=== PATIENT | female | born 1955 | race Caucasian/White ===

== ENCOUNTER 2020-06-10 07:07 | Outpatient (REF) | payer OTHER, SELFPAY ==
[2020-06-10 11:48] LABS: Alanine Aminotransferase 22 U/L (0-31); Anion Gap 15 (12-20); Aspartate Amino Transferase 17 U/L (5-31); Blood Urea Nitrogen 20 mg/dL (9-16); Calcium 9.3 mg/dL (8.4-10.2); Carbon Dioxide 29 mmol/L (22-29); Chloride 102 mmol/L (96-108); Cholesterol 212 mg/dL; Estimated Glomerular Filt Rate > 60; Glucose Fasting 90 mg/dL (60-99); HDL Cholesterol 60 mg/dL; LDL Cholesterol Calculated 132 mg/dl; Potassium 4.6 mmol/l (3.3-5.1); Sodium 141 mmol/L (135-145); Triglycerides 100 mg/dL
== END 2020-06-10 07:08 | disposition home or self-care (01) ==
LOC: HO.HMGCLDS 07:07
PROVIDERS: PCP Internal Medicine; Visit Provider Internal Medicine
DX: E78.2 Mixed hyperlipidemia (principal); M79.671 Pain in right foot; G89.29 Other chronic pain; I10 Essential (primary) hypertension; Z86.79 Personal history of other diseases of the circulatory system
CPT/HCPCS: 36415; 80048; 80061; 84443; 84450; 84460

== ENCOUNTER 2021-02-22 08:36 | Outpatient (REF) | payer OTHER, SELFPAY | END 2021-02-22 08:37 | disposition home or self-care (01) | LOC: HO.HMGCLDS 08:36 | PROVIDERS: PCP Internal Medicine; Visit Provider Internal Medicine | DX: Z20.822 Contact with and (suspected) exposure to COVID-19 (principal) | CPT/HCPCS: C9803; U0003; U0005 ==

== ENCOUNTER 2021-08-19 11:41 | Outpatient (REF) | payer OTHER, SELFPAY ==
--- NOTE | ~2021-08-19 | US_ITS ---
EXAMINATION: US RETROPERITONEAL LIMITED (RENAL ONLY) CLINICAL INFORMATION: Acute right flank pain, hematuria. COMPARISON: None TECHNIQUE: Routine retroperitoneal renal ultrasound is performed. FINDINGS: RIGHT KIDNEY: 11.8 x 4.9 x 6.8 cm (SAG x AP x TRV). The kidney is normal in size, contour, and echogenicity. Renal cortical thickness is normal. No calculi or focal parenchymal lesions. No hydronephrosis. LEFT KIDNEY: 4.9 x 4.9 x 5.1 cm (SAG x AP x TRV). The kidney is normal in size, contour, and echogenicity. Renal cortical thickness is normal. No calculi or focal parenchymal lesions. No hydronephrosis. US/US renal BI IMPRESSION: Unremarkable renal ultrasound..
== END 2021-08-19 11:42 | disposition home or self-care (01) ==
LOC: HO.HMGCX 11:41
PROVIDERS: Visit Provider Internal Medicine
DX: R10.9 Unspecified abdominal pain (principal); R31.9 Hematuria, unspecified
CPT/HCPCS: 76775

== ENCOUNTER 2021-08-23 22:45 | Emergency (ER) | payer OTHER, SELFPAY ==
--- NOTE | ~2021-08-23 | CT_ITS ---
EXAMINATION: CT ABDOMEN AND PELVIS WITHOUT CONTRAST CLINICAL INFORMATION: Left flank pain COMPARISON: None TECHNIQUE: Multidetector volumetric imaging was performed from the superior aspect of the liver through the pubic symphysis. Sagittal and coronal reformatted images were obtained on the technologist's workstation. This CT examination was performed using dose optimization techniques as appropriate, variously including the following: *Automated exposure control *Adjustment of mA and/or kV according to patient size (this includes techniques or standardized protocols for targeted exams where dose is matched to indication/reason for exam; i.e. extremities or head) *Use of iterative reconstruction technique DLP: 895 mGy-cm FINDINGS: LUNG BASES: The visualized lung bases are unremarkable. Coronary artery calcifications are present. LIVER, GALLBLADDER, AND BILIARY TREE: The liver is normal in size, shape, and attenuation. No focal hepatic lesion or biliary ductal dilatation is present. The gallbladder is unremarkable with no evidence of radiopaque gallstones, gallbladder wall thickening, or obvious pericholecystic inflammatory changes. PANCREAS: Unremarkable. SPLEEN: Unremarkable. ADRENAL GLANDS: Unremarkable. KIDNEYS AND URETERS: There is a 4 mm calculus at the left ureterovesicular junction with mild hydroureteronephrosis. No right hydronephrosis. No additional calculi are seen bilaterally. BLADDER: Mildly distended without significant wall thickening. GASTROINTESTINAL TRACT: No evidence of bowel obstruction or significant wall thickening. Sigmoid colon diverticulosis is noted. The appendix is unremarkable. No free fluid or free air is seen. ABDOMINAL WALL: No significant hernia is appreciated. LYMPH NODES: Normal. VASCULAR: Scattered atherosclerotic calcifications are noted. PELVIC VISCERA: Patient may be status post partial hysterectomy. OSSEOUS STRUCTURES: Degenerative changes are noted in the spine. CT/CT abdomen pelvis wo con IMPRESSION: 1. Left ureterovesicular junction calculus measuring 4 mm with mild hydroureteronephrosis. 2. Coronary artery calcifications. Correlation with cardiac risk factors is recommended.
[2021-08-24 00:20] LABS: MANUAL DIFF FLAG NO
[2021-08-24 00:21] LABS: Basophils Percent Auto 0.3 % (0-2); Eosinophils Absolute Auto 0.1 X10*3/uL (0.0-0.4); Eosinophils Percent Auto 1.1 % (0-4); Hematocrit 39.9 % (37.0-47.0); Hemoglobin 13.4 g/dl (12.0-16.0); Imm Gran Abs Auto 0.03 X10*3/uL (0.00-0.03); Imm Gran Pct Auto 0.3 % (0.0-0.4); Lymphocytes Absolute Auto 1.7 X10*3/uL (1.2-4.9); Lymphocytes Percent Auto 17.9 % (20-40); Mean Corpuscular HGB Conc 33.6 g/dl (31.0-35.0); Mean Corpuscular Hemoglobin 31.6 pg (27.0-33.0); Mean Corpuscular Volume 94.1 fL (80.0-98.0); Mean Platelet Volume 10.4 fL (9.4-12.3); Monocytes Absolute Auto 0.4 X10*3/uL (0.1-1.2); Monocytes Percent Auto 4.3 % (2-11); Neutrophils Absolute Auto 7.3 x10*3/uL (2.0-8.3); Neutrophils Percent Auto 76.1 % (45-73); Platelet Count 211 X10*3/uL (160-400); Red Blood Count 4.24 X10*6/uL (4.20-5.50); Red Cell Distribution Width 13.2 % (11.0-16.0); White Blood Count 9.6 X10*3/uL (4.8-10.8)
[2021-08-24 00:44] VITALS: BP 134/74; PULSE 56; RESP 18; TEMP 36.9; O2SAT 100; BMI 37.1
[2021-08-24 01:18] LABS: Alanine Aminotransferase 33 U/L (0-31); Albumin Level 4.5 g/dL (3.5-5.0); Alkaline Phosphatase 64 U/L (39-117); Anion Gap 15 (12-20); Aspartate Amino Transferase 24 U/L (5-31); Bilirubin Total 0.7 mg/dL (0.0-1.0); Blood Urea Nitrogen 24 mg/dL (9-16); Carbon Dioxide 28 mmol/L (22-29); Chloride 101 mmol/L (96-108); Creatinine Clr Calc Pharmacy 88.9; Estimated Glomerular Filt Rate > 60; Glucose Random 175 mg/dL (60-115); Sodium 140 mmol/L (135-145); Total Protein 7.1 g/dL (6.5-8.0)
[2021-08-24 02:14] LABS: Appearance Urine HAZY; Color Urine YELLOW; Glucose Urine UA NEG (NEG); Leukocyte Esterase Urine TRACE (NEG); Nitrite Urine NEG (NEG); PH 5.5 (5.0-8.0); Specific Gravity - Urine >= 1.030 (1.005-1.025); UACC Culture Trigger YES; Urine Blood 3+ (NEG); Urine Ketones 5 MG/DL (NEG); Urine Protein NEG (NEG-TRACE)
[2021-08-24 02:23] LABS: Bacteria Urine 3+ /LPF; Mucus Urine 3+ /LPF; Squamous Epithelial Cell Urine 3+ /LPF
[2021-08-24 07:18] VITALS: BP 162/73; PULSE 62; RESP 14; TEMP 36.4; O2SAT 98
--- NOTE | 2021-08-24 07:27 | ED.ABDPAIN ---
HPI - Abdominal Pain General Chief Complaint: Abdominal Pain Stated Complaint: kidney stones Time Seen by Provider: 08/24/21 00:06 Source: patient and family () Mode of arrival: ambulatory Limitations: no limitations History of Present Illness HPI narrative: 65 years old female came in for evaluation of left flank pain. Left flank pain started at 23:00 a wake the patient up from sleep, pain was severe and constant described as dull aching pain 10/10 that radiates down to the left groin area associated with nausea and vomiting, no relieving factor, no aggravating factor, patient had similar pain last week on the right side had unremarkable ultrasound ordered by her PCP. Severe left flank pain started to alleviate since 01:00 am. No history of kidney stones in the past. No history of abdominal surgery. Patient declined any dysuria or frequency urination. Related Data Home Medications Medication Instructions Recorded Confirmed aspirin 325 mg tablet 325 mg PO DAILY 05/01/20 08/19/21 cholecalciferol (vitamin D3) 50 50 mcg PO DAILY 05/01/20 08/19/21 mcg (2,000 unit) capsule flu vac [id number] 36mos up(PF) ml IM ONCE 05/01/20 08/19/21 valacyclovir 500 mg tablet 500 mg PO DAILY 06/12/20 08/24/21 Previous Rx's Medication Instructions Recorded azelastine 205.5 mcg (0.15 %) 1 spray INTRANASAL DAILY 30 Days 12/19/20 nasal spray #30 ml albuterol sulfate 90 mcg/actuation 1 inh INHALATION QID PRN #6.7 g 05/31/21 aerosol inhaler atenolol 50 mg tablet 50 mg PO DAILY #90 tab 07/15/21 hydrochlorothiazide 12.5 mg capsule 12.5 mg PO DAILY #90 cap 07/15/21 nitrofurantoin 100 mg PO Q12H 7 Days #14 cap 08/24/21 monohydrate/macrocrystals 100 mg capsule (Macrobid) Allergies Allergy/AdvReac Type Severity Reaction Status Date / Time bactrim Allergy Unknown swelling, Verified 08/19/21 10:52 hives contrast dye Allergy Unknown swelling Verified 08/19/21 10:52 of ear sulfamethoxazole Allergy Unknown HIVES Verified 08/19/21 10:52 [From BACTRIM] trimethoprim [From BACTRIM] Allergy Unknown HIVES Verified 08/19/21 10:52 percocet AdvReac Unknown nauseous Uncoded 08/19/21 10:52 and madonnaky Review of Systems Review of Systems All other systems are reviewed and are negative Constitutional: Reports as per HPI and Reports no additional constitutional complaints Eyes: Reports as per HPI and Reports no additional eye complaints Reports system reviewed and no additional complaints, except as documented Cardiovascular: Reports as per HPI and Reports no additional cardiovascular complaints Respiratory: Reports as per HPI and Reports no additional respiratory complaints Gastrointestinal: Reports as per HPI and Reports no additional gastrointestinal complaints Genitourinary: Reports no additional female genitourinary complaints Musculoskeletal: Reports no additional musculoskeletal complaints Skin/Breast: Reports system reviewed and no additional complaints, except as docu Psychiatric: Reports no additional psychiatric complaints Endocrine: Reports no additional endocrine complaints Hematologic/Lymphatic: Reports no additional hematologic/lymphatic complaints Allergic/Immunologic: Reports no additional allergic/immunologic complaints Reports system reviewed and no additional complaints, except as documented and Reports Abnormal speech present [facility] Past Medical History Medical History Essential hypertension History of atrial fibrillation Mixed dyslipidemia Pain, foot, right, chronic Tibia and fibula open fracture, right Surgical History History of ankle surgery History of shoulder surgery Family History Family History Father CVD (cardiovascular disease) Maternal Aunt Colon cancer Maternal Uncle Colon cancer Brother No problems noted. Brother No problems noted. Sister No problems noted. Sister No problems noted. Son No problems noted. Daughter No problems noted. Social History Social History Housing: House Alcohol intake: current Patient Tobacco Use Status: Former Tobacco user e-Cigarette/Vaping Use: Never Used Advance Directives: No Advance Directives Information Provided: Yes service: No Current occupational status: employed Cognitive needs: No Hearing needs: No Vision needs: No Physical Exam ED Vital Signs: Vital Signs - 24 hr 08/24/21 00:44 08/24/21 07:18 Temperature 98.5 F 97.6 F Pulse Rate 56 62 Respiratory Rate 18 14 Blood Pressure 134/74 162/73 H Pulse Oximetry 100 98 BMI result Body Mass Index 37.1 Vital signs have been reviewed as appeared to be correct. Blood pressure normal. Heart rate normal. Respiration rate normal. Temperature normal. Oxygen saturation normal. Appearance: Alert. Oriented X3. No acute distress. Head: Normal external exam. Normocephalic. Atraumatic. No Urias signs noted. No raccoon eyes noted Eyes: PERRLA. EOMI. Conjunctiva and sclera normal. Eyelids normal. ENT: TM's Normal. Pharynx normal. Uvula midline. Moist mucous membranes. No trismus noted. No drooling noted. No muffled voice noted. Neck: Normal inspection. Neck supple. FROM. No adenopathy. Thyroid Normal. No meningeal signs. No neck mass noted. CVS: Normal heart rate and rhythm. Heart sound normal. No murmurs noted. Pulses normal throughout. Respiratory: No respiratory distress. Painless inspiration. Breath sounds normal. No wheezes/rales/rhonchi noted. Chest nontender. No accessory muscle usage noted or decreased air movement noted. Abdomen: Soft and nontender. Bowel sounds normal in all 4 quadrants. No distention noted. No organomegaly noted. No visible injury noted. Back: No CVA tenderness. Full range of motion noted. Skin: Skin warm and dry. Normal skin color. Normal skin turgor. No rashes/lesions/lacerations noted. Extremities: No lower extremity edema. Extremities exhibit normal range of motion. Extremities nontender. Neuro: Oriented X 3. Cranial nerve exam: II-XII are grossly intact No motor deficit. No sensory deficit. Reflexes normal. Course Course Course Narrative: Assessment and plan. 65 years old female came in for evaluation of left flank pain, CT confirming 4 mm stone in the left UVJ, since patient did not have severe pain for for the past 5-6 hours is likely patient passed a stone. UA indicating mild UTI will start on Macrobid. MDM - Abdominal Pain Medical Records Attestation: I reviewed the patient's medical records. Lab Data Attestation: I reviewed the patient's lab results. Result diagrams: 08/24/21 00:17 08/24/21 00:17 Labs: Lab Results 08/24/21 08/24/21 08/24/21 Range/Units 00:17 00:17 02:01 WBC 9.6 (4.8-10.8) X10*3/uL RBC 4.24 (4.20-5.50) X10*6/uL Hgb 13.4 (12.0-16.0) g/dl Hct 39.9 (37.0-47.0) % MCV 94.1 (80.0-98.0) fL MCH 31.6 (27.0-33.0) pg MCHC 33.6 (31.0-35.0) g/dl RDW 13.2 (11.0-16.0) % Plt Count 211 (160-400) X10*3/uL MPV 10.4 (9.4-12.3) fL Immature Gran % (Auto) 0.3 (0.0-0.4) % Neut % (Auto) 76.1 H (45-73) % Lymph % (Auto) 17.9 L (20-40) % Norman % (Auto) 4.3 (2-11) % Eos % (Auto) 1.1 (0-4) % Baso % (Auto) 0.3 (0-2) % Lymph # (Auto) 1.7 (1.2-4.9) X10*3/uL Norman # (Auto) 0.4 (0.1-1.2) X10*3/uL Eos # (Auto) 0.1 (0.0-0.4) X10*3/uL Baso # (Auto) 0.0 (0.0-0.2) X10*3/uL Abs Immat Gran (auto) 0.03 (0.00-0.03) X10*3/uL Absolute Neuts (auto) 7.3 (2.0-8.3) x10*3/uL Absolute Nucleated RBC 0.000 (0.0-0.012) X10*3/uL Nucleated RBC % (auto) 0.0 (0.0-0.2) /100WBC Sodium 140 (135-145) mmol/L Potassium 4.0 (3.3-5.1) mmol/L Chloride 101 (96-108) mmol/L Carbon Dioxide 28 (22-29) mmol/L Anion Gap 15 (12-20) BUN 24 H (9-16) mg/dL Creatinine 0.79 (0.5-1.4) mg/dL Estim Creat Clear Calc 88.9 Estimated GFR > 60 Random Glucose 175 H (60-115) mg/dL Calcium 10.0 D (8.4-10.2) mg/dL Total Bilirubin 0.7 (0.0-1.0) mg/dL AST 24 D (5-31) U/L ALT 33 H (0-31) U/L Alkaline Phosphatase 64 (39-117) U/L Total Protein 7.1 (6.5-8.0) g/dL Albumin 4.5 (3.5-5.0) g/dL Urine Color YELLOW Urine Appearance HAZY Urine pH 5.5 (5.0-8.0) Ur Specific [place] >= 1.030 H (1.005-1.025) Urine Protein NEG (NEG-TRACE) MG/DL Urine Glucose (UA) NEG (NEG) MG/DL Urine Ketones 5 (NEG) MG/DL Urine Blood 3+ H (NEG) Urine Nitrite NEG (NEG) Ur Leukocyte Esterase TRACE H (NEG) Urine RBC 5-9 H (0) /HPF Urine WBC 15-29 H (0-4) /HPF Ur Squamous Epith Cells 3+ /LPF Urine Bacteria 3+ /LPF Urine Mucus 3+ /LPF Imaging Data Abdomen and pelvis CT: Attestation: I personally reviewed and interpreted this imaging study as follows: Radiologist's impression: 1.? Left ureterovesicular junction calculus measuring 4 mm with mild hydroureteronephrosis. 2.? Coronary artery calcifications. Correlation with cardiac risk factors is recommended. ? Discharge Plan Discharge Clinical Impression: Calculus of kidney, UTI (urinary tract infection) Patient Disposition: Home, Self-Care Instructions: Urinary Tract Infection in Women (DC), Renal Colic (ED) Prescriptions: New nitrofurantoin monohyd/m-cryst [Macrobid] 100 mg capsule 100 mg PO Q12H 7 Days Qty: 14 0RF Rx Instructions: must administer with a meal/food No Action azelastine 205.5 mcg (0.15 %) spray,non-aerosol 1 spray intranasal DAILY 30 Days Qty: 30 2RF valacyclovir 500 mg tablet 500 mg PO DAILY 0RF Afluria Qd 2019-(3yr up)(PF) 60 mcg (15 mcg x 4)/0.5 mL syringe IM ONCE 0RF cholecalciferol (vitamin D3) 50 mcg (2,000 unit) capsule 50 mcg PO DAILY 0RF aspirin 325 mg tablet 325 mg PO DAILY 0RF albuterol sulfate 90 mcg/actuation HFA aerosol inhaler 1 inh inhalation QID PRN (Reason: shortness of breath or wheezing) Qty: 6.7 1RF hydrochlorothiazide 12.5 mg capsule 12.5 mg PO DAILY Qty: 90 2RF atenolol 50 mg tablet 50 mg PO DAILY Qty: 90 2RF Referrals: Vasu Torres MD [Physician] - 2 days Stand Alone Forms: Work/School Release
[2021-08-24] MEDS: Nitrofurantoin Monohyd/M-Cryst 100 MG CAPSULE PO (07:52)
== END 2021-08-24 08:00 | disposition home or self-care (01) ==
PROVIDERS: Physician Assistant Medical; Emergency Provider Emergency Medicine
DX: N13.2 Hydronephrosis with renal and ureteral calculous obstruction (principal); N39.0 Urinary tract infection, site not specified; I10 Essential (primary) hypertension; E78.5 Hyperlipidemia, unspecified; I48.91 Unspecified atrial fibrillation; Z87.891 Personal history of nicotine dependence
CPT/HCPCS: 36415; 74176; 80053; 81001; 85025; 87086; 99283; 99284

== ENCOUNTER 2021-08-25 09:47 | Outpatient (REF) | payer OTHER, SELFPAY ==
[2021-08-25 11:43] LABS: Estimated Average Glucose 100 mg/dL; Hemoglobin A1c % 5.1 %
[2021-08-25 12:12] LABS: Alanine Aminotransferase 35 U/L (0-31); Anion Gap 11 (12-20); Aspartate Amino Transferase 24 U/L (5-31); Blood Urea Nitrogen 16 mg/dL (9-16); Calcium 9.5 mg/dL (8.4-10.2); Carbon Dioxide 29 mmol/L (22-29); Chloride 105 mmol/L (96-108); Cholesterol 190 mg/dL; Estimated Glomerular Filt Rate > 60; Glucose Fasting 97 mg/dL (60-99); HDL Cholesterol 56 mg/dL; LDL Cholesterol Calculated 111 mg/dl; Potassium 4.2 mmol/L (3.3-5.1); Sodium 141 mmol/L (135-145); Triglycerides 118 mg/dL
[2021-08-25 12:36] LABS: TSH reflex Free T4 1.74 uIU/mL (0.32-4.0); Vitamin D 25-OH Total 48.7 ng/mL (>30)
== END 2021-08-25 09:48 | disposition home or self-care (01) ==
LOC: HO.HMGCLDS 09:47
PROVIDERS: PCP Internal Medicine; Visit Provider Internal Medicine
DX: E78.2 Mixed hyperlipidemia (principal); I10 Essential (primary) hypertension; R73.9 Hyperglycemia, unspecified; Z78.0 Asymptomatic menopausal state; Z86.79 Personal history of other diseases of the circulatory system
CPT/HCPCS: 36415; 80048; 80061; 82306; 83036; 84443; 84450; 84460

== ENCOUNTER → 2021-09-20 08:20 | Outpatient (BNVA) | payer OTHER, SELFPAY | PROVIDERS: PCP Internal Medicine | DX: Z13.89 Encounter for screening for other disorder (principal) ==

== ENCOUNTER 2021-10-15 08:55 | Outpatient (REF) | payer OTHER, SELFPAY ==
--- NOTE | ~2021-10-15 | US_ITS ---
EXAMINATION: US RETROPERITONEAL LIMITED (RENAL ONLY) CLINICAL INFORMATION: Calculus of ureter. COMPARISON: CT abdomen and pelvis 08/24/2021. Renal ultrasound 08/19/2021. TECHNIQUE: Real-time imaging of the kidneys. FINDINGS: RIGHT KIDNEY: 12.1 x 5.3 x 5.7 cm (SAG x AP x TRV). The kidney is normal in size, contour, and echogenicity. Renal cortical thickness is normal. No calculi or focal parenchymal lesions. No hydronephrosis. LEFT KIDNEY: 12.5 x 5.4 x 5.7 cm (SAG x AP x TRV). The kidney is normal in size, contour, and echogenicity. Renal cortical thickness is normal. No calculi or focal parenchymal lesions. No hydronephrosis. US/US renal BI IMPRESSION: Unremarkable renal ultrasound.
== END 2021-10-15 08:56 | disposition home or self-care (01) ==
LOC: HO.HMGCX 08:55
DX: N20.1 Calculus of ureter (principal)
CPT/HCPCS: 76775

== ENCOUNTER → 2021-10-21 10:13 | Outpatient (BNVA) | payer OTHER, SELFPAY | PROVIDERS: PCP Internal Medicine | DX: Z13.89 Encounter for screening for other disorder (principal) ==

== ENCOUNTER 2022-04-08 10:01 | Outpatient (REF) | payer OTHER, SELFPAY ==
--- NOTE | ~2022-04-08 | US_ITS ---
EXAMINATION: US RETROPERITONEAL LIMITED (RENAL ONLY) CLINICAL INFORMATION: Calculus of ureter. COMPARISON: Renal ultrasound 10/15/2021 and 08/19/2021. CT abdomen and pelvis 08/24/2021. TECHNIQUE: Real-time imaging of the kidneys. FINDINGS: RIGHT KIDNEY: 12.6 x 5.2 x 7.2 cm (SAG x AP x TRV). The kidney is normal in size, contour, and echogenicity. Renal cortical thickness is normal. No calculi or focal parenchymal lesions. No hydronephrosis. LEFT KIDNEY: 12.3 x 5.1 x 5.5 cm (SAG x AP x TRV). The kidney is normal in size, contour, and echogenicity. Renal cortical thickness is normal. No calculi or focal parenchymal lesions. No hydronephrosis. US/US renal BI IMPRESSION: Unremarkable examination.
== END 2022-04-08 10:02 | disposition home or self-care (01) ==
LOC: HO.HMGCX 10:01
PROVIDERS: PCP Internal Medicine
DX: N20.1 Calculus of ureter (principal)
CPT/HCPCS: 76775

== ENCOUNTER 2022-05-26 06:17 | Outpatient (REF) | payer OTHER, SELFPAY ==
[2022-05-26 12:06] LABS: Alanine Aminotransferase 26 U/L (0-31); Anion Gap 12 (12-20); Aspartate Amino Transferase 20 U/L (5-31); Blood Urea Nitrogen 21 mg/dL (9-16); Calcium 9.5 mg/dL (8.4-10.2); Carbon Dioxide 30 mmol/L (22-29); Chloride 104 mmol/L (96-108); Cholesterol 208 mg/dL; Estimated Glomerular Filt Rate > 60; Glucose Fasting 94 mg/dL (60-99); HDL Cholesterol 55 mg/dL; LDL Cholesterol Calculated 123 mg/dl; Potassium 4.2 mmol/L (3.3-5.1); Sodium 142 mmol/L (135-145); Triglycerides 150 mg/dL
[2022-05-26 12:35] LABS: Vitamin D 25-OH Total 41.5 ng/mL (>30)
== END 2022-05-26 06:18 | disposition home or self-care (01) ==
LOC: HO.HMGCLDS 06:17
PROVIDERS: PCP Internal Medicine; Visit Provider Internal Medicine
DX: Z00.01 Encounter for general adult medical examination with abnormal findings (principal); I10 Essential (primary) hypertension
CPT/HCPCS: 36415; 80048; 80061; 82306; 84450; 84460

== ENCOUNTER → 2022-06-10 10:47 | Outpatient (BNVA) | payer OTHER, SELFPAY | PROVIDERS: PCP Internal Medicine; Visit Provider Nurse Practitioner Family | DX: Z13.89 Encounter for screening for other disorder (principal) ==

== ENCOUNTER 2022-11-25 07:39 | Outpatient (REF) | payer OTHER, SELFPAY ==
--- NOTE | ~2022-11-25 | US_ITS ---
EXAMINATION: US RETROPERITONEAL LIMITED (RENAL ONLY) CLINICAL INFORMATION: Calculus of kidney. COMPARISON: Renal ultrasound 04/08/2022 and 10/15/2021. CT abdomen and pelvis 08/24/2021. TECHNIQUE: Real-time imaging of the kidneys. FINDINGS: RIGHT KIDNEY: 13.0 x 5.3 x 5.9 cm (SAG x AP x TRV). The kidney is normal in size, contour, and echogenicity. Renal cortical thickness is normal. No calculi or focal parenchymal lesions. No hydronephrosis. LEFT KIDNEY: 13.2 x 5.9 x 6.0 cm (SAG x AP x TRV). The kidney is normal in size, contour, and echogenicity. Renal cortical thickness is normal. No calculi or focal parenchymal lesions. No hydronephrosis. US/US renal BI IMPRESSION: Normal renal ultrasound.
== END 2022-11-25 07:40 | disposition home or self-care (01) ==
LOC: HO.US 07:39
PROVIDERS: PCP Internal Medicine; Visit Provider Nurse Practitioner Family
DX: N20.0 Calculus of kidney (principal)
CPT/HCPCS: 76775

== ENCOUNTER 2022-12-09 09:17 | Outpatient (AMB) | payer OTHER, SELFPAY ==
--- NOTE | 2022-12-09 09:17 | MHC.OFFVIS ---
Intake Intake Visit Reasons: 6m follow up/US Intake Note: Patient is present for follow up ultrasound/renal stones (imaging 11/25) Urology Medications: Vitamin B6 Blood Thinner: aspirin Behavioral Analyst Required: No Accompanied by: Self / Same As Patient Allergies bactrim Allergy (Unknown, Verified 12/09/22 09:51) swelling, hives contrast dye Allergy (Unknown, Verified 12/09/22 09:51) swelling of ear sulfamethoxazole [From BACTRIM] Allergy (Unknown, Verified 12/09/22 09:51) HIVES trimethoprim [From BACTRIM] Allergy (Unknown, Verified 12/09/22 09:51) HIVES percocet Adverse Reaction (Unknown, Uncoded 12/09/22 09:51) nauseous and shaky Medication List - Last Reconciled 12/09/22 by YESSY Lopez- aspirin (Adult Low Dose Aspirin) 81 mg PO DAILY atenolol 50 mg PO DAILY azelastine 1 spray intranasal DAILY 30 days hydrochlorothiazide 12.5 mg PO DAILY pyridoxine (vitamin B6) 50 mg (1/2 x 100 mg) PO DAILY 90 days HPI HPI Comments History of Present Illness Details Terra Davidson is a pleasant 67 year old female patient of Dr Oliver. She has a past medical history of renal stones, AFib, hypertension, and mixed dyslipidemia. She presents to the office today for a follow up regarding her nephrolithaisis. When asked she reports to be doing well. She states she continues to attempt to drink plenty of fluids daily. Patient denies any urinary concerns at this time. Recent renal imaging reviewed with the patient today unremarkable examination. In office UA WNL. Patient reports compliance with Vitamin B6. Patient also discusses hopefully being able to retire soon and is looking forward to it. She discusses taking care of her mom who has been declining in health. Patient otherwise denies any issues or concerns at this time. She is happy with her current voiding parameters. [facility], [facility] Medical History Bilateral renal stones Essential hypertension History of atrial fibrillation Left knee pain Mixed dyslipidemia Numbness of fingers of both hands Pain, foot, right, chronic Sinus bradycardia by electrocardiogram Tibia and fibula open fracture, right Ureterolithiasis Surgical History History of ankle surgery History of shoulder surgery Family History Father CVD (cardiovascular disease) Maternal Aunt Colon cancer Maternal Uncle Colon cancer Brother No problems noted. Brother No problems noted. Sister No problems noted. Sister No problems noted. Son No problems noted. Daughter No problems noted. Social History Housing: House Alcohol intake: current Patient Tobacco Use Status: Former Tobacco user e-Cigarette/Vaping Use: Never Used service: No Current occupational status: employed Cognitive needs: No Hearing needs: No Vision needs: No Review of Systems Const Reports no additional complaints Eyes Reports no additional complaints ENT Reports no additional complaints Card Reports as per HPI Resp Reports no additional complaints GI Reports no additional complaints Reports as per HPI Musc Reports no additional complaints Neuro Reports no additional complaints Psych Reports no additional complaints Endo Reports no additional complaints Ken/Lymph Reports no additional complaints Aller/Immun Reports no additional complaints Physical Exam Const General: cooperative, healthy appearing, comfortable, no acute distress, well developed, alert and awake Orientation/consciousness: patient oriented x3 Limitations: no limitations HEENT Head: Yes normal to inspection, Yes normocephalic and Yes atraumatic Eyes General: appearance normal, both eyes and all related structures Neck Neck: Yes normal visual inspection and Yes trachea midline Chest Chest palpation & inspection: normal inspection of the chest Resp Effort & Inspection: normal respiratory effort and able to speak in complete sentences Cardio Rate: regular rate GI Inspection: Yes normal to inspection General: Yes no CVA tenderness Back/Spine/Pelvis Back: no CVA tenderness Neuro General: patient oriented x3 Extrem General: Yes normal to inspection Psych Appearance: grossly normal and well kempt Mental Status: mental status grossly normal Speech and movement: Normal speech and movement present and Clear speech present Affect: normal affect Attitude: cooperative Thought process: Normal thought process present Thought content: Normal thought content present Insight: Good insight present (Psych) Judgement: Good judgement present (Psych) Results AMB Urinalysis, Automated UA Leukoctes 0 Alexia/uL Last Edit by Xiao Medrano on 12/09/22 09:35 UA Nitrite Last Edit by Xiao Medrano on 12/09/22 09:35 UA Urobilinogen 0.2 mg/dL Last Edit by Xiao Medrano on 12/09/22 09:35 UA Protein 15 mg/dL Last Edit by Xiao Medrano on 12/09/22 09:35 UA pH 6.0 Last Edit by Xiao Medrano on 12/09/22 09:35 UA Blood 0 Aaron/uL Last Edit by Xiao Medrano on 12/09/22 09:35 UA Specific [place] Level 1.025 Last Edit by Xiao Medrano on 12/09/22 09:35 UA Ketone Negative Last Edit by Xiao Medrano on 12/09/22 09:35 UA Bilirubin 0 mg/dL Last Edit by Xiao Medrano on 12/09/22 09:35 UA Glucose 0 mg/dL Last Edit by Xiao Medrano on 12/09/22 09:35 Results Reviewed Results Reviewed: Laboratory Last Values Urine pH (Auto) 6.0 12/09/22 09:19 Specific [place] Level (Auto) 1.025 12/09/22 09:19 Urine Protein (Auto) 15 mg/dL 12/09/22 09:19 Glucose (UA)(Auto) 0 mg/dL 12/09/22 09:19 Urine Ketones (Auto) Negative 12/09/22 09:19 Urine Blood (Auto) 0 Aaron/uL 12/09/22 09:19 Urine Bilirubin (Auto) 0 mg/dL 12/09/22 09:19 Urine Urobilinogen (Auto) 0.2 mg/dL 12/09/22 09:19 Leukocyte Esterase (Auto) 0 Alexia/uL 12/09/22 09:19 Date of Service: 11/25/22 EXAMINATION: US RETROPERITONEAL LIMITED (RENAL ONLY) FINDINGS: RIGHT KIDNEY: 13.0 x 5.3 x 5.9 cm (SAG x AP x TRV). The kidney is normal in size, contour, and echogenicity. Renal cortical thickness is normal. No calculi or focal parenchymal lesions. No hydronephrosis. LEFT KIDNEY: 13.2 x 5.9 x 6.0 cm (SAG x AP x TRV). The kidney is normal in size, contour, and echogenicity. Renal cortical thickness is normal. No calculi or focal parenchymal lesions. No hydronephrosis. IMPRESSION: Normal renal ultrasound. Assessment & Plan Assessment & Plan (1) Bilateral renal stones: Code(s): N20.0 - Calculus of kidney Plan In office urinalysis results reviewed with the patient today; as noted above Recent renal imaging results reviewed with the patient today; as noted above Educated, encouraged, instructed on the importance of drinking plenty of water daily. Continue adding 1 oz of lemon juice to water daily. Continue vitamin B6 as discussed and prescribed; will decrease dose to 50 mg daily; prescription provided Patient denies any urological issues or concerns at this time Renal ultrasound in 1 year Follow-up in 1 year with imaging to be completed prior; or sooner with any issues, concerns, and or questions. Orders: Orders US renal BI 364 Days N20.0 - Calculus of kidney AMB Urinalysis Automated Today Z13.9 - Encounter for screening, unspecified Medications: Changed From pyridoxine (vitamin B6) 100 mg PO DAILY 90 days 90 tabs 2RF To pyridoxine (vitamin B6) 50 mg (1/2 x 100 mg) PO DAILY 90 days 45 tabs 5RF Refilled pyridoxine (vitamin B6) 50 mg (1/2 x 100 mg) PO DAILY 90 days 45 tabs 5RF Patient Instructions: The patient had an opportunity to ask questions regarding the treatment plan. All questions were answered. Physical exam, labs, and imaging were discussed and reviewed in detail. As well as risks, benefits, and discussion of treatment choices. No major barriers to understanding were identified. The patient expressed understanding and agreement with the above treatment plan. The patient was made aware they should contact our office by phone for worsening of their current condition, the appearance of new symptoms, or with any questions or concerns. Compliance is encouraged with any medications and follow up testing that is ordered. It is a privilege to be allowed the opportunity to participate in? your urological care.? Again, if you have any questions or concerns If you have any questions or concerns please do not hesitate to contact me. The office is [phone]. This note is constructed using voice recognition software. 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 Yours sincerely, IZAIAH Lopez Coding Level of Care Code Est Pt Level 3 (50365) Diagnoses Bilateral renal stones N20.0
== END 2022-12-09 09:50 | disposition home or self-care (01) ==
PROVIDERS: Visit Provider Nurse Practitioner Family
DX: N20.0 Calculus of kidney (principal)
CPT/HCPCS: 99213

== ENCOUNTER → 2022-12-09 09:17 | Outpatient (BNVA) | payer OTHER, SELFPAY | PROVIDERS: Visit Provider Nurse Practitioner Family ==

== ENCOUNTER 2022-12-20 14:59 | Outpatient (AMB) | payer OTHER, SELFPAY ==
--- NOTE | 2022-12-20 15:33 | AM.OFFWIN_ITS ---
Intake Vital Signs 12/20/22 15:36 Height 5 ft 6 in BP 120/68 Blood Pressure Location Rt brachial Position Sitting Pulse 60 Pulse Source Pulse Oximeter Temp 97 F Temp Source Temporal Artery Scan Pulse Oximetry (%) 98 Oxygen Delivery Method Room Air Intake Visit Reasons: EST/sinus infection Intake Note: Pt is here c/o possible sinus infection. Pt states she has a history of allergies and has been sneezing a lot. Pt states over the last week she has had alot of pressure over her eyes and face. Pt also states her teeth hurt and she has an on going headache. Pt also c/o bilateral ear discomfort. Patient Tobacco Use Status: Former Tobacco user Allergies bactrim Allergy (Unknown, Verified 12/21/22 06:09) swelling, hives contrast dye Allergy (Unknown, Verified 12/21/22 06:09) swelling of ear sulfamethoxazole [From BACTRIM] Allergy (Unknown, Verified 12/21/22 06:09) HIVES trimethoprim [From BACTRIM] Allergy (Unknown, Verified 12/21/22 06:09) HIVES percocet Adverse Reaction (Unknown, Uncoded 12/21/22 06:09) nauseous and shaky Medication List - Last Reconciled 12/21/22 by Jonas Nguyen MD aspirin (Adult Low Dose Aspirin) 81 mg PO DAILY atenolol 50 mg PO DAILY azelastine 1 spray intranasal DAILY 30 days azithromycin take 500 mg today (day 1), then 250 mg for 4 days (days 2-5) PO fluticasone propionate 50 mcg/actuation (Flonase Allergy Relief) 1 spray intranasal DAILY hydrochlorothiazide 12.5 mg PO DAILY pyridoxine (vitamin B6) 50 mg (1/2 x 100 mg) PO DAILY 90 days Do you need a note to return to daycare/school/sports/work: No HPI EST/sinus infection HPI Details Patient presents for a sick visit. Reporting symptoms of sinus congestion, sore throat and difficulty swallowing. Low-grade fever. No family member is sick. No recent travel. Patient reports symptoms of malaise and fatigue. [facility] Medical History Bilateral renal stones Essential hypertension History of atrial fibrillation Left knee pain Mixed dyslipidemia Numbness of fingers of both hands Pain, foot, right, chronic Sinus bradycardia by electrocardiogram Tibia and fibula open fracture, right Ureterolithiasis Surgical History History of ankle surgery History of shoulder surgery Family History Father CVD (cardiovascular disease) Maternal Aunt Colon cancer Maternal Uncle Colon cancer Brother No problems noted. Brother No problems noted. Sister No problems noted. Sister No problems noted. Son No problems noted. Daughter No problems noted. Social History Housing: House Alcohol intake: current Patient Tobacco Use Status: Former Tobacco user e-Cigarette/Vaping Use: Never Used service: No Current occupational status: employed Cognitive needs: No Hearing needs: No Vision needs: No Physical Exam Vital Signs: Last Vital Signs Temp 97 F 12/20/22 15:36 Pulse 60 12/20/22 15:36 BP 120/68 12/20/22 15:36 Pulse Ox 98 12/20/22 15:36 Oxygen Delivery Method Room Air 12/20/22 15:36 Const General: cooperative and healthy appearing Nutritional Appearance: well nourished Orientation/consciousness: patient oriented x3 Limitations: no limitations HEENT Head: Yes normal to inspection Eyes General: appearance normal, both eyes and all related structures Neck Neck: Yes normal visual inspection Chest Chest palpation & inspection: normal palpation of entire chest wall Resp Effort & Inspection: normal respiratory effort Neuro General: patient oriented x3 Assessment & Plan Assessment & Plan (1) Upper respiratory tract infection: Code(s): J06.9 - Acute upper respiratory infection, unspecified Plan: Antibiotics ordered. Increase fluid intake. Tylenol for aches and pains. If symptoms worsen, follow-up here for a recheck. Medications: New fluticasone propionate 50 mcg/actuation (Flonase Allergy Relief) administer into each nostril 1 spray intranasal DAILY 9.9 mL 1RF Refilled 2 azithromycin take 500 mg today (day 1), then 250 mg for 4 days (days 2-5) PO 6 tabs 0RF Coding Level of Care Code Est Pt Level 3 (87949) Diagnoses Upper respiratory tract infection J06.9
[2022-12-20 15:36] VITALS: BP 120/68; PULSE 60; TEMP 36.1; O2SAT 98
== END 2022-12-20 16:11 | disposition home or self-care (01) ==
PROVIDERS: PCP Internal Medicine; Visit Provider Internal Medicine
DX: J06.9 Acute upper respiratory infection, unspecified (principal)
CPT/HCPCS: 99213

== ENCOUNTER 2023-01-18 12:50 | Outpatient (AMB) | payer OTHER, SELFPAY ==
[2023-01-18 13:09] VITALS: BP 118/70; PULSE 58; O2SAT 98; BMI 38.1
--- NOTE | 2023-01-18 13:09 | A.OFFPC_ITS ---
Vital Signs 01/18/23 13:09 Height 5 ft 6 in Weight 236 lb BMI 38.1 BP 118/70 Blood Pressure Location Lt brachial Position Sitting Pulse 58 Pulse Source Pulse Oximeter Pulse Oximetry (%) 98 Oxygen Delivery Method Room Air Intake Visit Reasons: Intermittent lightheadedness Intake Note: Intermittent lightheadedness Allergies bactrim Allergy (Unknown, Verified 01/18/23 13:17) swelling, hives contrast dye Allergy (Unknown, Verified 01/18/23 13:17) swelling of ear sulfamethoxazole [From BACTRIM] Allergy (Unknown, Verified 01/18/23 13:17) HIVES trimethoprim [From BACTRIM] Allergy (Unknown, Verified 01/18/23 13:17) HIVES percocet Adverse Reaction (Unknown, Uncoded 01/18/23 13:17) nauseous and shaky Medication List - Last Reconciled 01/18/23 by Karie Oliver MD aspirin (Adult Low Dose Aspirin) 81 mg PO DAILY atenolol 50 mg PO DAILY fluticasone propionate 50 mcg/actuation (Flonase Allergy Relief) 1 spray intranasal DAILY hydrochlorothiazide 12.5 mg PO DAILY pyridoxine (vitamin B6) 50 mg (1/2 x 100 mg) PO DAILY 90 days valacyclovir (Valtrex) 500 mg PO DAILY Tobacco use date assessed: 01/18/23 Fall risk assessment: No Falls in past year Last assessed Fall Risk: 01/18/23 Dental Screening Dental Screen Date: 01/18/23 Did you have a dental visit in the last 12 months?: Yes Did you have a dental problem in the last 6 months where you did not have access to dental care?: Yes Was dental information given to patient?: Patient has dentist HPI HPI Comments History of Present Illness Details 67-year-old lady here today complaining of intermittent episodes of lightheadedness specially when leaning head back or quickly getting up from a supine position. This started several weeks ago, ever since she was treated for a sinus infection earlier this month. She also has been getting very frustrated about her inability to gain weight. She admits that most of it is her fault as she stress eats , especially when she is taking care of her mother up in the [facility] who is 97 years old. Would like a referral to see see a head librarian [facility] Medical History (Updated 01/18/23 @ 13:45 by Karie Oliver MD) Benign positional vertigo Bilateral renal stones Essential hypertension History of atrial fibrillation Left knee pain Mixed dyslipidemia Numbness of fingers of both hands Obesity (BMI 30-39.9) Pain, foot, right, chronic Sinus bradycardia by electrocardiogram Tibia and fibula open fracture, right Ureterolithiasis Surgical History History of ankle surgery History of shoulder surgery Family History Father CVD (cardiovascular disease) Maternal Aunt Colon cancer Maternal Uncle Colon cancer Brother No problems noted. Brother No problems noted. Sister No problems noted. Sister No problems noted. Son No problems noted. Daughter No problems noted. Social History Housing: House Alcohol intake: current Patient Tobacco Use Status: Former Tobacco user e-Cigarette/Vaping Use: Never Used service: No Current occupational status: retired Cognitive needs: No Hearing needs: No Vision needs: Yes Questionnaire PHQ-9 Over the last 2 weeks, how often have you been bothered by any of the following problems? 1. Little interest or pleasure in doing things: several days 2. Feeling down, depressed, or hopeless: several days 3. Trouble falling or staying asleep, or sleeping too much: several days 4. Feeling tired or having little energy: several days 5. Poor appetite or overeating: several days 6. Feeling bad about yourself - or that you are a failure or have let yourself or your family down: not at all 7. Trouble concentrating on things, such as reading the newspaper or watching television: not at all 8. Moving or speaking so slowly that other people could have noticed. Or the opposite - being so fidgety or restless that you have been moving around a lot more than usual: not at all 9. Thoughts that you would be better off or of hurting yourself in some way: not at all Total score: 5 Depression Screening Interpretation: Positive (Patient declines starting medication, able to control it as it is situational) 84006 - PHQ-9 Billing: Yes Source: Developed by Drs. Phillip Lynn, MirnaGeorgi Liriano and colleagues, with an educational sunshine from [employer]. Thrive Questionnaire Date Thrive assessed: 01/18/23 I am a: Patient What is your living situation today?: I have a steady place to live Within the past 12 months, did the food you bought not last and you didn't have the money to get more?: Never true Within the past 12 months, did you worry whether your food would run out before you got money to buy more?: Never true Do you have trouble paying for medicines?: No Do you have trouble getting transportation to medical appointments?: No Do you have trouble paying your heating and electricity bill?: No Do you have trouble taking care of your child, family member or friend?: No Do you have trouble with day-to-day activities such as bathing, preparing meals, shopping, managing finances, etc.?: No Are you currently unemployed and looking for a job?: No Are you interested in more education?: No AUDIT C Alcohol Use Questionnaire (AUDIT-C) 1. How often do you have a drink containing alcohol?: 2-4 times a month 2. How many drinks containing alcohol do you have on a typical day when you are drinking?: 1 or 2 3. How often do you have six or more drinks on one occasion?: Never Total Score: 2 MITCHELL-7 AMB Questionnaire MITCHELL-7 Date MITCHELL - 7 assessed: 01/18/23 Feeling nervous, anxious, or on edge: 1 = Several days Not being able to stop or control worryin = Not at all Worrying too much about different things: 0 = Not at all Trouble relaxin = Several days Being so restless that it is hard to sit still: 0 = Not at all Becoming easily annoyed or irritable: 0 = Not at all Feeling afraid as if something awful might happen: 0 = Not at all Total MITCHELL-7 score (0-4 normal; 5-9 mild; 10-14 moderate; 15-21 severe): 2 Source: Developed by Drs. Phillip Lynn, Georgi Herrera and colleagues, with an educational sunshine from [employer]. MITCHELL-7 Assessment Billing MITCHELL-7 Assessment Tool: MITCHELL-7 Assessment 14121 (Situational, does not want to start any medication or referral for therapy) Review of Systems Const Denies body aches, Denies fatigue, Denies fever(s), Denies headache(s) and Denies weakness ENT Denies headache(s), Denies nasal congestion, Denies nasal discharge and Denies sore throat Card Denies chest pain, Denies lightheadedness, Denies palpitations and Denies dyspnea Resp Denies chest congestion, Denies cough, Denies dyspnea and Denies wheezing GI Denies abdominal pain, Denies change in bowel habits and Denies heartburn Skin/Breast Denies breast pain, Denies breast mass, Denies lesions and Denies rash Neuro Denies headache(s) and Denies weakness Psych Reports as per HPI Endo Denies fatigue, Denies polydipsia, Denies polyuria and Denies palpitations Aller/Immun Denies seasonal rhinorrhea and Denies wheezing Physical exam (Primary Care) Vital Signs: Last Vital Signs Pulse 58 01/18/23 13:09 BP 118/70 01/18/23 13:09 Pulse Ox 98 01/18/23 13:09 Oxygen Delivery Method Room Air 01/18/23 13:09 BMI result Body Mass Index 38.1 BMI Assessment/Plan discussion: High (Referral to head librarian) BMI High, discussed plan: dietary and physical activity Tobacco/Smoking Status: Tobacco use Status Tobacco use date assessed 01/18/23 01/18/23 13:18 Patient Tobacco Use Status Former Tobacco user 01/18/23 13:18 e-Cigarette/Vaping Use Never Used 01/18/23 13:18 PHQ-9: PHQ-9 Score PHQ-9: Total score 5 01/18/23 13:20 Depression Screening Interpretation: Positive (Patient declines starting medication, able to control it as it is situational) Thrive Assessment: Date of Thrive Assessment Date Thrive assessed 01/18/23 01/18/23 13:20 Const Other: Obese, Alert oriented x3, no acute distress noted, ambulatory with normal gait Orientation/consciousness: patient oriented x3 HENMT Mouth: Normal oral and palatal mucosa present and moist mucous membranes Eyes General: appearance normal, both eyes and all related structures Neck Other: Supple, no lymphadenopathy, thyroid gland nonpalpable and nontender Resp Auscultation: clear to auscultation bilaterally Cardio Other: S1-S2 present, regular rate and rhythm GI Other: Normal bowel sounds, soft, nontender, no mass palpated General: Yes no CVA tenderness Back/Spine/Pelvis Back: no CVA tenderness Skin General skin exam: no rashes or lesions noted Neuro General: patient oriented x3, gait normal, moves all extremities, Normal light touch and pain sensation, no focal motor deficits and CN's II-XI intact bilaterally Extrem General: Yes full ROM, Yes no joint enlargement, Yes no pedal edema and Yes normal gait Psych Appearance: grossly normal and well kempt Mental Status: mental status grossly normal Speech and movement: Normal speech and movement present Affect: normal affect Attitude: cooperative Thought process: Normal thought process present Thought content: Normal thought content present Assessment and Plan Assessment & Plan (1) Benign positional vertigo: Code(s): H81.10 - Benign paroxysmal vertigo, unspecified ear Plan: Trial of meclizine 12.5 mg per tablet to take as needed for episodes of lightheadedness. Call if no improvement of symptoms and will refer to vestibular rehab for evaluation and treatment (2) Obesity (BMI 30-39.9): Code(s): E66.9 - Obesity, unspecified Plan: Discussed need to increase activity and wt reduction. Nutrition consult ordered Recommended focusing on improving your health instead of dieting. : Eat Mediterranean diet, limit foods high in fat, sugar, and calories, eat slowly, pay attention to portion sizes, plan your meals ahead of time, start regular physical activity 150 minutes of moderate intensity exercise or 90 minutes/week of vigorous exercise and increase water intake. Medications: New meclizine 12.5 mg PO DAILY PRN 20 tabs 0RF dizziness H81.10 - Benign paroxysmal vertigo, unspecified ear Coding Level of Care Code Est Pt Level 3 (22391) Diagnoses Benign positional vertigo H81.10 Obesity (BMI 30-39.9) E66.9 Additional Codes MITCHELL-7 Assessment Billing - MITCHELL-7 Assessment Tool: MITCHELL-7 Assessment 12261 ([id number])
== END 2023-01-18 13:42 | disposition home or self-care (01) ==
PROVIDERS: PCP Internal Medicine; Visit Provider Internal Medicine
DX: H81.13 Benign paroxysmal vertigo, bilateral (principal); E66.9 Obesity, unspecified; Z68.38 Body mass index [BMI] 38.0-38.9, adult
CPT/HCPCS: 99213

== ENCOUNTER 2023-05-18 10:24 | Outpatient (REF) | payer OTHER, MEDICARE, SELFPAY ==
[2023-05-18 14:22] LABS: Alanine Aminotransferase 26 U/L (0-31); Anion Gap 10 (12-20); Aspartate Amino Transferase 21 U/L (5-31); Blood Urea Nitrogen 15 mg/dL (9-16); Calcium 9.4 mg/dL (8.4-10.2); Carbon Dioxide 30 mmol/L (22-29); Chloride 104 mmol/L (96-108); Cholesterol 211 mg/dL (<200); Estimated Glomerular Filt Rate > 60; Glucose Fasting 102 mg/dL (60-99); HDL Cholesterol 56 mg/dL (>40); LDL Cholesterol Calculated 125 mg/dL (<100); Sodium 140 mmol/L (135-145); Triglycerides 151 mg/dL (<150); Vitamin D 25-OH Total 84.2 ng/mL (>30)
== END 2023-05-18 10:25 | disposition home or self-care (01) ==
LOC: HO.HMGCLDS 10:24
PROVIDERS: PCP Internal Medicine; Visit Provider Internal Medicine
DX: E66.9 Obesity, unspecified (principal); I10 Essential (primary) hypertension; E78.2 Mixed hyperlipidemia; Z86.79 Personal history of other diseases of the circulatory system
CPT/HCPCS: 36415; 80048; 80061; 82306; 84450; 84460

== ENCOUNTER 2023-05-19 12:24 | Outpatient (AMB) | payer MEDICARE, OTHER, SELFPAY ==
[2023-05-19 12:29] VITALS: BP 120/72; PULSE 60; O2SAT 99; BMI 38.3
--- NOTE | 2023-05-19 12:29 | MHC.PC.OV ---
Vital Signs 05/19/23 12:29 Height 5 ft 6 in Weight 237 lb 8 oz BMI 38.3 BP 120/72 Blood Pressure Location Lt brachial Position Sitting Pulse 60 Pulse Source Pulse Oximeter Pulse Oximetry (%) 99 Oxygen Delivery Method Room Air Intake Visit Reasons: Adult annual exam Intake Note: Pt is here today for her PE, Allergies bactrim Allergy (Unknown, Verified 05/19/23 13:20) swelling, hives contrast dye Allergy (Unknown, Verified 05/19/23 13:20) swelling of ear sulfamethoxazole [From BACTRIM] Allergy (Unknown, Verified 05/19/23 13:20) HIVES trimethoprim [From BACTRIM] Allergy (Unknown, Verified 05/19/23 13:20) HIVES percocet Adverse Reaction (Unknown, Uncoded 05/19/23 13:20) nauseous and shaky Medication List - Last Reconciled 05/19/23 by Karie Oliver MD aspirin (Adult Low Dose Aspirin) 81 mg PO DAILY atenolol 50 mg PO DAILY fluticasone propionate 50 mcg/actuation (Flonase Allergy Relief) 1 spray intranasal DAILY hydrochlorothiazide 12.5 mg PO DAILY pyridoxine (vitamin B6) 50 mg (1/2 x 100 mg) PO DAILY 90 days valacyclovir (Valtrex) 500 mg PO DAILY Tobacco use date assessed: 05/19/23 Fall risk assessment: No Falls in past year Last assessed Fall Risk: 05/19/23 Dental Screening Dental Screen Date: 05/19/23 Did you have a dental problem in the last 6 months where you did not have access to dental care?: No HPI Adult annual exam HPI Details 67-year-old lady here today for physical exam. She has hypertension, currently taking atenolol 50 mg daily and hydrochlorothiazide 12.5 mg daily, with blood pressure stable controlled on present medications. Has been feeling well with no complaints at present time. She gets her Pap and pelvic exam from [facility] with Mary Mai NP, up-to-date with her screening mammogram and had a bone density scan done in 2018 which showed normal findings. [facility] Medical History Obesity (BMI 30-39.9) Benign positional vertigo Bilateral renal stones Left knee pain Numbness of fingers of both hands Sinus bradycardia by electrocardiogram Ureterolithiasis History of atrial fibrillation Pain, foot, right, chronic Tibia and fibula open fracture, right Essential hypertension Mixed dyslipidemia Surgical History History of shoulder surgery History of ankle surgery Family History Father CVD (cardiovascular disease) Maternal Aunt Colon cancer Maternal Uncle Colon cancer Brother No problems noted. Brother No problems noted. Sister No problems noted. Sister No problems noted. Son No problems noted. Daughter No problems noted. Social History Housing: House Alcohol intake: current Patient Tobacco Use Status: Former Tobacco user e-Cigarette/Vaping Use: Never Used service: No Current occupational status: retired Cognitive needs: No Hearing needs: No Vision needs: Yes Questionnaire Thrive Questionnaire Date Thrive assessed: 01/18/23 AUDIT C Alcohol Use Questionnaire (AUDIT-C) 1. How often do you have a drink containing alcohol?: 2-4 times a month 2. How many drinks containing alcohol do you have on a typical day when you are drinking?: 1 or 2 3. How often do you have six or more drinks on one occasion?: Never Total Score: 2 Score Reviewed/Action Taken: Yes MITCHELL-7 AMB Questionnaire MITCHELL-7 Date MITCHELL - 7 assessed: 01/18/23 Source: Developed by Drs. Phillip Lynn, Mirna Avilez, Georgi Gilliam and colleagues, with an educational sunshine from [employer]. Review of Systems Const Denies body aches, Denies fatigue, Denies fever(s), Denies headache(s) and Denies weakness Eyes Reports no additional complaints ENT Denies headache(s), Denies nasal congestion, Denies nasal discharge and Denies sore throat Card Denies chest pain, Denies lightheadedness, Denies palpitations and Denies dyspnea Resp Denies chest congestion, Denies cough, Denies dyspnea and Denies wheezing GI Denies abdominal pain, Denies change in bowel habits and Denies heartburn Reports no additional complaints Musc Reports no additional complaints Skin/Breast Denies breast pain, Denies breast mass, Denies lesions and Denies rash Neuro Denies headache(s) and Denies weakness Psych Reports as per HPI Endo Denies fatigue, Denies polydipsia, Denies polyuria and Denies palpitations Ken/Lymph Reports no additional complaints Aller/Immun Denies seasonal rhinorrhea and Denies wheezing Physical exam (Primary Care) Vital Signs: Last Vital Signs Pulse 60 05/19/23 12:29 BP 120/72 05/19/23 12:29 Pulse Ox 99 05/19/23 12:29 Oxygen Delivery Method Room Air 05/19/23 12:29 BMI result Body Mass Index 38.3 Tobacco/Smoking Status: Tobacco use Status Tobacco use date assessed 05/19/23 12 12:31 Patient Tobacco Use Status Former Tobacco user 05/19/23 12:31 e-Cigarette/Vaping Use Never Used 05/19/23 12:31 Thrive Assessment: Date of Thrive Assessment Date Thrive assessed 01/18/23 12 12:31 Const Other: Obese, Alert oriented x3, no acute distress noted, ambulatory with normal gait Orientation/consciousness: patient oriented x3 HENMT Mouth: Normal oral and palatal mucosa present and moist mucous membranes Eyes General: appearance normal, both eyes and all related structures Neck Other: Supple, no lymphadenopathy, thyroid gland nonpalpable and nontender Resp Auscultation: clear to auscultation bilaterally Cardio Other: S1-S2 present, regular rate and rhythm GI Other: Normal bowel sounds, soft, nontender, no mass palpated General: Yes no CVA tenderness Back/Spine/Pelvis Back: no CVA tenderness Skin General skin exam: no rashes or lesions noted Neuro General: patient oriented x3, gait normal, moves all extremities, Normal light touch and pain sensation, no focal motor deficits and CN's II-XI intact bilaterally Extrem General: Yes full ROM, Yes no joint enlargement, Yes no pedal edema and Yes normal gait Psych Appearance: grossly normal and well kempt Mental Status: mental status grossly normal Speech and movement: Normal speech and movement present Affect: normal affect Attitude: cooperative Thought process: Normal thought process present Thought content: Normal thought content present Results Reviewed Results Reviewed: Name: Terra Martel Age/Sex: 67/F : 1955 Unit#: [id number] Attend Dr: Karie Oliver MD Re05/18/23 Status: DEP REF Location: [facility] Disch: SPEC : [id number] DONNA: 05/18/23-1036 STATUS: COMP REQ : [id number] RECD: 05/18/23-[address]: Karie Oliver MD COMP: 05/18/23-1422 ENTERED: 05/18/23-1036 [facility] DR: ORDERED: Met Prof Fast, AST, ALT, Lipid Panel, Vitamin D 25-OH Test Result Flag Reference Site Sodium 140 135-145 mmol/L Potassium 4.0 3.3-5.1 mmol/L CL 104 96-108 mmol/L CO2 30 H 22-29 mmol/L Gap 10 L 12-20 BUN 15 9-16 mg/dL Creat 0.59 0.5-1.4 mg/dL EGFR > 60 NOTE: For -[place] individuals, multiply the result by 1.210. Chronic Kidney Disease: Estimated GFR < 60 mL/min/1.73m2 Severe Kidney Disease: Estimated GFR < 15 mL/min/1.73m2 FBS 102 H 60-99 mg/dL A fasting glucose from 100-125 mg/dl is considered impaired (pre-diabetes). CA 9.4 8.4-10.2 mg/dL AST (GOT) 21 5-31 U/L ALT (GPT) 26 0-31 U/L Triglyceride 151 H <150 mg/dL Desirable Triglyceride: less than 150 mg/dL Borderline High Triglyceride 150-199 mg/dL High Triglyceride: 200-499 mg/dL Very High Triglyceride: greater than or equal to 5OO mg/dL Cholesterol 211 H <200 mg/dL Desirable Cholesterol: less than 200 mg/dL Borderline High Cholesterol: 200-239 mg/dL High Cholesterol: greater than 239 mg/dL LDL Calculated 125 H <100 mg/dL Desirable LDL: less than 100 mg/dL Near Optimal/Above Optimal LDL: 110-129 mg/dL Borderline High LDL: 130-159 mg/dL High LDL: 160-189 mg/dL Very High LDL: greater than or equal to 190 mg/dL HDL 56 >40 mg/dL Desirable HDL: greater than 40 mg/dL Note: This HDL assay may give artificially low results in patients with liver disease. Vit D 25-OH Tot 84.2 >30 ng/mL Health Based Reference Values* < 20 ng/mL Deficient 20-30 ng/mL Insufficient > 30 ng/mL Sufficient Assessment and Plan Assessment & Plan (1) Annual visit for general adult medical examination with abnormal findings: Code(s): Z00.01 - Encounter for general adult medical examination with abnormal findings Plan: Recent fasting lab results was reviewed with patient, up-to-date with her screening mammogram and cervical cancer screening, goes to [facility] in [place]. She had normal bone density scan done in 2018. Up-to-date with her COVID vaccination and flu shot as well as her 1st dose of shingles vaccine, and Tdap. Reminded to get her 2nd dose of Coke Shingrix and advised to get her Prevnar 20 for prevention of pneumonia. (2) Obesity (BMI 30-39.9): Code(s): E66.9 - Obesity, unspecified Plan: Discussed need to increase activity and weight reduction. Recommended focusing on improving health instead of dieting. Mediterranean diet is a healthy diet that helps, limit food high in fat, sugar, and calories. Eat slowly, pay attention to portion sizes, plan your meals ahead of time, start regular physical activity, at least 150 minutes of moderate intensity exercise, or 90 minutes per week of vigorous exercise. Keeping a food diary, tracking what you eat and your physical activity can help assess what improvements you can make. There are many health problems associated with being overweight/obese, so it is important to improve your diet and exercise. There are medications and surgical options available, but Lifestyle changes are the 1st step. (3) Essential hypertension: Code(s): I10 - Essential (primary) hypertension Plan: Blood pressure at goal of less than 130/80. Continue with current medication. Reinforced importance of following a low sodium diet, getting regular exercise, and lowering stress levels. (4) Mixed dyslipidemia: Code(s): E78.2 - Mixed hyperlipidemia Plan: Reviewed recent fasting lipid profile with patient with mild elevation in her triglycerides . Continue with adherence to low-cholesterol diet and regular exercise, at least 30 minutes 3 to 4 times a week. Advised patient to make healthy food choices, eat more fruits, vegetables, whole grains, wild caught fish and low-fat dairy. Limit amount of meat and fried or fatty food products, as well as processed foods and fast foods. Follow-up scheduled with repeat fasting lipid panel in 5 months. Orders: Orders Alanine Aminotransferase 09/20/23 E66.9 - Obesity, unspecified, E78.2 - Mixed hyperlipidemia, I10 - Essential (primary) hypertension Lipid Panel 09/20/23 E66.9 - Obesity, unspecified, E78.2 - Mixed hyperlipidemia, I10 - Essential (primary) hypertension Basic Metabolic Panel Fasting 09/20/23 E66.9 - Obesity, unspecified, E78.2 - Mixed hyperlipidemia, I10 - Essential (primary) hypertension Aspartate Amino Transferase 09/20/23 E66.9 - Obesity, unspecified, E78.2 - Mixed hyperlipidemia, I10 - Essential (primary) hypertension Coding Level of Care Code Est Pt Prev Care >65y(59433) Diagnoses Annual visit for general adult medical examination with abnormal findings Z00.01 Obesity (BMI 30-39.9) E66.9 Essential hypertension I10 Mixed dyslipidemia E78.2
== END 2023-05-19 13:53 | disposition home or self-care (01) ==
PROVIDERS: Visit Provider Internal Medicine
DX: Z00.01 Encounter for general adult medical examination with abnormal findings (principal); E66.9 Obesity, unspecified; I10 Essential (primary) hypertension; Z68.38 Body mass index [BMI] 38.0-38.9, adult; E78.2 Mixed hyperlipidemia
CPT/HCPCS: 99397

== ENCOUNTER 2023-09-26 13:15 | Outpatient (AMB) | payer MEDICARE, OTHER, SELFPAY ==
--- NOTE | 2023-09-26 13:17 | MHC.PC.OV ---
Vital Signs 09/26/23 13:18 Height 5 ft 6 in Weight 230 lb BMI 37.1 BP 120/70 Blood Pressure Location Lt brachial Position Sitting Pulse 57 Pulse Source Pulse Oximeter Pulse Oximetry (%) 94 Oxygen Delivery Method Room Air Intake Visit Reasons: follow up after labs Intake Note: Patient here for med refills. Allergies bactrim Allergy (Unknown, Verified 09/26/23 22:42) swelling, hives contrast dye Allergy (Unknown, Verified 09/26/23 22:42) swelling of ear sulfamethoxazole [From BACTRIM] Allergy (Unknown, Verified 09/26/23 22:42) HIVES trimethoprim [From BACTRIM] Allergy (Unknown, Verified 09/26/23 22:42) HIVES percocet Adverse Reaction (Unknown, Uncoded 09/26/23 22:42) nauseous and shaky Medication List - Last Reconciled 09/26/23 by Karie Oliver MD aspirin (Adult Low Dose Aspirin) 81 mg PO DAILY atenolol 50 mg PO DAILY fluticasone propionate 50 mcg/actuation (Flonase Allergy Relief) 1 spray intranasal DAILY hydrochlorothiazide 12.5 mg PO DAILY pyridoxine (vitamin B6) 50 mg (1/2 x 100 mg) PO DAILY 90 days valacyclovir (Valtrex) 500 mg PO DAILY Tobacco use date assessed: 09/26/23 Fall risk assessment: No Falls in past year Last assessed Fall Risk: 09/26/23 Dental Screening Dental Screen Date: 09/26/23 Did you have a dental visit in the last 12 months?: Yes Did you have a dental problem in the last 6 months where you did not have access to dental care?: No Was dental information given to patient?: Patient has dentist HPI follow up after labs HPI Details 68-year-old lady here today for follow-up. She has hypertension, and mixed dyslipidemia, compliant with taking her medications, and diet, but admits to not getting much exercise this past winter. Has not yet had her fasting labs done. Needs refills on her medications. Blood pressure has been stable and controlled with atenolol and hydrochlorothiazide. COUNT INCLUDES THE [facility] Medical History (Updated 09/26/23 @ 22:52 by Karie Oliver MD) Obesity (BMI 30-39.9) Benign positional vertigo Bilateral renal stones Sinus bradycardia by electrocardiogram Ureterolithiasis History of atrial fibrillation Pain, foot, right, chronic Tibia and fibula open fracture, right Essential hypertension Mixed dyslipidemia Surgical History History of shoulder surgery History of ankle surgery Family History Father CVD (cardiovascular disease) Maternal Aunt Colon cancer Maternal Uncle Colon cancer Brother No problems noted. Brother No problems noted. Sister No problems noted. Sister No problems noted. Son No problems noted. Daughter No problems noted. Social History Housing: House Alcohol intake: current Patient Tobacco Use Status: Former Tobacco user e-Cigarette/Vaping Use: Never Used service: No Current occupational status: retired Cognitive needs: No Hearing needs: No Vision needs: Yes Questionnaire Thrive Questionnaire Date Thrive assessed: 09/26/23 I am a: Patient What is your living situation today?: I have a steady place to live Within the past 12 months, did the food you bought not last and you didn't have the money to get more?: Never true Within the past 12 months, did you worry whether your food would run out before you got money to buy more?: Never true Do you have trouble paying for medicines?: No Do you have trouble getting transportation to medical appointments?: No Do you have trouble paying your heating and electricity bill?: No Do you have trouble taking care of your child, family member or friend?: No Do you have trouble with day-to-day activities such as bathing, preparing meals, shopping, managing finances, etc.?: No Are you currently unemployed and looking for a job?: No Are you interested in more education?: No THRIVE Score: 0 AUDIT C Alcohol Use Questionnaire (AUDIT-C) 1. How often do you have a drink containing alcohol?: 2-3 times a week 2. How many drinks containing alcohol do you have on a typical day when you are drinking?: 1 or 2 3. How often do you have six or more drinks on one occasion?: Never Total Score: 3 Score Reviewed/Action Taken: No MITCHELL-7 AMB Questionnaire MITCHELL-7 Date MITCHELL - 7 assessed: 01/18/23 Feeling nervous, anxious, or on edge: 0 = Not at all Not being able to stop or control worryin = Not at all Worrying too much about different things: 0 = Not at all Trouble relaxin = Not at all Being so restless that it is hard to sit still: 0 = Not at all Becoming easily annoyed or irritable: 0 = Not at all Feeling afraid as if something awful might happen: 0 = Not at all Total MITCHELL-7 score (0-4 normal; 5-9 mild; 10-14 moderate; 15-21 severe): 0 Source: Developed by Drs. Phillip Lynn, Mirna Avilez, Georgi Gilliam and colleagues, with an educational sunshine from [employer] Review of Systems Const Denies body aches, Denies fatigue and Denies weakness Eyes Reports no additional complaints ENT Reports no additional complaints Card Denies chest pain, Denies lightheadedness, Denies palpitations and Denies dyspnea Resp Denies chest congestion and Denies dyspnea GI Denies abdominal pain, Denies change in bowel habits and Denies heartburn Reports no additional complaints Musc Reports no additional complaints Neuro Denies weakness Endo Denies fatigue, Denies polydipsia, Denies polyuria and Denies palpitations Ken/Lymph Reports no additional complaints Aller/Immun Denies seasonal rhinorrhea Physical exam (Primary Care) Vital Signs: Last Vital Signs Pulse 57 09/26/23 13:18 BP 120/70 09/26/23 13:18 Pulse Ox 94 09/26/23 13:18 Oxygen Delivery Method Room Air 09/26/23 13:18 BMI result Body Mass Index 37.1 Tobacco/Smoking Status: Tobacco use Status Tobacco use date assessed 09/26/23 09/26/23 13:22 Patient Tobacco Use Status Former Tobacco user 09/26/23 13:19 e-Cigarette/Vaping Use Never Used 09/26/23 13:19 Thrive Assessment: Date of Thrive Assessment Date Thrive assessed 01/18/23 09/26/23 13:19 Const Other: Obese, Alert oriented x3, no acute distress noted, ambulatory with normal gait Orientation/consciousness: patient oriented x3 HENMT Mouth: Normal oral and palatal mucosa present and moist mucous membranes Eyes General: appearance normal, both eyes and all related structures Neck Other: Supple, no lymphadenopathy, thyroid gland nonpalpable and nontender Resp Auscultation: clear to auscultation bilaterally Cardio Other: S1-S2 present, regular rate and rhythm GI Other: Normal bowel sounds, soft, nontender, no mass palpated Neuro General: patient oriented x3, gait normal, moves all extremities, Normal light touch and pain sensation, no focal motor deficits and CN's II-XI intact bilaterally Extrem General: Yes full ROM, Yes no joint enlargement, Yes no pedal edema and Yes normal gait Immunizations pneumoc 20-esteban conj-dip cr(PF) 0.5 mL IM syringe Performing Provider: Karie Oliver MD [place] [facility] [place] [facility] Administered by: Giovanni Conde CMA on 09/26/23 13:52 Dose Route Admin Location Dispensed Lot Number Expiration Date NDC Body Rolling Machine Tender 0.5 mL IM Right Deltoid 0.5 mL [id number] 08/08/24 6714-6549-63 [employer] VIS Given Date VIS Provided VIS Publication Date 09/26/23 Single Vaccine 21 Eligibility Eligibility Date Funding Source Not [facility] Eligible 09/26/23 Private Assessment and Plan Assessment & Plan (1) Essential hypertension: Code(s): I10 - Essential (primary) hypertension Plan: Blood pressure stable and controlled on atenolol and hydrochlorothiazide will continue, refill sent. Reinforced importance of following a low-salt diet and getting regular exercise. Reminded patient to get her fasting labs done (2) Mixed dyslipidemia: Code(s): E78.2 - Mixed hyperlipidemia Plan: Stressed importance of following low-cholesterol diet and staying active, at least 30 minutes of cardio exercises 3 to 4 times a week.. Reminded patient to get her fasting labs done (3) Need for pneumococcal 20-valent conjugate vaccination: Code(s): Z23 - Encounter for immunization Plan: Prevnar 20 given today Orders: Orders Pneumococcal 20 Immunization Today Z23 - Encounter for immunization Coding Level of Care Code Est Pt Level 4 (60041) Diagnoses Essential hypertension I10 Mixed dyslipidemia E78.2 Need for pneumococcal 20-valent conjugate vaccination Z23
[2023-09-26 13:18] VITALS: BP 120/70; PULSE 57; O2SAT 94; BMI 37.1
== END 2023-09-26 14:35 | disposition home or self-care (01) ==
PROVIDERS: PCP Internal Medicine; Visit Provider Internal Medicine
DX: I10 Essential (primary) hypertension (principal); E78.2 Mixed hyperlipidemia; Z23 Encounter for immunization
CPT/HCPCS: 90471; 90677; 99214

== ENCOUNTER 2023-09-27 08:41 | Outpatient (REF) | payer MEDICARE, OTHER, SELFPAY ==
[2023-09-27 11:05] LABS: Alanine Aminotransferase 29 U/L (0-31); Anion Gap 15 (12-20); Aspartate Amino Transferase 22 U/L (5-31); Blood Urea Nitrogen 15 mg/dL (9-16); Carbon Dioxide 26 mmol/L (22-29); Chloride 104 mmol/L (96-108); Cholesterol 202 mg/dL (<200); Estimated Glomerular Filt Rate > 60; Glucose Fasting 103 mg/dL (60-99); HDL Cholesterol 58 mg/dL (>40); LDL Cholesterol Calculated 113 mg/dL (<100); Potassium 4.2 mmol/L (3.3-5.1); Sodium 141 mmol/L (135-145); Triglycerides 157 mg/dL (<150)
== END 2023-09-27 08:42 | disposition home or self-care (01) ==
LOC: HO.HMGCLDS 08:41
PROVIDERS: PCP Internal Medicine; Visit Provider Internal Medicine
DX: E66.9 Obesity, unspecified (principal); I10 Essential (primary) hypertension; E78.2 Mixed hyperlipidemia
CPT/HCPCS: 36415; 80048; 80061; 84450; 84460

== ENCOUNTER 2023-11-14 08:15 | Outpatient (AMB) | payer MEDICARE, OTHER, SELFPAY ==
[2023-11-14 08:42] VITALS: BP 134/76; PULSE 82; TEMP 37.2; O2SAT 94; BMI 36.4
--- NOTE | 2023-11-14 08:42 | MHC.OFFWIV ---
Intake Vital Signs 11/14/23 08:42 Height 5 ft 6 in Weight 225 lb 4 oz BMI 36.4 BP 134/76 Blood Pressure Location Rt brachial Position Sitting Pulse 82 Pulse Source Pulse Oximeter Temp 99 F Temp Source Oral Pulse Oximetry (%) 94 Oxygen Delivery Method Room Air Intake Visit Reasons: EP ear pain/congestion fever 103.1 last night Intake Note: pt is here for ear pain and congestion with fever Patient Tobacco Use Status: Former Tobacco user Allergies bactrim Allergy (Unknown, Verified 11/14/23 08:47) swelling, hives contrast dye Allergy (Unknown, Verified 11/14/23 08:47) swelling of ear sulfamethoxazole [From BACTRIM] Allergy (Unknown, Verified 11/14/23 08:47) HIVES trimethoprim [From BACTRIM] Allergy (Unknown, Verified 11/14/23 08:47) HIVES percocet Adverse Reaction (Unknown, Uncoded 09/26/23 22:42) nauseous and shaky Do you need a note to return to daycare/school/sports/work: No HPI HPI Comments History of Present Illness Details Patient is a 68-year-old female complaining of 1 week of worsening head congestion, headaches, a fever of up to 103 last night which resolves with Tylenol, bilateral ear pain. She states she has allergies usually in the spring and early summer and she takes Asya for this daily. However she states her head congestion and sore throat have gotten worse over the last week despite taking her Asya. She denies any shortness of breath, nausea, vomiting or diarrhea. She did not have a COVID test at home and she has a family function this weekend and would like to rule out COVID. [facility]LY [facility] Medical History (Updated 11/14/23 @ 09:12 by Alda Hernandez PA-C) Obesity (BMI 30-39.9) Benign positional vertigo Bilateral renal stones Sinus bradycardia by electrocardiogram Ureterolithiasis History of atrial fibrillation Pain, foot, right, chronic Tibia and fibula open fracture, right Essential hypertension Mixed dyslipidemia Surgical History History of shoulder surgery History of ankle surgery Family History Father CVD (cardiovascular disease) Maternal Aunt Colon cancer Maternal Uncle Colon cancer Brother No problems noted. Brother No problems noted. Sister No problems noted. Sister No problems noted. Son No problems noted. Daughter No problems noted. Social History Housing: House Alcohol intake: current Patient Tobacco Use Status: Former Tobacco user e-Cigarette/Vaping Use: Never Used service: No Current occupational status: retired Cognitive needs: No Hearing needs: No Vision needs: Yes Review of Systems Const All systems reviewed & are unremarkable except as noted in HPI and below Physical Exam Vital Signs: Last Vital Signs Temp 99 F 11/14/23 08:42 Pulse 82 11/14/23 08:42 BP 134/76 11/14/23 08:42 Pulse Ox 94 11/14/23 08:42 Oxygen Delivery Method Room Air 11/14/23 08:42 BMI result Body Mass Index 36.4 Const General: cooperative, healthy appearing, comfortable and no acute distress Orientation/consciousness: patient oriented x3 Limitations: no limitations HEENT Head: Yes normal to inspection Ears: external ears normal, TM normal on the left and TM abnormal (right) wth effusion purulent, erythematous and with loss of landmarks General nose exam: Normal external nose present, Normal nares present and No nasal discharge present Face and sinus: Yes normal facial exam and Yes sinus tenderness Mouth: Normal oral and palatal mucosa present and moist mucous membranes Throat: Yes tonsils normal, Yes uvula midline and Yes posterior oropharynx abnormal (Erythema) Eyes General: appearance normal, both eyes and all related structures Neck Neck: Yes normal visual inspection Resp Effort & Inspection: normal respiratory effort, able to speak in complete sentences, Actively coughing, no respiratory distress, not tachypneic, no tripod positioning and no use of accessory muscles Auscultation: clear to auscultation bilaterally Cardio Rate: regular rate Rhythm: regular rhythm Heart sounds: normal S1 and S2 Skin General skin exam: no rashes or lesions noted Neuro General: patient oriented x3 Extrem General: Yes normal to inspection and Yes no clubbing, cyanosis or edema Assessment & Plan Assessment & Plan (1) Otitis media of right ear: Code(s): H66.91 - Otitis media, unspecified, right ear Qualifiers: Chronicity: acute Otitis media type: mucoid Qualified Code(s): H65.191 - Other acute nonsuppurative otitis media, right ear (2) Acute sinusitis: Code(s): J01.90 - Acute sinusitis, unspecified Qualifiers: Recurrence: non-recurrent Sinusitis location: unspecified location Qualified Code(s): J01.90 - Acute sinusitis, unspecified Plan: RX sent to pharmacy, please follow-up with your PCP if no resolution in symptoms. We will call you if the COVID test is positive. Plan see above Coding Level of Care Code Est Pt Level 3 (17013) Diagnoses Acute mucoid otitis media of right ear H65.191 Chronicity: acute Otitis media type: mucoid Acute non-recurrent sinusitis, unspecified location J01.90 Recurrence: non-recurrent Sinusitis location: unspecified location
== END 2023-11-14 09:17 | disposition home or self-care (01) ==
PROVIDERS: PCP Internal Medicine; Visit Provider Physician Assistant
DX: H65.191 Other acute nonsuppurative otitis media, right ear (principal); J01.90 Acute sinusitis, unspecified
CPT/HCPCS: 99213

== ENCOUNTER 2023-11-14 09:01 | Outpatient (REF) | payer MEDICARE, OTHER, SELFPAY | END 2023-11-14 09:02 | disposition home or self-care (01) | LOC: HO.LAB 09:01 | PROVIDERS: Visit Provider Physician Assistant | DX: Z13.89 Encounter for screening for other disorder (principal) ==

== ENCOUNTER 2023-11-14 11:42 | Outpatient (REF) | payer MEDICARE, OTHER, SELFPAY ==
[2023-11-14 12:56] LABS: Influenza A PCR NEGATIVE (Negative); Influenza B PCR NEGATIVE (Negative); Resp Syncy Virus RNA Qual PCR NEGATIVE (Negative); SARS COV2 PCR INHOUSE POSITIVE (Negative)
== END 2023-11-14 11:43 | disposition home or self-care (01) ==
LOC: HO.LNP 11:42
PROVIDERS: Visit Provider Physician Assistant
DX: J06.9 Acute upper respiratory infection, unspecified (principal)
CPT/HCPCS: 0241U

== ENCOUNTER 2023-11-28 08:28 | Outpatient (REF) | payer MEDICARE, OTHER, SELFPAY ==
--- NOTE | ~2023-11-28 | US_ITS ---
EXAMINATION: US RETROPERITONEAL LIMITED (RENAL ONLY) CLINICAL INFORMATION: Calculus of kidney. COMPARISON: Ultrasound renal 11/25/2022 and 04/08/2022. CT abdomen and pelvis 08/24/2021. TECHNIQUE: Real-time imaging of the kidneys. Limited visualization due to bowel gas. FINDINGS: RIGHT KIDNEY: 12.9 x 5.3 x 5.1 cm (SAG x AP x TRV). No hydronephrosis. No renal calculi. Renal cortical thickness is normal. Limited visualization. LEFT KIDNEY: 13.0 x 5.1 x 5.6 cm (SAG x AP x TRV). No hydronephrosis. No renal calculi. Renal cortical thickness is normal. Limited visualization. US/US renal BI IMPRESSION: No hydronephrosis. No renal calculi.
== END 2023-11-28 08:29 | disposition home or self-care (01) ==
LOC: HO.HMGCX 08:28
PROVIDERS: PCP Internal Medicine; Visit Provider Nurse Practitioner Family
DX: N20.0 Calculus of kidney (principal)
CPT/HCPCS: 76775

== ENCOUNTER 2023-12-19 09:00 | Outpatient (AMB) | payer MEDICARE, OTHER, SELFPAY ==
[2023-12-19 09:28] VITALS: BP 130/70; PULSE 78; TEMP 36.8; O2SAT 98
--- NOTE | 2023-12-19 09:28 | MHC.OFFWIV ---
Intake Vital Signs 12/19/23 09:28 Height 5 ft 6 in BP 130/70 Blood Pressure Location Rt brachial Position Sitting Pulse 78 Pulse Source Pulse Oximeter Temp 98.2 F Temp Source Temporal Artery Scan Pulse Oximetry (%) 98 Oxygen Delivery Method Room Air Intake Visit Reasons: EP Sinus infection 1 month/not better Intake Note: pt is here for sinus infection for 1 month Patient Tobacco Use Status: Former Tobacco user Allergies bactrim Allergy (Unknown, Verified 12/19/23 09:29) swelling, hives contrast dye Allergy (Unknown, Verified 12/19/23 09:29) swelling of ear sulfamethoxazole [From BACTRIM] Allergy (Unknown, Verified 12/19/23 09:29) HIVES trimethoprim [From BACTRIM] Allergy (Unknown, Verified 12/19/23 09:29) HIVES percocet Adverse Reaction (Unknown, Uncoded 09/26/23 22:42) nauseous and shaky Do you need a note to return to daycare/school/sports/work: Yes HPI EP Sinus infection 1 month/not better HPI Details This note is constructed using voice recognition software. While every effort has been made to ensure accuracy, pediatric sports medicine specialist errors may have been included. The patient is a 68 year old female who presents to the clinic today with concern for ongoing symptoms following sinus infection. She was last seen in the walk-in clinic 1 month ago and treated with Augmentin. At that time she was also positive for COVID and treated for COVID. Since then she has not had complete resolution. She has also chronic sinus person in terms of allergies triggering this. She does take her allergy medication including Flonase daily, she is also using steam to help her symptoms along. She is taking Tylenol for the headache. She notes that the headache is primarily frontal region and also in her occipital region. When she does all her treatments at home that do help reduce the headache, however the headache seems to come back. She denies dizziness, lightheadedness, cough, shortness of breath, fever, chills, head injury, confusion. [facility] Medical History (Updated 11/14/23 @ 09:12 by Alda Hernandez PA-C) Obesity (BMI 30-39.9) Benign positional vertigo Bilateral renal stones Sinus bradycardia by electrocardiogram Ureterolithiasis History of atrial fibrillation Pain, foot, right, chronic Tibia and fibula open fracture, right Essential hypertension Mixed dyslipidemia Surgical History History of shoulder surgery History of ankle surgery Family History Father CVD (cardiovascular disease) Maternal Aunt Colon cancer Maternal Uncle Colon cancer Brother No problems noted. Brother No problems noted. Sister No problems noted. Sister No problems noted. Son No problems noted. Daughter No problems noted. Social History Housing: House Alcohol intake: current Patient Tobacco Use Status: Former Tobacco user e-Cigarette/Vaping Use: Never Used service: No Current occupational status: retired Cognitive needs: No Hearing needs: No Vision needs: Yes Review of Systems Const All systems reviewed & are unremarkable except as noted in HPI and below Physical Exam Vital Signs: Last Vital Signs Temp 98.2 F 12/19/23 09:28 Pulse 78 12/19/23 09:28 BP 130/70 12/19/23 09:28 Pulse Ox 98 12/19/23 09:28 Oxygen Delivery Method Room Air 12/19/23 09:28 Const General: cooperative, healthy appearing, comfortable and no acute distress Orientation/consciousness: patient oriented x3 Limitations: no limitations HEENT Head: Yes normal to inspection Ears: hearing grossly normal bilaterally, external ears normal and TM abnormal retracted bilateral General nose exam: Normal external nose present, Normal nares present and No nasal discharge present Face and sinus: Yes normal facial exam and Yes sinus tenderness (Frontal bilaterally) Mouth: Normal oral and palatal mucosa present and moist mucous membranes Throat: Yes tonsils normal, Yes uvula midline and Yes posterior oropharynx abnormal (Erythema) Eyes General: appearance normal, both eyes and all related structures Neck Neck: Yes normal visual inspection Resp Effort & Inspection: normal respiratory effort, able to speak in complete sentences, Actively coughing, no respiratory distress, not tachypneic, no tripod positioning and no use of accessory muscles Auscultation: clear to auscultation bilaterally Cardio Jugular venous distension: no JVD Rate: regular rate Rhythm: regular rhythm Heart sounds: S1 normal heart sound present, S2 normal heart sound present, no click, no gallops, no murmurs and no rubs Skin General skin exam: no rashes or lesions noted, elasticity normal and turgor normal Neuro General: patient oriented x3 Extrem General: Yes normal to inspection and Yes no clubbing, cyanosis or edema Assessment & Plan Assessment & Plan (1) Acute sinusitis: Code(s): J01.90 - Acute sinusitis, unspecified Qualifiers: Sinusitis location: unspecified location Recurrence: non-recurrent Qualified Code(s): J01.90 - Acute sinusitis, unspecified Plan: Given recent treatment, and lack of response we will try alternate antimicrobial therapy. Advised patient to perform sinus rinse use of nasal steroids, and antihistamines as needed. Continue with Tylenol or Motrin for headache relief. Follow up with primary care with lack of resolution or worsening, as she may benefit from referral to ear nose and throat with ongoing symptoms. Additionally discussed the potential that this could be ongoing effects from had recently having COVID. Reviewed [id number] supportive measures that she may instill. Plan See above for full details and plan. Medications: New doxycycline hyclate 100 mg PO BID 7 days 14 caps 0RF Coding Level of Care Code Est Pt Level 3 (83449) Diagnoses Acute non-recurrent sinusitis, unspecified location J01.90 Sinusitis location: unspecified location Recurrence: non-recurrent
== END 2023-12-19 10:09 | disposition home or self-care (01) ==
PROVIDERS: PCP Internal Medicine; Visit Provider Registered Nurse
DX: J01.90 Acute sinusitis, unspecified (principal)
CPT/HCPCS: 99213

== ENCOUNTER 2023-12-20 08:55 | Outpatient (AMB) | payer MEDICARE, OTHER, SELFPAY ==
--- NOTE | 2023-12-20 08:57 | A.OFFVIS_ITS ---
Intake Visit Reasons: 1y/US(set) Intake Note: Patient is present for 1y follow up/US Urology Medications: Vitamin B6 Blood Thinner: aspirin Class B Truck Driver Required: No Accompanied by: Self / Same As Patient Allergies bactrim Allergy (Unknown, Verified 12/20/23 10:29) swelling, hives contrast dye Allergy (Unknown, Verified 12/20/23 10:29) swelling of ear sulfamethoxazole [From BACTRIM] Allergy (Unknown, Verified 12/20/23 10:29) HIVES trimethoprim [From BACTRIM] Allergy (Unknown, Verified 12/20/23 10:29) HIVES percocet Adverse Reaction (Unknown, Uncoded 12/20/23 10:29) nauseous and shaky Medication List - Last Reconciled 12/20/23 by IZAIAH Lopez aspirin (Adult Low Dose Aspirin) 81 mg PO DAILY atenolol 50 mg PO DAILY doxycycline hyclate 100 mg PO BID 7 days fluticasone propionate 50 mcg/actuation (Flonase Allergy Relief) 1 spray intranasal DAILY hydrochlorothiazide 12.5 mg PO DAILY lorazepam 0.5 mg PO DAILY PRN valacyclovir (Valtrex) 500 mg PO DAILY HPI Comments Details: Terra Davidson is a pleasant 68 year old female patient of Dr Oliver. She has a past medical history of obesity, benign positional vertigo, nephrolithiasis, AFib, hypertension, and mixed dyslipidemia. She has a past medical history of renal stones, AFib, hypertension, and mixed dyslipidemia. She presents to the office today for a follow up regarding her nephrolithaisis. When asked she reports to be doing well. She states she continues to attempt to drink plenty of water daily. She reports drinking approximately 80 oz of water a day. Patient denies any urinary issues or concerns at this time. Recent renal imaging reviewed with the patient today unremarkable examination. In office urinalysis results reviewed with the patient today. Patient reports compliance with Vitamin B6. She discusses unfortunately missing her recent family reunion as she had COVID as well as a sinus infection. She reports to currently be on doxycycline for a sinus infection. Sectioned she otherwise offers no other issues or concerns. [facility] Medical History Obesity (BMI 30-39.9) Benign positional vertigo Bilateral renal stones Sinus bradycardia by electrocardiogram Ureterolithiasis History of atrial fibrillation Pain, foot, right, chronic Tibia and fibula open fracture, right Essential hypertension Mixed dyslipidemia Surgical History History of shoulder surgery History of ankle surgery Family History Father CVD (cardiovascular disease) Maternal Aunt Colon cancer Maternal Uncle Colon cancer Brother No problems noted. Brother No problems noted. Sister No problems noted. Sister No problems noted. Son No problems noted. Daughter No problems noted. Social History Housing: House Alcohol intake: current Patient Tobacco Use Status: Former Tobacco user e-Cigarette/Vaping Use: Never Used service: No Current occupational status: retired Cognitive needs: No Hearing needs: No Vision needs: Yes Review of Systems Const All systems reviewed & are unremarkable except as noted in HPI and below Physical Exam Const General: cooperative, healthy appearing, comfortable, no acute distress, well developed, alert and awake Nutritional Appearance: overweight Orientation/consciousness: patient oriented x3 Limitations: no limitations HEENT Head: Yes normal to inspection, Yes normocephalic and Yes atraumatic Eyes General: appearance normal, both eyes and all related structures Neck Neck: Yes normal visual inspection and Yes trachea midline Chest Chest palpation & inspection: normal inspection of the chest Resp Effort & Inspection: normal respiratory effort and able to speak in complete sentences Cardio Rate: regular rate GI Inspection: Yes normal to inspection General: Yes no CVA tenderness Back/Spine/Pelvis Back: no CVA tenderness Neuro General: patient oriented x3 Extrem General: Yes normal to inspection Psych Appearance: grossly normal and well kempt Mental Status: mental status grossly normal Speech and movement: Normal speech and movement present and Clear speech present Affect: normal affect Attitude: cooperative Thought process: Normal thought process present Thought content: Normal thought content present Insight: Fair insight present (Psych) Judgement: Fair judgement present (Psych) Results AMB Urinalysis, Automated UA Leukoctes 0 Alexia/uL Last Edit by EBONI Boone on 12/20/23 09:11 UA Nitrite Negative Last Edit by EBONI Boone on 12/20/23 09:11 UA Urobilinogen 0.2 mg/dL Last Edit by EBONI Boone on 12/20/23 09:1 1 UA Protein 15 mg/dL Last Edit by EBONI Boone on 12/20/23 09:11 UA pH 6.0 Last Edit by EBONI Boone on 12/20/23 09:11 UA Blood 0 Aaron/uL Last Edit by EBONI Boone on 12/20/23 09:11 UA Specific [place] 1.015 Last Edit by Mindi Zavala CCM on 12/20/23 09: 11 UA Ketone Negative Last Edit by EBONI Boone on 12/20/23 09:11 UA Bilirubin 0 mg/dL Last Edit by EBONI Boone on 12/20/23 09:11 UA Glucose 0 mg/dL Last Edit by [facility]ala [facility] 12/20/23 09:11 Results Reviewed Results Reviewed: Laboratory Last Values Urine pH (Auto) 6.0 12/20/23 09:[address] [place] (Auto) 1.015 12/20/23 09:11 Urine Protein (Auto) 15 mg/dL 12/20/23 09:11 Glucose (UA)(Auto) 0 mg/dL 12/20/23 09:11 Urine Ketones (Auto) Negative 12/20/23 09:11 Urine Blood (Auto) 0 Aaron/uL 12/20/23 09:11 Urine Nitrite (Auto) Negative 12/20/23 09:11 Urine Bilirubin (Auto) 0 mg/dL 12/20/23 09:11 Urine Urobilinogen (Auto) 0.2 mg/dL 12/20/23 09:11 Leukocyte Esterase (Auto) 0 Alexia/uL 12/20/23 09:11 Date of Service: 11/28/23 EXAMINATION: US RETROPERITONEAL LIMITED (RENAL ONLY) FINDINGS: RIGHT KIDNEY: 12.9 x 5.3 x 5.1 cm (SAG x AP x TRV). No hydronephrosis. No renal calculi. Renal cortical thickness is normal. Limited visualization. LEFT KIDNEY: 13.0 x 5.1 x 5.6 cm (SAG x AP x TRV). No hydronephrosis. No renal calculi. Renal cortical thickness is normal. Limited visualization. IMPRESSION: No hydronephrosis. No renal calculi. Assessment & Plan Assessment & Plan (1) Bilateral renal stones: Code(s): N20.0 - Calculus of kidney Category: Medical Plan In office urinalysis results reviewed with the patient today; as noted above Recent renal imaging results reviewed with the patient today; as noted above Educated, encouraged, instructed on the importance of drinking plenty of water daily. Continue adding 1 oz of lemon juice to water daily. Stop vitamin B6. Patient denies any urological issues or concerns at this time Renal ultrasound in 1 year Follow-up in 1 year with imaging to be completed prior; or sooner with any issues, concerns, and or questions. Orders: Orders AMB Urinalysis Automated Today Z13.9 - Encounter for screening, unspecified US renal BI 1 Year N20.0 - Calculus of kidney Patient Instructions: The patient had an opportunity to ask questions regarding the treatment plan. All questions were answered. Physical exam, labs, and imaging were discussed and reviewed in detail. As well as risks, benefits, and discussion of treatment choices. No major barriers to understanding were identified. The patient expressed understanding and agreement with the above treatment plan. The patient was made aware they should contact our office by phone for worsening of their current condition, the appearance of new symptoms, or with any questions or concerns. Compliance is encouraged with any medications and follow up testing that is ordered. It is a privilege to be allowed the opportunity to participate in? your urological care.? Again, if you have any questions or concerns If you have any questions or concerns please do not hesitate to contact me. The office is [phone]. This note is constructed using voice recognition software. While every effort has been made to ensure accuracy timber girdler errors may have been included. Yours sincerely, IZAIAH Lopez Coding Level of Care Code Est Pt Level 3 (58142) Complex EM visit Add On G2211 Diagnoses Bilateral renal stones N20.0
== END 2023-12-20 09:29 | disposition home or self-care (01) ==
PROVIDERS: PCP Internal Medicine; Visit Provider Nurse Practitioner Family
DX: N20.0 Calculus of kidney (principal); Z13.9 Encounter for screening, unspecified
CPT/HCPCS: 99213; G2211

== ENCOUNTER → 2023-12-20 08:55 | Outpatient (BNVA) | payer MEDICARE, OTHER, SELFPAY | PROVIDERS: PCP Internal Medicine; Visit Provider Nurse Practitioner Family | DX: N20.0 Calculus of kidney (principal) | CPT/HCPCS: 81003; 99212 ==

== ENCOUNTER 2024-03-13 08:01 | Outpatient (AMB) | payer MEDICARE, OTHER, SELFPAY ==
--- NOTE | 2024-03-13 08:13 | AM.OFFWIN_ITS ---
Intake Vital Signs 03/13/24 08:18 Weight 225 lb BP 124/80 Blood Pressure Location Rt brachial Position Sitting Pulse 60 Pulse Source Pulse Oximeter Pulse Oximetry (%) 98 Oxygen Delivery Method Room Air Intake Visit Reasons: EP-rt hip pain, lt wrist ganglion Intake Note: Patient here for right hip pain which has been going on for about 2 months. she would also like to address ganglion on left wrist and is having pain that radiates into the thumb. Patient Tobacco Use Status: Former Tobacco user Allergies bactrim Allergy (Unknown, Verified 03/13/24 08:17) swelling, hives contrast dye Allergy (Unknown, Verified 03/13/24 08:17) swelling of ear sulfamethoxazole [From BACTRIM] Allergy (Unknown, Verified 03/13/24 08:17) HIVES trimethoprim [From BACTRIM] Allergy (Unknown, Verified 03/13/24 08:17) HIVES percocet Adverse Reaction (Unknown, Uncoded 03/13/24 08:17) nauseous and shaky Do you need a note to return to daycare/school/sports/work: No HPI EP-rt hip pain, lt wrist ganglion HPI Details This note is constructed using voice recognition software. While every effort has been made to ensure accuracy, director of security errors may have been included. The patient is a 68 year old female who presents to the clinic today with right hip pain and left wrist ganglion for the past several months. She notes that she has had the ganglion on the left dorsal wrist for several months, and in the past month she has had some tenderness, particularly when she puts pressure on the wrist. She denies numbness or tingling. She has done nothing to intervene. She wants the right hip has been painful with the for the past several months as well. 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 She takes Tylenol and Motrin occasionally, does apply heat at times. She also has been doing some stretching and some gentle yoga, all of which seemed to help the symptoms a little bit. The pain is worse after prolonged activity. There is no numbness or tingling in the leg. She has had no injury, trauma, or surgery to the area. She has had surgery to the right ankle, but nothing to the hip. [facility] Medical History Obesity (BMI 30-39.9) Benign positional vertigo Bilateral renal stones Sinus bradycardia by electrocardiogram Ureterolithiasis History of atrial fibrillation Pain, foot, right, chronic Tibia and fibula open fracture, right Essential hypertension Mixed dyslipidemia Surgical History History of shoulder surgery History of ankle surgery Family History Father CVD (cardiovascular disease) Maternal Aunt Colon cancer Maternal Uncle Colon cancer Brother No problems noted. Brother No problems noted. Sister No problems noted. Sister No problems noted. Son No problems noted. Daughter No problems noted. Social History Housing: House Alcohol intake: current Patient Tobacco Use Status: Former Tobacco user e-Cigarette/Vaping Use: Never Used service: No Current occupational status: retired Cognitive needs: No Hearing needs: No Vision needs: Yes Review of Systems Const All systems reviewed & are unremarkable except as noted in HPI and below Physical Exam Vital Signs: Last Vital Signs Pulse 60 03/13/24 08:18 BP 124/80 03/13/24 08:18 Pulse Ox 98 03/13/24 08:18 Oxygen Delivery Method Room Air 03/13/24 08:18 Const General: cooperative, healthy appearing, comfortable, no acute distress and well developed Orientation/consciousness: patient oriented x3 Limitations: no limitations Resp Effort & Inspection: normal respiratory effort and able to speak in complete sentences Skin General skin exam: no rashes or lesions noted Neuro General: patient oriented x3 Extrem Other: Right hip normal range of motion, normal abduction and adduction, normal squat. No area tender to palpation. No erythema, edema, or ecchymosis. Distal neurovascular exam intact. Negative SLR. Strength 5/5. General: Yes normal to inspection Assessment & Plan Assessment & Plan (1) Ganglion cyst: Code(s): M67.40 - Ganglion, unspecified site Plan: Reviewed with patient likelihood that this may resolve on its own, and does not likely require intervention given low-level symptoms. Also reviewed that in the case of aspiration, these are very likely to grow back. Advised patient to follow up should symptoms worsen and to continue to monitor this. (2) Right hip pain: Code(s): M25.551 - Pain in right hip Plan: Given chronicity of pain, x-ray ordered to evaluate for contributing factors such as osteoarthritis. Advised patient to continue with heat/ice, NSAIDs, , muscle rubs, and follow up with PCP as needed with worsening or failure to resolve. Plan See above for full details and plan. Orders: Orders XR hip RT min 2V Today M25.551 - Pain in right hip Coding Level of Care Code Est Pt Level 3 (73983) Diagnoses Ganglion cyst M67.40 Right hip pain M25.551
[2024-03-13 08:18] VITALS: BP 124/80; PULSE 60; O2SAT 98
== END 2024-03-13 08:42 | disposition home or self-care (01) ==
PROVIDERS: PCP Internal Medicine; Visit Provider Registered Nurse
DX: M67.40 Ganglion, unspecified site (principal); M25.551 Pain in right hip

== ENCOUNTER → 2024-03-13 08:01 | Outpatient (BNVA) | payer MEDICARE, OTHER, SELFPAY | PROVIDERS: PCP Internal Medicine; Visit Provider Registered Nurse ==

== ENCOUNTER 2024-03-13 08:39 | Outpatient (REF) | payer MEDICARE, OTHER, SELFPAY ==
--- NOTE | ~2024-03-13 | XR_ITS ---
EXAMINATION: XR HIP, RIGHT CLINICAL INFORMATION: Pain COMPARISON: None available. TECHNIQUE: Two views of the right hip. FINDINGS: No acute cortical disruption or malalignment. No lytic or blastic lesions. Sclerosis, right sacroiliac joint. Facet joint hypertrophy, L5-S1. Degenerative changes, symphysis pubis. XR/XR hip RT min 2V IMPRESSION: No acute fracture or dislocation. Electronically signed by: Josué Ross MD 03/13/2024 09:06 AM EDT
== END 2024-03-13 08:40 | disposition home or self-care (01) ==
LOC: HO.HMGCX 08:39
PROVIDERS: PCP Internal Medicine; Visit Provider Registered Nurse
DX: M67.40 Ganglion, unspecified site (principal); M25.551 Pain in right hip
CPT/HCPCS: 73502; 99212

== ENCOUNTER → 2024-03-13 08:49 | Outpatient (BNV) | payer MEDICARE, OTHER, SELFPAY | PROVIDERS: PCP Internal Medicine; Visit Provider Radiology Diagnostic Radiology | DX: M25.551 Pain in right hip (principal) | CPT/HCPCS: 73502 ==

== ENCOUNTER 2024-04-17 08:28 | Day surgery (SDC) | payer MEDICARE, OTHER, SELFPAY ==
[2024-04-15 09:53] VITALS: BMI 38.1
[2024-04-17 08:39] VITALS: BMI 38.3
[2024-04-17] MEDS: Lactated Ringers 1,000 ML 100 ML IVCONT (08:51)
[2024-04-17 09:05] VITALS: BP 166/75; PULSE 50; RESP 18; TEMP 36.7; O2SAT 98
--- NOTE | 2024-04-17 09:05 | P.CONAN_ITS ---
Documented by User: Vaishnavi Espino NP 04/16/24 09:44 HPI - Anesthesia Eval Consult details Narrative: 68yo F for Colonoscopy ERBE Jet 2 PMFSH Active Problems Active Problems: All Active Problems Acute sinusitis (Acute) Sinusitis (Acute) Otitis media of right ear (Acute) Obesity (BMI 30-39.9) (Acute) Bilateral renal stones (Acute) Essential hypertension (Acute) Mixed dyslipidemia (Acute) Past Medical History Medical History Obesity (BMI 30-39.9) Benign positional vertigo Bilateral renal stones Sinus bradycardia by electrocardiogram Ureterolithiasis History of atrial fibrillation Pain, foot, right, chronic Tibia and fibula open fracture, right Essential hypertension Mixed dyslipidemia Family History Family History Father CVD (cardiovascular disease) Maternal Aunt Colon cancer Maternal Uncle Colon cancer Brother No problems noted. Brother No problems noted. Sister No problems noted. Sister No problems noted. Son No problems noted. Daughter No problems noted. Surgical History Surgical History (Updated 04/17/24 @ 08:44 by Myrtle Cervantes RN) Hx of colonoscopy History of shoulder surgery History of ankle surgery Social History Social History (Updated 04/15/24 @ 09:55 by Doreen Witt RN) Housing: House Are you a primary career development specialist to a significant other at home: No Do you presently have visiting nurse or other home services: No Alcohol intake: current Patient Tobacco Use Status: Former Tobacco user e-Cigarette/Vaping Use: Never Used Have you been hit, kicked, punched, or otherwise hurt by someone within the past year? If so, by whom?: No Are you DNR?: No Advance Directives: No Advance Directives Information Provided: Yes Recently lost weight without trying: No Nutrition Risks: No Nutritional Risk service: No Current occupational status: retired Cognitive needs: No Hearing needs: No Vision needs: Yes Meds Allergies Allergy/AdvReac Type Severity Reaction Status Date / Time bactrim Allergy Intermediate swelling, Verified 04/17/24 08:45 hives contrast dye Allergy Intermediate swelling Verified 04/17/24 08:45 of ear oxycodone Allergy Intermediate shaky/nause Verified 04/17/24 08:45 a sulfamethoxazole Allergy Intermediate HIVES Verified 04/17/24 08:45 [From BACTRIM] trimethoprim [From BACTRIM] Allergy Intermediate HIVES Verified 04/17/24 08:45 Home Medications ?Medication ?Instructions ?Recorded ?Confirmed ?Last Taken ?Type aspirin 81 mg tablet,delayed 81 mg PO DAILY 08/26/21 04/15/24 04/09/24 History release (Adult Low Dose Aspirin) valacyclovir 500 mg tablet 500 mg PO DAILY 01/18/23 04/15/24 Unknown History (Valtrex) Exam Height,Weight and Vital Signs: Height 5 ft 5 in Weight 103.873 kg Assessment and Plan Assessment Anesthesia Assessment: Chart Reviewed Documented by User: Renuka Beltran DO 04/17/24 09:20 [facility] Past Medical History Medical History Obesity (BMI 30-39.9) Benign positional vertigo Bilateral renal stones Sinus bradycardia by electrocardiogram Ureterolithiasis History of atrial fibrillation Pain, foot, right, chronic Tibia and fibula open fracture, right Essential hypertension Mixed dyslipidemia Family History Family History Father CVD (cardiovascular disease) Maternal Aunt Colon cancer Maternal Uncle Colon cancer Brother No problems noted. Brother No problems noted. Sister No problems noted. Sister No problems noted. Son No problems noted. Daughter No problems noted. Family history of problems with anesthesia: No Surgical History Surgical History (Updated 04/17/24 @ 08:44 by Myrtle Cervantes RN) Hx of colonoscopy History of shoulder surgery History of ankle surgery History of Problems with Anesthesia: No Social History Social History (Updated 04/15/24 @ 09:55 by Doreen Witt RN) Housing: House Are you a primary career development specialist to a significant other at home: No Do you presently have visiting nurse or other home services: No Alcohol intake: current Patient Tobacco Use Status: Former Tobacco user e-Cigarette/Vaping Use: Never Used Have you been hit, kicked, punched, or otherwise hurt by someone within the past year? If so, by whom?: No Are you DNR?: No Advance Directives: No Advance Directives Information Provided: Yes Recently lost weight without trying: No Nutrition Risks: No Nutritional Risk service: No Current occupational status: retired Cognitive needs: No Hearing needs: No Vision needs: Yes Meds Allergies Allergy/AdvReac Type Severity Reaction Status Date / Time bactrim Allergy Intermediate swelling, Verified 04/17/24 08:45 hives contrast dye Allergy Intermediate swelling Verified 04/17/24 08:45 of ear oxycodone Allergy Intermediate shaky/nause Verified 04/17/24 08:45 a sulfamethoxazole Allergy Intermediate HIVES Verified 04/17/24 08:45 [From BACTRIM] trimethoprim [From BACTRIM] Allergy Intermediate HIVES Verified 04/17/24 08:45 Home Medications ?Medication ?Instructions ?Recorded ?Confirmed ?Last Taken ?Type aspirin 81 mg tablet,delayed 81 mg PO DAILY 08/26/21 04/15/24 04/09/24 History release (Adult Low Dose Aspirin) valacyclovir 500 mg tablet 500 mg PO DAILY 01/18/23 04/15/24 Unknown History (Valtrex) Exam Exam Date and Time: 04/17/24 09 Height,Weight and Vital Signs: Height 5 ft 5 in Weight 103.873 kg Vital Signs Temperature 98.1 F 04/17/24 09:05 Pulse Rate 50 04/17/24 09:05 Respiratory Rate 18 04/17/24 09:05 Blood Pressure 166/75 H 04/17/24 09:05 Pulse Oximetry 98 04/17/24 09:05 Oxygen Delivery Method Room Air 04/17/24 09:05 Temperature 98.1 F 04/17/24 09:05 Pulse Rate 50 04/17/24 09:05 Respiratory Rate 18 04/17/24 09:05 Blood Pressure 166/75 H 04/17/24 09:05 Pulse Oximetry 98 04/17/24 09:05 Oxygen Delivery Method Room Air 04/17/24 09:05 Airway Mallampati Class: III TM Dist: >3cm Neck ROM: Full Loose/Missing/Broken Teeth: Yes (chipped right front tooth, otherwise no loose teeth) Heart: S1S2 Lungs: CTAB Assessment and Plan Assessment Anesthesia Assessment: Anesthesia Plan Discussed and Chart Reviewed Final Anesthetic Review Family History of Problems with Anesthesia: No History of Problems with Anesthesia: No NPO: Yes ASA Class: II Final Preanesthetic Review: No Changes in Pt Med Stat, Meds/Allgs Chart Reviewed, Consent Obtained/Reviewed and Anes Risks/Benef Reviewed Patient Risk: Low Procedure Risk: Low Anesthetic Plan Anesthetic Plan: MAC: and Agree w/ Assess. and Plan Disposition: Standard PACU
[2024-04-17 10:51] VITALS: BP 110/63; PULSE 55; RESP 16; TEMP 36.1; O2SAT 97
--- NOTE | 2024-04-17 10:55 | PM.OP ---
Brief Operative Note Date of Service: 04/17/24 Pre-op diagnosis: Screening Post-op diagnosis: other (Diverticulosis) Procedure: Colonoscopy to the cecum and TI Surgeon: Phillip Hernandez MD Anesthesia: MAC Was an Pipe Processor used for this Procedure?: No Estimated blood loss (mL): 0 Pathology: none sent Condition: stable Disposition: PACU
[2024-04-17 11:05] VITALS: BP 135/81; PULSE 51; RESP 16; TEMP 36.6; O2SAT 98
--- NOTE | 2024-04-17 11:10 | OP_ITS ---
DATE OF SERVICE: 04/17/2024 SURGEON: Phillip Hernandez MD INDICATIONS: The patient presents for evaluation of colorectal cancer screening and family history of colon cancer. Full consent has been obtained from her for this, including risks of bleeding and perforation. PREOPERATIVE DIAGNOSIS: POSTOPERATIVE DIAGNOSIS: PROCEDURE PERFORMED: Colonoscopy to cecum and terminal ileum. ESTIMATED BLOOD LOSS: COMPLICATIONS: ANESTHESIA: Monitored anesthesia care. ASSISTANTS: SPECIMENS: PREOPERATIVE DIAGNOSES: Colorectal cancer screening and family history of colon cancer. POSTOPERATIVE DIAGNOSES: Colorectal cancer screening, family history of colon cancer, diverticulosis, and internal hemorrhoids. DESCRIPTION OF PROCEDURE: The patient was placed in the left lateral decubitus position. The digital rectal exam revealed no abnormalities. The Olympus video pediatric colonoscope was then entered into the rectum and advanced easily to the cecum. Once in the cecum, I did identify normal-appearing cecal pouch with appendiceal orifice and a normal-appearing ileocecal valve. The terminal ileum was cannulated and appeared normal. The scope was withdrawn back in the colon. The entire cecum and ileocecal valve appeared normal. The scope was slowly withdrawn assessing all mucosal surfaces carefully. Preparation was excellent. I did not visualize any sign of polyps, colitis, nor angiodysplasias. There was a mild amount of sigmoid diverticulosis. In the rectum, scope was retroflexed, visualizing internal hemorrhoids, but no other pathology. The rectal mucosa appeared normal. Scope was straightened and withdrawn from the patient. She tolerated the procedure well and was returned to the recovery area in stable condition. IMPRESSION: 1. Diverticulosis. 2. Internal hemorrhoids. PLAN: Given her family history of her mother, a maternal aunt, and maternal uncle having had colon cancer, I would recommend a repeat colonoscopy in 5 years for further screening. She will, otherwise, see me on a p.r.n. basis. MD LEI Richards/LIU / [phone]
== END 2024-04-17 11:38 | disposition home or self-care (01) ==
PROVIDERS: PCP Internal Medicine; Visit Provider Internal Medicine
PROC: (CPT G0105; principal; 2024-04-17 09:30)
DX: Z12.11 Encounter for screening for malignant neoplasm of colon (principal); Z80.0 Family history of malignant neoplasm of digestive organs; K57.30 Diverticulosis of large intestine without perforation or abscess without bleeding; K64.8 Other hemorrhoids; I48.91 Unspecified atrial fibrillation; I10 Essential (primary) hypertension; Z79.82 Long term (current) use of aspirin; Z79.899 Other long term (current) drug therapy; Z88.8 Allergy status to other drugs, medicaments and biological substances; Z91.041 Radiographic dye allergy status; Z98.890 Other specified postprocedural states
CPT/HCPCS: G0105; J2003; J2704

== ENCOUNTER 2024-05-31 08:27 | Outpatient (REF) | payer MEDICARE, OTHER, SELFPAY ==
--- OUTSIDE RECORDS SUMMARY | 2024-05-31 08:34 | XMS_ITS | Patient Health Record ---
Author Organization [facility] Address [address] [place] [address] Care Team Providers Care Depilatory Painter Name Role Phone Melody CHA, Karie Primary Care Provider Phillip Mckeon Unavailable [phone] ALLERGIES Allergen (clinical drug ingredient) Drug/Non Drug Allergy documented on EMR Reaction Allergy Type Onset Date Status sulfamethoxazole / trimethoprim Bactrim Unknown Drug Allergy Active contast dye (uncoded) Unknown Allergy Active REASON FOR REFERRAL No Information MEDICATIONS Medication SIG (Take, Route, Frequency, Duration) Notes Start Date End Date Status Aspirin 81 MG 1 tablet Orally Once a day Active hydroCHLOROthiazide 12.5mg Active Atenolol 50mg Active Flonase Allergy Relief 50 MCG/ACT 1 spray in each nostril Nasally Once a day for 30 day(s) Active Asya Allergy 180 MG 1 tablet Swallow whole with water; do not take with fruit juices. Orally Once a day for 30 day(s) Active Valtrex Active LORazepam 0.5mg prn when she flies Active IMMUNIZATIONS Vaccine Route Administration Date Status Comme nts Influenza Unknown 03/14/2023 Administered SOCIAL HISTORY Sex Assigned At : Social History Observation Description Sex Assigned At Unknown PROBLEMS Problem Type ICD Code Onset Dates Problem Status W/U Status Risk SNOMED Code Notes Problem Encounter for screening for malignant neoplasm of colon (Z12.11) Active confirmed Screening for malignant neoplasm of colon (064808421) Problem Encounter for other preprocedural examination (Z01.818) Active confirmed Pre-procedure evaluation check (848427970) Problem Diverticulosis of large intestine without perforation or abscess without bleeding (K57.30) Active confirmed Diverticul ar disease of colon (816444576) Problem Aspirin long-term use (Z79.82) Active confirmed Long-term current use of aspirin (57032414142400 3) Problem Family history of colon cancer (Z80.0) Active confirmed Family History of Cancer of Colon (Situation) (469435739) VITAL SIGNS Temperature 98.0 degrees Fahrenheit 01/17/2024 Blood pressure diastolic 00 mm Hg 01/17/2024 Height 65 in 01/17/2024 Blood pressure systolic 000 mm Hg 01/17/2024 Weight 229 lb 8 oz lbs 01/17/2024 BMI 38.19 kg/m2 01/17/2024 Encounters Encounter Location Date Provider Diagnosis [facility] [address] [place] [id number] 04/17/2024 Phillip Hernandez Colon cancer screeni ng Z12.11 ; Family history of colon cancer Z80.0 ; Diverticulosis of large intestine without perforation or abscess without bleeding K57.30 and Other hemorrhoids K64.8 [facility] [address] [place] [id number] 10/05/2023 Phillip Hernandez [facility] [address] [place] [phone] 01/17/2024 Phillip Hernandez Encounter for screen ing for malignant neoplasm of colon Z12.11 ; Aspirin long-term use Z79.82 ; Family history of colon cancer Z80.0 and Encounter for other preprocedural examination Z01.818 [facility] [address] [address] 09/25/2023 Phillip Hernandez ASSESSMENTS Encounter Date Diagnosis Assessment Notes Treatment Notes Treatment Clinical Notes 04/17/2024 Colon cancer screening (ICD-10 - Z12.11) 04/17/2024 Family history of colon cancer (ICD-10 - Z80.0) 01/17/2024 Encounter for screening for malignant neoplasm of colon (ICD-10 - Z12.11) Stop aspirin for 1 week before the colonoscopy. Do not use the Hydrochlorothiazide the day before or on the day of the colonosocpy 01/17/2024 Aspirin long-term use (ICD-10 - Z79.82) 04/17/2024 Diverticulosis of large intestine without perforation or abscess without bleeding (ICD-10 - K57.30) 01/17/2024 Family history of colon cancer (ICD-10 - Z80.0) 04/17/2024 Other hemorrhoids (ICD-10 - K64.8) 01/17/2024 Encounter for other preprocedural examination (ICD-10 - Z01.818) PLAN OF TREATMENT Future Test Test Name Order Date COLONOSCOPY 06/25/2013 COLONOSCOPY 01/17/2024 Insurance Providers Payer Name Payer Address Payer Phone Subscriber Number Group Number Insured Name Patient Relationship to Insured Coverage Start Date Coverage End Date MEDICARE OF [place] [address] [place] [address] [id number] JOSE MANUEL VASQUEZ Self - patient is the insured [employer] ([employer]) [address] [place] [address] [id number] JOSE MANUEL VASQUEZ Self - patient is the insured MEDICAL (GENERAL) HISTORY Medical History History ICD Code Colonoscopy 06-04-2008--neg e xcept for sigmoid diverticulosis and internal hemorrhoids. 2 episodes of A. fib--last time was in 2 012 Hypertension Denies MD,DM,CVA,Lung disease,renal dise ase Negative colonoscopy in August 2013 Surgical History Surgery Date(Month/Year) Ankle surgery Varicose vein surgery Right shoulder
--- OUTSIDE RECORDS SUMMARY | 2024-05-31 08:34 | XMS_ITS ---
Author Organization [facility] Address [address] [place] [address] Care Team Providers Care Chief Engineering Division Name Role Phone Melody CHA, Karie Primary Care Provider Phillip Mckeon [phone] REASON FOR VISIT Patient presents today for a screening colonoscopy Encounters Encounter Location Date Provider Diagnosis [facility] [address] [place] [address] 10/05/2023 Phillip Hernandez PLAN OF TREATMENT No Information
--- OUTSIDE RECORDS SUMMARY | 2024-05-31 08:34 | XMS_ITS ---
Author Organization [facility] Address [address] [place] [address] Care Team Providers Care Glazing Superintendent Name Role Phone Melody CHA, Karie Primary Care Provider Phillip Mckeon Unavailable [phone] ALLERGIES Allergen (clinical drug ingredient) Drug/Non Drug Allergy documented on EMR Reaction Allergy Type Onset Date Status sulfamethoxazole / trimethoprim Bactrim Unknown Drug Allergy Active contast dye (uncoded) Unknown Allergy Active REASON FOR VISIT Patient presents today for a colon screening MEDICATIONS Medication SIG (Take, Route, Frequency, Duration) Notes Start Date End Date Status Aspirin 81 MG 1 tablet Orally Once a day Active hydroCHLOROthiazide 12.5mg Active Valtrex Active LORazepam 0.5mg prn when she flies Active Atenolol 50mg Active Flonase Allergy Relief 50 MCG/ACT 1 spray in each nostril Nasally Once a day for 30 day(s) Active Asya Allergy 180 MG 1 tablet Swallow whole with water; do not take with fruit juices. Orally Once a day for 30 day(s) Active SOCIAL HISTORY Tobacco Use: Social History Observation Description Date Details (start date - stop date) Never Smoker NA - NA Sex Assigned At : Social History Observation Description Sex Assigned At Unknown Tobacco Use/Smoking Question Answer Notes Patient is a nonsmoker Alcohol Screen Question Answer Notes Did you have a drink contain ing alcohol in the past year? Yes Points 3 Interpretation Positive How often did you have 6 or more drinks on one occasion in the past year? Never (0 point) How many drinks did you have on a typical day when you were drinking in the past year? 1 or 2 drinks (0 point) How often did you have a dri nk containing alcohol in the past year? 2 to 3 times a week (3 points) PROBLEMS Problem Type ICD Code Onset Dates Problem Status W/U Status Risk SNOMED Code Notes Problem Encounter for screening for malignant neoplasm of colon (Z12.11) Active confirmed Screening for malignant neoplasm of colon (794455750) Problem Family history of colon cancer (Z80.0) Active confirmed Family History of Cancer of Colon (Situation) (101068936) Problem Encounter for other preprocedural examination (Z01.818) Active confirmed Pre-procedure evaluation check (674584834) Problem Aspirin long-term use (Z79.82) Active confirmed Long-term current use of aspirin (2029417664475 03) VITAL SIGNS BMI 38.19 kg/m2 01/17/2024 Blood pressure systolic 000 mm Hg 01/17/20 24 Blood pressure diastolic 00 mm Hg 024 Height 65 in 01/17/2024 Temperature 98.0 degrees Fahrenheit 01/17/20 24 Weight 229 lb 8 oz lbs 01/17/2024 Encounters Encounter Location Date Provider Diagnosis [facility] [address] [place] [address] 01/17/2024 Phillip Hernandez Encounter for screen ing for malignant neoplasm of colon Z12.11 ; Aspirin long-term use Z79.82 ; Family history of colon cancer Z80.0 and Encounter for other preprocedural examination Z01.818 ASSESSMENTS Encounter Date Diagnosis Assessment Notes Treatment Notes Treatment Clinical Notes 01/17/2024 Encounter for screening for malignant neoplasm of colon (ICD-10 - Z12.11) Stop aspirin for 1 week before the colonoscopy. Do not use the Hydrochlorothiazide the day before or on the day of the colonosocpy 01/17/2024 Aspirin long-term use (ICD-10 - Z79.82) 01/17/2024 Family history of colon cancer (ICD-10 - Z80.0) 01/17/2024 Encounter for other preprocedural examination (ICD-10 - Z01.818) PLAN OF TREATMENT Treatment Notes Assessment Notes Encounter for screening for malignant neoplasm of colon Stop aspirin for 1 week before the colonoscopy. Do not use the Hydrochlorothiazide the day before or on the day of the colonosocpy Future Test Test Name Order Date COLONOSCOPY 01/17/2024 Next Appt Details Follow Up: prn, Reason: Progress Notes * Examination Category Sub-Category Detail Notes General Examination GENERAL APPEARANCE: pleasant , well nourished, well developed, in no acute distress EYES: sclera non-icteric NECK/THYROID: no cervical lymphade nopathy, neck supple HEART: S1, S2 normal LUNGS: clear to auscultatio n bilaterally ABDOMEN: normal bowel sounds, no guarding or rigidity, no hepatosplenomegaly, no masses palpable, soft, nontender, nondistended. NEUROLOGIC: alert and oriented SKIN: nonjaundiced, no spi aster angiomata. EXTREMITIES: no edema ORAL CAVITY: mucosa moist
[2024-05-31 10:15] LABS: Hematocrit 43.4 % (37.0-47.0); Hemoglobin 14.7 g/dl (12.0-16.0)
[2024-05-31 12:01] LABS: Anion Gap 9 (12-20); Blood Urea Nitrogen 17 mg/dL (9-16); Calcium 9.3 mg/dL (8.4-10.2); Carbon Dioxide 31 mmol/L (22-29); Chloride 106 mmol/L (96-108); Cholesterol 204 mg/dL (<200); Estimated Glomerular Filt Rate > 60; Glucose Fasting 99 mg/dL (60-99); HDL Cholesterol 51 mg/dL (>40); LDL Cholesterol Calculated 126 mg/dL (<100); Potassium 4.2 mmol/L (3.3-5.1); Sodium 142 mmol/L (135-145); Triglycerides 137 mg/dL (<150); Vitamin D 25-OH Total 91.2 ng/mL (>30)
== END 2024-05-31 08:28 | disposition home or self-care (01) ==
LOC: HO.HMGCLDS 08:27
PROVIDERS: PCP Internal Medicine; Visit Provider Internal Medicine
DX: I10 Essential (primary) hypertension (principal); N20.0 Calculus of kidney; E66.9 Obesity, unspecified; E78.2 Mixed hyperlipidemia; Z78.0 Asymptomatic menopausal state
CPT/HCPCS: 36415; 80048; 80061; 82306; 85014; 85018

== ENCOUNTER 2024-06-04 09:39 | Outpatient (AMB) | payer MEDICARE, OTHER, SELFPAY ==
--- NOTE | 2024-06-04 09:53 | A.OFFPC_ITS ---
Vital Signs 06/04/24 10:17 Height 5 ft 5 in Weight 232 lb BMI 38.6 BP 132/70 Blood Pressure Location Lt brachial Position Sitting Pulse 52 Pulse Source Pulse Oximeter Pulse Oximetry (%) 97 Oxygen Delivery Method Room Air Intake Visit Reasons: Annual PE Intake Note: Pt is here today for her PE: Last mammogram 12/30/22, bone density scan 08/16/17, colonoscopy 08/26/13 Allergies bactrim Allergy (Intermediate, Verified 06/09/24 16:11) swelling, hives contrast dye Allergy (Intermediate, Verified 06/09/24 16:11) swelling of ear oxycodone Allergy (Intermediate, Verified 06/09/24 16:11) shaky/nausea sulfamethoxazole [From BACTRIM] Allergy (Intermediate, Verified 06/09/24 16:11) HIVES trimethoprim [From BACTRIM] Allergy (Intermediate, Verified 06/09/24 16:11) HIVES Medication List - Last Reconciled 06/09/24 by Karie Oliver MD aspirin (Adult Low Dose Aspirin) 81 mg PO DAILY atenolol 50 mg PO DAILY fluticasone propionate 50 mcg/actuation (Flonase Allergy Relief) 1 spray intranasal DAILY hydrochlorothiazide 12.5 mg PO DAILY lorazepam 0.5 mg PO DAILY PRN valacyclovir (Valtrex) 500 mg PO DAILY Tobacco use date assessed: 06/04/24 Fall risk assessment: No Falls in past year Last assessed Fall Risk: 06/04/24 Dental Screening Dental Screen Date: 06/04/24 Did you have a dental visit in the last 12 months?: Yes Did you have a dental problem in the last 6 months where you did not have access to dental care?: No Was dental information given to patient?: Patient has dentist HPI Annual PE HPI Details The patient is a 68-year-old female presenting for her physical exam - she has Degenerative Joint Disease ma nifests as hip discomfort, exacerbated when climbing stairs or carrying bags. Managed proactively with physical therapy focusing on flexibility and strength. - Obesity concerns are being managed wit h discussions around diet and exercise, constrained by insurance coverage limitations on weight loss medications. - Hyperlipidemia management is advised t hrough dietary adjustments, although her triglycerides have improved. 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 - Recent cold symptoms, primarily treate d with steam and limited use of nasal steroids sprays. - Vaccination history includes an incomp lete COVID booster and RSV shots. - up-to-date with her screening colonosc opy done 04/17/[address] Hernandez which showed presence of internal hemorrhoids and diverticulosis. Repeat colonoscopy due again in 5 years due to family history of colon cancer - Patient received flu vaccination in e previous year. - Mammogram performed in December 2023 - n ormal results. - Bone Density Scan from December 2023 ind icating normal lower back density, beginning bone thinning in hip. - Colonoscopy conducted in March 2024 showing hemorrhoids and diverticulosis. - sees [facility] for routi ne skin exams yearly -sees [facility] for her routine Pap and pelvic exam, seen by Olga Mai NP [facility] Medical History (Updated 06/09/24 @ 16:35 by Karie Oliver MD) History of atrial fibrillation Degenerative joint disease of right hip Obesity (BMI 30-39.9) Benign positional vertigo Bilateral renal stones Sinus bradycardia by electrocardiogram Ureterolithiasis Pain, foot, right, chronic Tibia and fibula open fracture, right Essential hypertension Mixed dyslipidemia Surgical History Hx of colonoscopy History of shoulder surgery History of ankle surgery Family History Father CVD (cardiovascular disease) Maternal Aunt Colon cancer Maternal Uncle Colon cancer Brother No problems noted. Brother No problems noted. Sister No problems noted. Sister No problems noted. Son No problems noted. Daughter No problems noted. Social History Housing: House Are you a primary aged or disabled carer to a significant other at home: No Do you presently have visiting nurse or other home services: No Alcohol intake: current Patient Tobacco Use Status: Former Tobacco user e-Cigarette/Vaping Use: Never Used service: No Current occupational status: retired Cognitive needs: No Hearing needs: No Vision needs: Yes Questionnaire PHQ-9 Over the last 2 weeks, how often have you been bothered by any of the following problems? 1. Little interest or pleasure in doing things: not at all 2. Feeling down, depressed, or hopeless: not at all 3. Trouble falling or staying asleep, or sleeping too much: not at all 4. Feeling tired or having little energy: not at all 5. Poor appetite or overeating: not at all 6. Feeling bad about yourself - or that you are a failure or have let yourself or your family down: not at all 7. Trouble concentrating on things, such as reading the newspaper or watching television: not at all 8. Moving or speaking so slowly that other people could have noticed. Or the opposite - being so fidgety or restless that you have been moving around a lot more than usual: not at all 9. Thoughts that you would be better off or of hurting yourself in some way: not at all Total score: 0 Depression Screening Interpretation: Negative Depression Screening Done: Yes 04335 - PHQ-9 Billing: Yes Source: Developed by Drs. Phillip Lynn, Mirna Avilez, Georgi Gilliam and colleagues, with an educational sunshine from [employer]. Thrive Questionnaire Date Thrive assessed: 06/04/24 I am a: Patient What is your living situation today?: I have a steady place to live Within the past 12 months, did the food you bought not last and you didn't have the money to get more?: Never true Within the past 12 months, did you worry whether your food would run out before you got money to buy more?: Never true Do you have trouble paying for medicines?: No Do you have trouble getting transportation to medical appointments?: No Do you have trouble paying your heating and electricity bill?: No Do you have trouble taking care of your child, family member or friend?: No Do you have trouble with day-to-day activities such as bathing, preparing meals, shopping, managing finances, etc.?: No Are you currently unemployed and looking for a job?: No Are you interested in more education?: No Please select the resources that you would like help with: None Currently or been in a relationship where the following occur: No concerns reported THRIVE Score: 0 AUDIT C Alcohol Use Questionnaire (AUDIT-C) 1. How often do you have a drink containing alcohol?: 2-4 times a month 2. How many drinks containing alcohol do you have on a typical day when you are drinking?: 1 or 2 3. How often do you have six or more drinks on one occasion?: Never Total Score: 2 MITCHELL-7 AMB Questionnaire MITCHELL-7 Date MITCHELL - 7 assessed: 06/04/24 Feeling nervous, anxious, or on edge: 0 = Not at all Not being able to stop or control worryin = Not at all Worrying too much about different things: 0 = Not at all Trouble relaxin = Not at all Being so restless that it is hard to sit still: 0 = Not at all Becoming easily annoyed or irritable: 0 = Not at all Feeling afraid as if something awful might happen: 0 = Not at all Total MITCHELL-7 score (0-4 normal; 5-9 mild; 10-14 moderate; 15-21 severe): 0 Source: Developed by Drs. Phillip Lynn, Mirna Avilez, Georgi Gilliam and colleagues, with an educational sunshine from [employer]. MITCHELL-7 Assessment Billing MITCHELL-7 Assessment Tool: MITCHELL-7 Assessment 97699 Review of Systems Const Denies body aches, Denies fatigue and Denies weakness Eyes Reports no additional complaints ENT Reports no additional complaints Card Denies chest pain, Denies lightheadedness, Denies palpitations and Denies dyspnea Resp Denies chest congestion and Denies dyspnea GI Denies abdominal pain, Denies change in bowel habits and Denies heartburn Reports no additional complaints Musc Reports as per HPI Skin/Breast Denies breast pain, Denies breast mass, Denies lesions and Denies rash Neuro Denies weakness Psych Reports no additional complaints Endo Denies fatigue, Denies polydipsia, Denies polyuria and Denies palpitations Ken/Lymph Reports no additional complaints Aller/Immun Reports seasonal rhinorrhea Physical exam (Primary Care) Vital Signs: Last Vital Signs Pulse 52 06/04/24 10:17 BP 132/70 06/04/24 10:17 Pulse Ox 97 06/04/24 10:17 Oxygen Delivery Method Room Air 06/04/24 10:17 BMI result Body Mass Index 38.6 Tobacco/Smoking Status: Tobacco use Status Tobacco use date assessed 06/04/24 06/04/24 10:12 Patient Tobacco Use Status Former Tobacco user 06/04/24 09:53 e-Cigarette/Vaping Use Never Used 06/04/24 09:53 PHQ-9: PHQ-9 Score PHQ-9: Total score 0 06/09/24 16:10 Depression Screening Interpretation: Negative Thrive Assessment: Date of Thrive Assessment Date Thrive assessed 06/04/24 06/04/24 10:12 Currently or been in a relationship where the following occur: No concerns reported Advance Care Planning discussion: Completed/Scanned Date of discussion: 06/04/24 Who was present: patient Forms completed: MOLST Time spent: 16-45 minutes Actual minutes spent: 4 Const Other: Obese, Alert oriented x3, no acute distress noted, ambulatory with normal gait Orientation/consciousness: patient oriented x3 HENMT Mouth: Normal oral and palatal mucosa present and moist mucous membranes Eyes General: appearance normal, both eyes and all related structures Neck Other: Supple, no lymphadenopathy, thyroid gland nonpalpable and nontender Chest Breast/axilla palpation: normal palpation of the breasts Resp Auscultation: clear to auscultation bilaterally Cardio Other: S1-S2 present, regular rate and rhythm GI Other: Normal bowel sounds, soft, nontender, no mass palpated General: Yes no CVA tenderness and Yes deferred (Has an OBGYN) Back/Spine/Pelvis Back: no CVA tenderness and No back tenderness Skin General skin exam: no rashes or lesions noted Neuro General: patient oriented x3, gait normal, moves all extremities, Normal light touch and pain sensation, no focal motor deficits and CN's II-XI intact bilaterally Extrem General: Yes full ROM, Yes no joint enlargement, Yes no pedal edema and Yes normal gait Psych Appearance: grossly normal and well kempt Mental Status: mental status grossly normal Speech and movement: Normal speech and movement present Affect: normal affect Results Reviewed Results Reviewed: Laboratory Tests 05/31/24 08:30 Hgb 14.7 Hct 43.4 Name: Terra Martel Age/Sex: 68/F : 1955 Unit#: [id number] Attend Dr: Karie Oliver MD Re05/31/24 Status: DEP REF Location: [facility] Disch: SPEC : [id number] DONNA: 05/31/24 STATUS: COMP REQ : [id number] RECD: 05/31/24-[address]: Karie Oliver MD COMP: 05/31/24-120 ENTERED: 05/31/[address] [facility] [address]: ORDERED: Met Prof Fast, Lipid Panel, Vitamin D 25-OH Test Result Flag Reference Sodium 142 135-145 mmol/L Potassium 4.2 3.3-5.1 mmol/L CL 106 96-108 mmol/L CO2 31 H 22-29 mmol/L Gap 9 L 12-20 BUN 17 H 9-16 mg/dL Creat 0.64 0.5-1.4 mg/dL eGFR > 60 Chronic Kidney Disease: Estimated GFR < 60 mL/min/1.73m2 Severe Kidney Disease: Estimated GFR < 15 mL/min/1.73m2 FBS 99 60-99 mg/dL CA 9.3 # 8.4-10.2 mg/dL Triglyceride 137 <150 mg/dL Desirable Triglyceride: less than 150 mg/dL Borderline High Triglyceride 150-199 mg/dL High Triglyceride: 200-499 mg/dL Very High Triglyceride: greater than or equal to 5OO mg/dL Cholesterol 204 H <200 mg/dL Desirable Cholesterol: less than 200 mg/dL Borderline High Cholesterol: 200-239 mg/dL High Cholesterol: greater than 239 mg/dL LDL Calculated 126 H <100 mg/dL Desirable LDL: less than 100 mg/dL Near Optimal/Above Optimal LDL: 110-129 mg/dL Borderline High LDL: 130-159 mg/dL High LDL: 160-189 mg/dL Very High LDL: greater than or equal to 190 mg/dL HDL 51 >40 mg/dL Desirable HDL: greater than 40 mg/dL Note: This HDL assay may give artificially low results in patients with liver disease. Vit D 25-OH Tot 91.2 >30 ng/mL Health Based Reference Values* < 20 ng/mL Deficient 20-30 ng/mL Insufficient > 30 ng/mL Sufficient Coding Level of Care Code Est Pt Prev Care >65y(69482) Diagnoses Annual visit for general adult medical examination with abnormal findings Z00.01 Obesity (BMI 30-39.9) E66.9 Essential hypertension I10 Mixed dyslipidemia E78.2 Degenerative joint disease of right hip M16.11 Advanced directives, counseling/discussion Z71.89 History of atrial fibrillation Z86.79 Additional Codes Vital Signs *Quality* - Advance Care Planning discussion: Completed/Scanned ([id number]) Vital Signs *Quality* - Time spent: 16-45 minutes ([id number]) PHQ-9 - 62524 - PHQ-9 Billing: Yes ([id number]) MITCHELL-7 Assessment Billing - MITCHELL-7 Assessment Tool: MITCHELL-7 Assessment 23017 ([id number]) Assessment & Plan Assessment & Plan (1) Annual visit for general adult medical examination with abnormal findings: Code(s): Z00.01 - Encounter for general adult medical examination with abnormal findings (2) Obesity (BMI 30-39.9): Code(s): E66.9 - Obesity, unspecified Category: Medical (3) Essential hypertension: Code(s): I10 - Essential (primary) hypertension Category: Medical (4) Mixed dyslipidemia: Code(s): E78.2 - Mixed hyperlipidemia Category: Medical (5) Degenerative joint disease of right hip: Code(s): M16.11 - Unilateral primary osteoarthritis, right hip Category: Medical (6) Advanced directives, counseling/discussion: Code(s): Z71.89 - Other specified counseling Plan: Initiated the conversation about Advanced Directives. Advanced Directives help patients prepare for current and future decisions about their medical treatment and place of care. Discussed with patient that it is a process where a patients current condition and prognosis are reviewed, their wishes for information regarding their illness are elicited, and likely medical dilemmas are presented and options discussed. MOLST form done today. Patient will submit a copy of healthcare proxy. The form can be amended as needed, reviewed yearly and make changes as needed (7) History of atrial fibrillation: Comment: PAF-seen by Dr. Neville several years ago, per patient and placed on aspirin-last occurrence 2011 Code(s): Z86.79 - Personal history of other diseases of the circulatory system Category: Medical Plan I discussed the continued plan for managing degenerative joint disease with ongoing physical therapy exercises and potential lifestyle modifications to manage obesity and hyperlipidemia. I explained the limitations of pharmacological options due to insurance constraints and emphasized lifestyle interventions. We also discussed seasonal allergy management and options available for different antihistamine medications. Her current management of atrial fibrillation with aspirin was affirmed, with no changes recommended unless new symptoms occur. The patient understands the ongoing need for monitoring her vaccination status, especially concerning COVID-19 and RSV, and agreed to follow up on these issues with her pharmacy. She was informed about the potential for continued Valtrex use for herpes to avoid recurrences. I outlined the importance of regular health maintenance checks like colonoscopies and mammograms, and the patient was receptive to updating their healthcare proxy as documented. - Continue with current physical therapy regimen, ensuring to perform exercises at home. - Use heat patches if hip discomfort persists and take ibuprofen with food if needed. - Implement gradual dietary and exercise changes to support weight management. - Consider new antihistamine if current allergy symptoms persist. - Continue taking Valtrex to prevent herpes symptoms. - Ensure vaccinations are up to date, particularly for RSV and COVID. - Medications: Refilled atenolol 50 mg PO DAILY 90 tabs 3RF I10 - Essential (primary) hypertension hydrochlorothiazide 12.5 mg PO DAILY 90 caps 3RF I10 - Essential (primary) hypertension
[2024-06-04 10:17] VITALS: BP 132/70; PULSE 52; O2SAT 97; BMI 38.6
--- OUTSIDE RECORDS SUMMARY | 2024-06-04 10:39 | XMS_ITS ---
Author Organization [facility] Address [address] [place] [address] Care Team Providers Care Circuit Breaker Assembler Name Role Phone Melody CHA, Karie Primary Care Provider Phillip Mckeon Unavailable [phone] ALLERGIES Allergen (clinical drug ingredient) Drug/Non Drug [...] confirmed Screening for malignant neoplasm of colon (524544574) Problem Family history of colon cancer (Z80.0) Active confirmed Family History of Cancer of Colon (Situation) (890346008) Problem Encounter for other preprocedural examination (Z01.818) Active confirmed Pre-procedure evaluation check (130096074) Problem Aspirin long-term use (Z79.82) Active confirmed Long-term current use of aspirin ([id number] 03) VITAL SIGNS BMI 38.19 kg/m2 01/17/2024 Blood pressure systolic 000 mm Hg 01/17/20 24 Blood pressure diastolic 00 mm Hg 024 Height 65 in 01/17/2024 Temperature 98.0 degrees Fahrenheit 01/17/20 24 Weight 229 lb 8 oz lbs 01/17/2024 Encounters Encounter Location Date [facility] [address] [place] [address] 01/17/2024 Phillip Hernandez Encounter for screen ing [...]
--- OUTSIDE RECORDS SUMMARY | 2024-06-04 10:39 | XMS_ITS ---
Author Organization [facility] Address [address] [place] [address] Care Team Providers Care Blending Tank Helper Name Role Phone Melody CHA, Karie Primary Care Provider Phillip Mckeon [phone] REASON FOR VISIT Patient presents today for a screening colonoscopy Encounters Encounter Location Date Provider Diagnosis [facility] [address] [place] [address] 10/05/2023 Phillip Hernandez PLAN OF TREATMENT No Information
--- OUTSIDE RECORDS SUMMARY | 2024-06-04 10:39 | XMS_ITS | Patient Health Record ---
Author Organization [facility] Address [address] [place] [address] Care Team Providers Care Roller Skates Assembler Name Role Phone Melody CHA, Karie Primary Care Provider Phillip Mckeon Unavailable [phone] ALLERGIES Allergen (clinical drug ingredient) Drug/Non Drug [...] confirmed Screening for malignant neoplasm of colon (943875709) Problem Encounter for other preprocedural examination (Z01.818) Active confirmed Pre-procedure evaluation check (611415237) Problem Diverticulosis of large intestine without perforation or abscess without bleeding (K57.30) Active confirmed Diverticul ar disease of colon (963910091) Problem Aspirin long-term use (Z79.82) Active confirmed Long-term current use of aspirin ([id number] 3) Problem Family history of colon cancer (Z80.0) Active confirmed Family History of Cancer of Colon (Situation) (907541112) VITAL SIGNS Temperature 98.0 degrees Fahrenheit 01/17/2024 Blood pressure diastolic 00 mm Hg 01/17/2024 Height 65 in 01/17/2024 Blood pressure systolic 000 mm Hg 01/17/2024 Weight 229 lb 8 oz lbs 01/17/2024 BMI 38.19 kg/m2 01/17/2024 Encounters Encounter Location Date Provider Diagnosis [facility] [place] [place] [address] [place], [place] [id number] 04/17/2024 Phillip Hernandez Colon cancer screeni ng Z12.11 ; Family history of colon cancer Z80.0 ; Diverticulosis of large intestine without perforation or abscess without bleeding K57.30 and Other hemorrhoids K64.8 [facility] [address] [place] [address] 10/05/2023 Phillip Hernandez [facility] [address] [place] [address] 01/17/2024 Phillip Hernandez Encounter for screen ing for malignant neoplasm of colon Z12.11 ; Aspirin long-term use Z79.82 ; Family history of colon cancer Z80.0 and Encounter for other preprocedural examination Z01.818 [facility] [address] [address] 09/25/2023 Phillip Hernandez ASSESSMENTS Encounter Date Diagnosis [...] Date MEDICARE OF [place] [address] [place] [address] [id number] JOSE MANUEL VASQUEZ Self - patient is the insured [employer] ([employer]) [address] [place] [address] [id number] JOSE MANUEL VASQUEZ Self - patient is the insured MEDICAL (GENERAL) HISTORY Medical History History ICD Code Colonoscopy 06-04-2008--neg e xcept for sigmoid diverticulosis and internal hemorrhoids. 2 episodes of A. fib--last time was in 2 012 Hypertension Denies CA,DM,CVA,Lung disease,renal dise ase Negative colonoscopy in August 2013 Surgical History Surgery Date(Month/Year) Ankle surgery Varicose vein surgery Right shoulder
== END 2024-06-04 11:15 | disposition home or self-care (01) ==
PROVIDERS: PCP Internal Medicine; Visit Provider Internal Medicine
DX: Z00.00 Encounter for general adult medical examination without abnormal findings (principal); E66.9 Obesity, unspecified; Z68.38 Body mass index [BMI] 38.0-38.9, adult; I10 Essential (primary) hypertension; E78.2 Mixed hyperlipidemia; M16.11 Unilateral primary osteoarthritis, right hip; Z71.89 Other specified counseling; Z86.79 Personal history of other diseases of the circulatory system

== ENCOUNTER → 2024-06-04 09:39 | Outpatient (BNVA) | payer MEDICARE, OTHER, SELFPAY | PROVIDERS: PCP Internal Medicine; Visit Provider Internal Medicine | DX: Z00.01 Encounter for general adult medical examination with abnormal findings (principal); E66.9 Obesity, unspecified; I10 Essential (primary) hypertension; E78.2 Mixed hyperlipidemia; M16.11 Unilateral primary osteoarthritis, right hip; Z68.38 Body mass index [BMI] 38.0-38.9, adult | CPT/HCPCS: 96127; 99397 ==

== ENCOUNTER 2024-08-18 04:45 | Emergency (ER) | payer MEDICARE, OTHER, SELFPAY ==
--- NOTE | 2024-08-18 | ECG_ITS ---
Test Reason : ARRYTHMIA Blood Pressure : */* mmHG Vent. Rate : 61 BPM Atrial Rate : 61 BPM P-R Int : 210 ms QRS Dur : 84 ms QT Int : 410 ms P-R-T Axes : -24 5 18 degrees QTcB Int : 412 ms Sinus rhythm with 1st degree A-V block with Premature atrial complexes Otherwise normal ECG When compared with ECG of 18-Aug-2024 06:46, No significant change was found Referred By: Giovanny Mustafa Electronically Signed By: SAUD CR MD
--- NOTE | ~2024-08-18 | XR_ITS ---
CLINICAL HISTORY: afib Chest X-ray, 1 View COMPARISON: None FINDINGS: No consolidation. No pleural effusion. No pneumothorax. No cardiomegaly. No acute fracture. Elevation of the right hemidiaphragm. IMPRESSION: No acute findings. This document has been electronically signed by: Kaushal Tomlinson MD on 08/18/2024 06:08:17
[2024-08-18 04:48] VITALS: BP 140/101; PULSE 90; RESP 16; TEMP 36.5; O2SAT 98; BMI 38.1
--- NOTE | 2024-08-18 04:52 | ECG_ITS ---
Test Reason : IRREGULAR HEARTBEAT Blood Pressure : */* mmHG Vent. Rate : 103 BPM Atrial Rate : * BPM P-R Int : * ms QRS Dur : 84 ms QT Int : 322 ms P-R-T Axes : * 0 19 degrees QTcB Int : 421 ms Atrial fibrillation with rapid ventricular response with premature ventricular or aberrantly conducted complexes Abnormal ECG When compared with ECG of 29-Jun-2010 06:57, Atrial fibrillation with rapid ventricular response has replaced Normal sinus rhythm Referred By: Generic ED Physician Electronically Signed By: SAUD CR MD
[2024-08-18 05:10] VITALS: BP 155/100; PULSE 112; RESP 17; O2SAT 99
[2024-08-18 05:13] LABS: Basophils Percent Auto 0.4 % (0-2); Eosinophils Absolute Auto 0.3 X10*3/uL (0.0-0.4); Eosinophils Percent Auto 3.2 % (0-4); Hematocrit 41.4 % (37.0-47.0); Hemoglobin 14.4 g/dl (12.0-16.0); Imm Gran Abs Auto 0.03 X10*3/uL (0.00-0.03); Imm Gran Pct Auto 0.4 % (0.0-0.4); Lymphocytes Absolute Auto 3.3 X10*3/uL (1.2-4.9); Lymphocytes Percent Auto 39.9 % (20-40); MANUAL DIFF FLAG NO; Mean Corpuscular HGB Conc 34.8 g/dl (31.0-35.0); Mean Corpuscular Hemoglobin 31.9 pg (27.0-33.0); Mean Corpuscular Volume 91.8 fL (80.0-98.0); Mean Platelet Volume 10.2 fL (9.4-12.3); Monocytes Absolute Auto 0.7 X10*3/uL (0.1-1.2); Monocytes Percent Auto 8.5 % (2-11); Neutrophils Percent Auto 47.6 % (45-73); Platelet Count 253 X10*3/uL (160-400); Red Blood Count 4.51 X10*6/uL (4.20-5.50); Red Cell Distribution Width 12.9 % (11.0-16.0); White Blood Count 8.4 X10*3/uL (4.8-10.8)
[2024-08-18 05:19] LABS: INTERNATIONAL NORM RATIO 0.9 (0.9-1.1); Prothrombin Time 10.2 SEC (10.9-12.4)
--- NOTE | 2024-08-18 05:26 | ED.ARRPALP ---
HPI - Arrhythmia/Palpitations General Chief Complaint: Arrhythmia/Palpitations Stated Complaint: irregular heart rate Time Seen by Provider: 08/18/24 05:06 Source: patient Mode of arrival: ambulatory Limitations: no limitations History of Present Illness ED Provider: Dr. Brendan Preston HPI narrative: 68-year-old female with a history of hypertension, hyperlipidemia, paroxysmal atrial fibrillation who presents emergency department for evaluation of palpitations. The patient states she woke up at 0130 hours and felt like her heart was beating irregularly with occasional strong beats. She states that the episode felt similar to when she had atrial fibrillation in the past. She states she was had 2 episodes of atrial fibrillation 1 where she converted spontaneously in the 2nd time when she was admitted to the hospital and converted after giving IV medications. She currently feels like her heart is beating irregularly. She denies any chest pain, shortness of breath, nausea, vomiting or diaphoresis. Related Data Home Medications ?Medication ?Instructions ?Recorded ?Confirmed aspirin 81 mg tablet,delayed 81 mg PO DAILY 08/26/21 04/15/24 release (Adult Low Dose Aspirin) valacyclovir 500 mg tablet 500 mg PO DAILY 01/18/23 04/15/24 (Valtrex) Previous Rx's ?Medication ?Instructions ?Recorded fluticasone propionate 50 1 spray intranasal DAILY #9.9 mL 12/20/22 mcg/actuation nasal spray,suspension (Flonase Allergy Relief) atenolol 50 mg tablet 50 mg PO DAILY #90 tabs 06/04/24 hydrochlorothiazide 12.5 mg capsule 12.5 mg PO DAILY #90 caps 06/04/24 lorazepam 0.5 mg tablet 0.5 mg PO DAILY PRN anxiety during 08/01/24 plane travel #10 tabs apixaban 5 mg tablet (Eliquis) 5 mg PO BID 30 days #60 tabs 08/18/24 Allergies Allergy/AdvReac Type Severity Reaction Status Date / Time bactrim Allergy Intermediate swelling, Verified 08/18/24 04:50 hives contrast dye Allergy Intermediate swelling Verified 08/18/24 04:50 of ear oxycodone Allergy Intermediate shaky/nause Verified 08/18/24 04:50 a sulfamethoxazole Allergy Intermediate HIVES Verified 08/18/24 04:50 [From BACTRIM] trimethoprim [From BACTRIM] Allergy Intermediate HIVES Verified 08/18/24 04:50 Review of Systems Review of Systems: Yes all other systems are reviewed and are negative [facility] Past Medical History [facility] Narrative: Social history: She denies tobacco use. She occasionally drinks alcohol. She denies drug use. Medical History (Updated 08/18/24 @ 07:26 by Brendan Preston MD) History of Papanicolaou smear of cervix History of atrial fibrillation Degenerative joint disease of right hip Obesity (BMI 30-39.9) Benign positional vertigo Bilateral renal stones Sinus bradycardia by electrocardiogram Ureterolithiasis Pain, foot, right, chronic Tibia and fibula open fracture, right Essential hypertension Mixed dyslipidemia Surgical History Hx of colonoscopy History of shoulder surgery History of ankle surgery Family History Family History Father CVD (cardiovascular disease) Maternal Aunt Colon cancer Maternal Uncle Colon cancer Brother No problems noted. Brother No problems noted. Sister No problems noted. Sister No problems noted. Son No problems noted. Daughter No problems noted. Social History Social History Housing: House Are you a primary critical care nurse to a significant other at home: No Do you presently have visiting nurse or other home services: No Alcohol intake: current Alcohol intake frequency: holidays/special occasions only Alcohol type: wine Patient Tobacco Use Status: Former Tobacco user Smoked in Last 30 Days: No e-Cigarette/Vaping Use: Never Used Use of substances other than those prescribed or required for medical reasons: No Advance Directives: Yes Advance Directives on File: Yes Advance Directives Date on File: 06/06/24 Do you have a plan to hurt others: No Plan service: No Current occupational status: retired Cognitive needs: No Hearing needs: No Vision needs: Yes Physical Exam Vital Signs: Vital Signs: Last Vital Signs Temp 97.7 F 08/18/24 06:53 Pulse 65 08/18/24 06:53 Resp 18 08/18/24 06:53 BP 125/81 08/18/24 06:53 Pulse Ox 97 08/18/24 06:53 O2 Del Method Room Air 08/18/24 06:53 BMI result Body Mass Index 38.1 Vital signs revealed an elevated heart rate of 112 and an elevated blood pressure of 155/100 Exam: General: Awake, alert in no distress Head: Normocephalic, atraumatic EENT: PERRL, Lids normal, sclera normal, conjunctiva normal, nose normal , ears normal, throat without erythema or exudates Neck: Supple, no adenopathy Lung: breath sounds symmetric, no wheezing, rales or rhonchi Chest: symmetric movement, nontender Heart: Irregularly irregular rapid rate, normal Abdomen: soft, non-tender, nondistended, normal bowel sounds Back: no vertebral tenderness, no CVAT Extremities: no deformities, moves all extremities symmetrically Neuro: Awake, alert, oriented, normal speech, cranial nerves intact, moves all extremities symmetrically Psych: Pleasant, cooperative Medications Administered Discontinued Medications Generic Name Dose Route Start Last Admin Trade Name Freq PRN Reason Stop Dose Admin Flecainide Acetate 300 mg 08/18/24 05:22 08/18/24 05:48 Flecainide Acetate 50 Mg Tablet PO 08/18/24 05:23 300 mg ONCE ONE Administration Metoprolol Succinate 50 mg 08/18/24 05:22 08/18/24 05:48 Metoprolol Succinate Er 50 Mg Tab.Er.24h PO 08/18/24 05:23 50 mg ONCE ONE Administration Protocol Medical Decision Making Medical Decision Making MDM Narrative: 68-year-old female with a history of hypertension, hyperlipidemia, paroxysmal atrial fibrillation who presents emergency department for evaluation of palpitations and the patient's 12 EKG revealed that she was in atrial fibrillation. Differential diagnosis: ?Includes but is not limited to atrial fibrillation, myocardial infarction, myocardial ischemia, electrolyte abnormalities, anemia Course: 05:40 The patient was presentation is consistent with sudden onset of atrial fibrillation with a known time of onset at 01:30 hours. I did discuss chemical cardioversion with flecainide versus electrical cardioversion with the patient. After this discussion, the patient chose chemical cardioversion with flecainide. She was given flecainide 300 mg orally and metoprolol succinate ER 50 mg orally. The patient will need to be monitor for a total of 4 hours (with an if she cardiovert before 4 hours) to watch for arrhythmias. If the patient does not spontaneously convert after 4 hours then electrocardioversion should be considered. The patient has a [id number] Score of 3 which puts her at a 3.2% per year risk of stroke. I did discuss this with her and told her that she most likely will need anticoagulation therapy as opposed to antiplatelet therapy. Patient requested that we discuss appropriate treatment with the vice president sales and marketing prior to being discharged. 06:03 My interpretation patient's laboratory evaluation is as follows: CBC was normal. Comprehensive metabolic panel was normal. Troponin was below detectable limits. TSH is elevated at 5.65 with T4 pending. The patient did cardia evaluated and repeat EKG revealed a sinus rhythm with a first-degree AV block . I did discuss the patient's presentation with our covering vice president sales and marketing, Dr. Morris. He recommended that the patient start Eliquis 5 mg b.i.d. and stay on this medication to reduce the risk of stroke , continue on her beta-arsh and avoid stimulants such as caffeine and alcohol. The patient is going on a trip to [place] [facility] and will not be back in the country for 28 days. I did tell the patient's important that when she get back to [facility] she should follow up with the vice president sales and marketing's to minimally get an echocardiogram and further treatment in the for paroxysmal atrial fibrillation the patient will need to be on the monitor technician until 10:00 hours at which time if she has no a arrhythmias in remains in sinus rhythm she can be discharged. At the end of my shift, the patient's care was turned over to my colleague, Dr. Dank Mustafa. Admission/Observation Consideration of admission/observation: Escalation of care including admission/observation considered (Yes) Lab Data MDM Lab Attestation statement: I reviewed the patient's lab results. 08/18/24 05:06 08/18/24 05:06 Labs: Lab Results 08/18/24 Range/Units 05:06 WBC 8.4 (4.8-10.8) X10*3/uL RBC 4.51 (4.20-5.50) X10*6/uL Hgb 14.4 (12.0-16.0) g/dl Hct 41.4 (37.0-47.0) % MCV 91.8 (80.0-98.0) fL MCH 31.9 (27.0-33.0) pg MCHC 34.8 (31.0-35.0) g/dl RDW 12.9 (11.0-16.0) % Plt Count 253 (160-400) X10*3/uL MPV 10.2 (9.4-12.3) fL Immature Gran % (Auto) 0.4 (0.0-0.4) % Neut % (Auto) 47.6 (45-73) % Lymph % (Auto) 39.9 (20-40) % Rusk % (Auto) 8.5 (2-11) % Eos % (Auto) 3.2 (0-4) % Baso % (Auto) 0.4 (0-2) % Lymph # (Auto) 3.3 (1.2-4.9) X10*3/uL Rusk # (Auto) 0.7 (0.1-1.2) X10*3/uL Eos # (Auto) 0.3 (0.0-0.4) X10*3/uL Baso # (Auto) 0.0 (0.0-0.2) X10*3/uL Abs Immat Gran (auto) 0.03 (0.00-0.03) X10*3/uL Absolute Neuts (auto) 4.0 (2.0-8.3) x10*3/uL Absolute Nucleated RBC 0.000 (0.0-0.012) X10*3/uL Nucleated RBC % (auto) 0.0 (0.0-0.2) /100WBC Hold Purple Top SEE NOTE PT 10.2 L (10.9-12.4) SEC INR 0.9 (0.9-1.1) APTT 29.3 (26.0-36.8) SEC Sodium 141 (135-145) mmol/L Potassium 3.9 (3.3-5.1) mmol/L Chloride 107 (96-108) mmol/L Carbon Dioxide 27 (22-29) mmol/L Anion Gap 11 L (12-20) BUN 20 H (9-16) mg/dL Creatinine 0.60 (0.5-1.4) mg/dL Estim Creat Clear Calc 114.1 Estimated GFR > 60 Random Glucose 106 (60-115) mg/dL Calcium 9.2 (8.4-10.2) mg/dL Magnesium 2.0 (1.6-2.6) mg/dL Total Bilirubin 0.4 (0.0-1.0) mg/dL AST 23 (5-31) U/L ALT 27 (0-31) U/L Alkaline Phosphatase 76 (39-117) U/L Troponin I High Sens < 2.7 (<3.5-17.0) ng/L Total Protein 7.1 (6.5-8.0) g/dL Albumin 4.2 (3.5-5.0) g/dL Lipase 23 (8-78) U/L TSH 5.65 H (0.32-4.0) uIU/mL Independent Interpretation I performed an independent interpretation of an: EKG Interpretation: my independent interpretation of EKG 1. Done on 08/18/2024 at 05:00 hours: Atrial fibrillation with a RVR rate of 103, no ST segment elevation, no ST segment depression, no significant T-wave abnormalities. my independent interpretation of EKG 2. Done on 08/18/2024 at 06:46 hours: sinus rhythm with a first-degree AV block with a rate of 69 and a NH interval 218 milliseconds, normal QRS duration QTC interval, no significant T-wave abnormalities my independent interpretation of the patient's chest x-ray is as follows: No acute disease Radiology Impression Discussion of test interpretation with radiology: I have reviewed the radiologist's reading. Radiologist Impression: Chest X-ray, 1 View COMPARISON: None FINDINGS: No consolidation. No pleural effusion. No pneumothorax. No cardiomegaly. No acute fracture. Elevation of the right hemidiaphragm. IMPRESSION: No acute findings. This document has been electronically signed by: Kaushal Tomlinson MD on 08/18/2024 06:08:17 Independent Historian Clinical information obtained from an independent historian. History obtained from or confirmed by: Other ( significant other) Prescription Management I considered prescription management with: Other ( Eliquis) Chronic Conditions Patient?s care impacted by: Hypertension Discharge Plan Discharge Clinical Impression: Atrial fibrillation Patient Disposition: Still a Patient Instructions: A-fib (Atrial Fibrillation) (ED), Blood Thinners (ED) Additional Instructions: You initial EKG showed that you are in atrial fibrillation. You received flecainide 300 mg orally and metoprolol ER 50 mg orally and you converted to a normal sinus rhythm. I did discuss your situation with our covering vice president sales and marketing, Dr. Morris. He recommended that you take Eliquis 5 mg every 12 hours to help reduce your risk of stroke in the event that you go in and out of atrial fibrillation. He also recommended that you avoid any stimulants such as caffeine and alcohol why you are on your trip. When you returned from your trip you should follow-up with a vice president sales and marketing for further evaluation, minimally you should have an echocardiogram. Do not take any NSAIDs such as ibuprofen, Motrin, Advil, Aleve, naproxen or aspirin while you are taking Eliquis. Continue taking your beta arsh daily. Please return to the emergency department if your symptoms get worse or if you develop any symptoms that are concerning to you. Prescriptions: New Eliquis 5 mg tablet 5 mg PO BID 30 Days Qty: 60 3RF No Action lorazepam 0.5 mg tablet 0.5 mg PO DAILY PRN (Reason: anxiety during plane travel) Qty: 10 0RF aspirin [Adult Low Dose Aspirin] 81 mg tablet,delayed release (DR/EC) 81 mg PO DAILY valacyclovir [Valtrex] 500 mg tablet 500 mg PO DAILY fluticasone propionate [Flonase Allergy Relief] 50 mcg/actuation spray,suspension 1 spray intranasal DAILY Qty: 9.9 1RF Rx Instructions: administer into each nostril atenolol 50 mg tablet 50 mg PO DAILY Qty: 90 3RF hydrochlorothiazide 12.5 mg capsule 12.5 mg PO DAILY Qty: 90 3RF Referrals: Ld Morris MD [Physician] - ( paroxysmal atrial fibrillation, chemically cardioverted with flecainide, patient is leaving the country for 1 month but should have follow-up when she returns.) Print Language: Albanian
[2024-08-18 05:41] LABS: Alanine Aminotransferase 27 U/L (0-31); Albumin Level 4.2 g/dL (3.5-5.0); Alkaline Phosphatase 76 U/L (39-117); Anion Gap 11 (12-20); Aspartate Amino Transferase 23 U/L (5-31); Bilirubin Total 0.4 mg/dL (0.0-1.0); Blood Urea Nitrogen 20 mg/dL (9-16); Calcium 9.2 mg/dL (8.4-10.2); Carbon Dioxide 27 mmol/L (22-29); Chloride 107 mmol/L (96-108); Creatinine Clr Calc Pharmacy 114.1; Estimated Glomerular Filt Rate > 60; Glucose Random 106 mg/dL (60-115); Lipase 23 U/L (8-78); Potassium 3.9 mmol/L (3.3-5.1); Sodium 141 mmol/L (135-145); Total Protein 7.1 g/dL (6.5-8.0); Troponin-I High Sensitivity < 2.7 ng/L (<3.5-17.0)
[2024-08-18] MEDS: Metoprolol Succinate ER 50 MG TAB.ER.24H PO (05:48)
[2024-08-18] MEDS: Flecainide Acetate 50 MG TABLET 300 MG PO (05:48)
[2024-08-18 06:18] LABS: Thyroid Stimulating Hormone 5.65 uIU/mL (0.32-4.0)
[2024-08-18 06:20] LABS: Partial Thromboplastin Time 29.3 SEC (26.0-36.8)
--- NOTE | 2024-08-18 06:44 | ECG_ITS ---
Test Reason : REPEAT Blood Pressure : */* mmHG Vent. Rate : 69 BPM Atrial Rate : 69 BPM P-R Int : 218 ms QRS Dur : 104 ms QT Int : 394 ms P-R-T Axes : 23 3 25 degrees QTcB Int : 422 ms Sinus rhythm with 1st degree A-V block with Premature supraventricular complexes Otherwise normal ECG When compared with ECG of 18-Aug-2024 05:00, Sinus rhythm has replaced Atrial fibrillation Vent. rate has decreased by 34 bpm Referred By: Brendan Preston Electronically Signed By: SAUD CR MD
[2024-08-18 06:53] VITALS: BP 125/81; PULSE 65; RESP 18; TEMP 36.5; O2SAT 97
[2024-08-18 07:48] LABS: T4 Thyroxine 7.1 ug/dL (4.5-12.0)
[2024-08-18] MEDS: Apixaban 5 MG TABLET PO (07:48)
--- NOTE | 2024-08-18 10:01 | PC.NURSE ---
Pt SR per tele with occ. PAC's; pt ambulated to/from BR; SR with PAC's upon return to room; pt denies any palpitations at this time; no CP/SOB/dizziness reported; awaiting final EKG and disposition
[2024-08-18 10:27] VITALS: BP 119/70; PULSE 59; RESP 18; TEMP 36.5; O2SAT 97
== END 2024-08-18 10:29 | disposition home or self-care (01) ==
PROVIDERS: Emergency Provider Emergency Medicine Emergency Medical Services; PCP Internal Medicine
DX: I48.0 Paroxysmal atrial fibrillation (principal); I49.9 Cardiac arrhythmia, unspecified; R00.2 Palpitations; I10 Essential (primary) hypertension
CPT/HCPCS: 36415; 71045; 80053; 83690; 83735; 84436; 84443; 84484; 85025; 85610; 85730; 93005; 99284; 99285

== ENCOUNTER → 2024-08-18 04:52 | Outpatient (BNV) | payer MEDICARE, OTHER, SELFPAY | PROVIDERS: Emergency Provider Emergency Medicine Emergency Medical Services; PCP Internal Medicine; Visit Provider Internal Medicine Cardiovascular Disease | DX: I48.91 Unspecified atrial fibrillation (principal); I44.0 Atrioventricular block, first degree; I49.1 Atrial premature depolarization | CPT/HCPCS: 93010 ==

== ENCOUNTER → 2024-08-18 04:52 | Outpatient (BNV) | payer MEDICARE, OTHER, SELFPAY | PROVIDERS: Emergency Provider Emergency Medicine Emergency Medical Services; PCP Internal Medicine; Visit Provider Radiology Diagnostic Radiology | DX: I48.91 Unspecified atrial fibrillation (principal) | CPT/HCPCS: 71045 ==

== ENCOUNTER 2024-09-24 09:27 | Outpatient (AMB) | payer MEDICARE, OTHER, SELFPAY ==
--- NOTE | 2024-09-24 10:05 | AM.OFFWIN_ITS ---
Intake Vital Signs 09/24/24 10:06 Weight 235 lb BP 112/70 Blood Pressure Location Rt brachial Position Sitting Pulse 50 Pulse Source Pulse Oximeter Pulse Oximetry (%) 98 Oxygen Delivery Method Room Air Intake Visit Reasons: EP RT hip pain Intake Note: Patient here for right hip pain. Patient Tobacco Use Status: Former Tobacco user Allergies bactrim Allergy (Intermediate, Verified 09/24/24 10:07) swelling, hives contrast dye Allergy (Intermediate, Verified 09/24/24 10:07) swelling of ear oxycodone Allergy (Intermediate, Verified 09/24/24 10:07) shaky/nausea sulfamethoxazole [From BACTRIM] Allergy (Intermediate, Verified 09/24/24 10:07) HIVES trimethoprim [From BACTRIM] Allergy (Intermediate, Verified 09/24/24 10:07) HIVES Do you need a note to return to daycare/school/sports/work: No HPI HPI Comments History of Present Illness Details This is a 69-year-old female with a past medical history of hypertension and atrial fibrillation currently maintained on Eliquis presenting for evaluation of right hip pain that she has had for the past 1 year. Patient states that she has previously had x-ray imaging which revealed ?degenerative changes?. Patient engaged in physical therapy in June and July 2024 with moderate improvement of her symptoms. Patient was traveling internationally in August and on August 27 she had a trip and fall in [facility] when she fell onto her right knee and she states that her right hip pain has worsened since that time. Patient has been taking Tylenol [id number] without relief of her discomfort. Patient notes having difficulty especially when climbing stairs. Patient is no longer engaged in physical therapy at this time. [facility] Medical History (Updated 09/24/24 @ 10:43 by Olga Gregory PA-C) History of Papanicolaou smear of cervix History of atrial fibrillation Degenerative joint disease of right hip Obesity (BMI 30-39.9) Benign positional vertigo Bilateral renal stones Sinus bradycardia by electrocardiogram Ureterolithiasis Pain, foot, right, chronic Tibia and fibula open fracture, right Essential hypertension Mixed dyslipidemia Surgical History Hx of colonoscopy History of shoulder surgery History of ankle surgery Family History Father CVD (cardiovascular disease) Maternal Aunt Colon cancer Maternal Uncle Colon cancer Brother No problems noted. Brother No problems noted. Sister No problems noted. Sister No problems noted. Son No problems noted. Daughter No problems noted. Social History Housing: House Are you a primary manager care management to a significant other at home: No Do you presently have visiting nurse or other home services: No Alcohol intake: current Alcohol intake frequency: holidays/special occasions only Alcohol type: wine Patient Tobacco Use Status: Former Tobacco user e-Cigarette/Vaping Use: Never Used Advance Directives Date on File: 06/06/24 service: No Current occupational status: retired Cognitive needs: No Hearing needs: No Vision needs: Yes Review of Systems Const All systems reviewed & are unremarkable except as noted in HPI and below Reports as per HPI, Denies frequent falls and Denies weakness Eyes Reports no additional complaints ENT Reports no additional complaints Card Reports no additional complaints Resp Reports no additional complaints GI Reports no additional complaints Reports no additional complaints Musc Reports no additional complaints, Denies abnormal gait, Reports arthralgias (right hip), Denies limited range of motion, Denies muscle weakness, Denies numbness, Denies radiating pain into limb and Denies tingling Skin/Breast Reports as per HPI Neuro Reports as per HPI, Denies abnormal gait, Denies frequent falls, Denies numbness, Denies tingling and Denies weakness Psych Reports as per HPI Endo Reports as per HPI Ken/Lymph Reports as per HPI Aller/Immun Reports as per HPI Physical Exam Vital Signs: Last Vital Signs Pulse 50 09/24/24 10:06 BP 112/70 09/24/24 10:06 Pulse Ox 98 09/24/24 10:06 Oxygen Delivery Method Room Air 09/24/24 10:06 Const General: cooperative, healthy appearing, comfortable, no acute distress, well developed, alert, awake and Physically active; No acute distress Nutritional Appearance: overweight Orientation/consciousness: patient oriented x3 Limitations: no limitations (ambulating independently) Skin General skin exam: no rashes or lesions noted Neuro General: patient oriented x3 Extrem Other: Sensation intact distal lower extremities bilaterally General: Yes normal to inspection, Yes no calf tenderness, Yes normal gait and No calf tenderness Right lower extremity: normal to inspection, full ROM, no joint enlargement and hip/thigh (pain to palpation right lateral hip, ROM intact) Details: normal to inspection, abnormal to inspection, tenderness Location: of the hip Location: laterally and normal ROM; no swelling Psych Appearance: grossly normal Mental Status: mental status grossly normal Insight: Good insight present (Psych) Judgement: Good judgement present (Psych) Assessment & Plan Assessment & Plan (1) Chronic right hip pain: Comment: Given this patient's history coupled with her examination patient's symptoms are most likely consistent with a right hip bursitis vs. tendonitis. Patient will be prescribed prednisone in a tapering fashion and follow-up with Dr. Oliver to receive a referral back for physical therapy consultation. Code(s): M25.551 - Pain in right hip; G89.29 - Other chronic pain Plan: Prednisone 20 mg to be taken any tapering fashion over the next 9 days; physical therapy for ongoing management. Patient will follow up with her PCP to receive this referral. Medications: New prednisone 20 mg orally 60mg x 3 days, 40mg x 3 days, 20mg x 3 days; 18 tabs 0RF Coding Level of Care Code Est Pt Level 3 (79018) Diagnoses Chronic right hip pain M25.551; G89.29 Time Spent (min) 20
[2024-09-24 10:06] VITALS: BP 112/70; PULSE 50; O2SAT 98
--- OUTSIDE RECORDS SUMMARY | 2024-09-24 10:24 | XMS_ITS ---
Author Organization [facility] Address [address] [place] [address] Care Team Providers Care Split Leather Mosser Name Role Phone Melody CHA, Karie Primary Care Provider Phillip Mckeon Unavailable [phone] REASON FOR VISIT screening, fam hx colon ca Problems Problem Type SNOMED Code ICD Code Onset Dates Problem Status W/U Status Risk Notes Problem Diverticular disease of colon (459315588) Diverticulosis of large intestine without perforation or abscess without bleeding (K57.30) Active confirmed Encounters Encounter Location Date Provider Diagnosis [facility] Outpatient [address], [place] [id number] 04/17/2024 Phillip Hernandez Colon cancer scree zachary [...] JOSE MANUEL VASQUEZ GDOB:1955 (69 yo F)Acc No.[id number]:04/17/2024 COLON WITH MAC Patient:?JOSE MANUEL VASQUEZ Provider:?Phillip Hernandez MD :1955???Age:68 Y???Sex:Female D ate:04/17/2024 Address:[address] [place] [address], [place], [id number] Pcp:Karie Oliver MD Subjective: * Chief Complaints: * ???1. Screening, fam hx colo n ca. * Medical History:? Objective: * Vitals:? Assessment: * Assessment: 1.?Colon cancer screening - Z12.11 (Primary)???2.?Family history of colon cancer - Z80.0???3.?Diverticulosis of large intestine without perforation or abscess without bleeding - K57.30???4.?Other hemorrhoids - K64.8??? Plan: * Treatment: * Procedure Codes:?G0105 COLOR EC CANCR SCR; COLNSCPY HI RISK, 0529F INTRVL 3+YRS PTS CLNSCP DOCD, 0528F RCMND FLW-UP 10 YRS DOCD, Modifiers: 1P * * The named appointment provid er may or may not be the originator of this progress note, and it is not deemed complete until electronically signed by the appointment provider. Sign off status: Pending * Provider:?Phillip Hernandez MD Date:? 024 Generated for Pradeep garcia/Mendoza/eTransmitting on:?09/24/2024 10:23 AM EDT
--- OUTSIDE RECORDS SUMMARY | 2024-09-24 10:24 | XMS_ITS | Patient Health Record ---
Author Organization [facility] Address [address] [place] [address] Care Team Providers Care Work Ticket Distributor Name Role Phone Melody CHA, Karie Primary Care Provider Phillip Mckeon Unavailable [phone] Allergies Allergen (clinical drug ingredient) Drug/Non Drug Allergy documented on EMR Reaction Allergy Type Onset Date Status sulfamethoxazole / trimethoprim Bactrim Unknown Drug Allergy Active contast dye (uncoded) Unknown Allergy Active Reason For Referral No Information Medications Medication SIG (Take, Route, Frequency, Duration) Notes [...] LORazepam 0.5mg prn when she flies Active Immunizations Vaccine Route Administration Date Status Comme nts Influenza Unknown 03/14/2023 Administered Problems Problem Type SNOMED Code ICD Code Onset Dates Problem Status W/U Status Risk Notes Problem Screening for malignant neoplasm of colon (971584167) Encounter for screening for malignant neoplasm of colon (Z12.11) Active confirmed Problem Pre-procedure evaluation check (360272353) Encounter for other preprocedural examination (Z01.818) Active confirmed Problem Diverticulosis o f large intestine without perforation or abscess without bleeding (K57.30) Active confirmed Problem Long-term current use of aspirin (0772930751903 03) Aspirin long-term use (Z79.82) Active confirmed Problem Family History of Cancer of Colon (Situation) (830846181) Family history of colon cancer (Z80.0) Active confirmed Vital Signs Temperature 98.0 degrees Fahrenheit 01/17/2024 Blood pressure diastolic 00 mm Hg 01/17/2024 Height 65 in 01/17/2024 Blood pressure systolic 000 mm Hg 01/17/2024 Weight 229 lb 8 oz lbs 01/17/2024 BMI 38.19 kg/m2 01/17/2024 Encounters Encounter Location Date Provider Diagnosis [facility] Outpatient [address] [place], [place] [phone] 04/17/2024 Phillip Hernandez Colon cancer screeni ng Z12.11 ; Family history of colon cancer Z80.0 ; Diverticulosis of large intestine without perforation or abscess without bleeding K57.30 and Other hemorrhoids K64.8 [facility] [address] [place] [phone] 01/17/2024 Phillip Hernandez Encounter for screen ing for malignant neoplasm of colon Z12.11 ; Aspirin long-term use Z79.82 ; Family history of colon cancer Z80.0 and Encounter for other preprocedural examination Z01.818 [facility] [address] [place] [phone] 09/25/2023 Phillip Hernandez Assessments Encounter Date Diagnosis (ICD Code) Assessment [...] or on the day of the colonosocpy Overall, Sally appears well. Given her age, good clinical appearance, significant family history colorectal cancer, and her last colonoscopy being over 10 years ago, I did recommend a followup colonoscopy for further screening purposes. We did review the rationale for this in regard to colon cancer prevention. Full consent was obtained from her for this, including risks of bleeding and perforation. She was given the below instructions regarding adjustment of her medications for the procedure. We did review that even if this colonoscopy is negative I would recommend a followup colonoscopy for 5 years thereafter given the significant family history. Sally was comfortable with this plan. Thank you again for allowing me to participate in Sally's care. I shall continue to keep you advised of her progress. 01/17/2024 Aspirin long-term use (ICD-10 - Z79.82) Overall, Sally appears well. Given her age, good clinical appearance, significant family history colorectal cancer, and her last colonoscopy being over 10 years ago, I did recommend a followup colonoscopy for further screening purposes. We did review the rationale for this in regard to colon cancer prevention. Full consent was obtained from her for this, including risks of bleeding and perforation. She was given the below instructions regarding adjustment of her medications for the procedure. We did review that even if this colonoscopy is negative I would recommend a followup colonoscopy for 5 years thereafter given the significant family history. Sally was comfortable with this plan. Thank you again for allowing me to participate in Sally's care. I shall continue to keep you advised of her progress. 04/17/2024 Diverticulosis of large intestine without perforation or abscess without bleeding (ICD-10 - K57.30) 01/17/2024 Family history of colon cancer (ICD-10 - Z80.0) Overall, Sally appears well. Given her age, good clinical appearance, significant family history colorectal cancer, and her last colonoscopy being over 10 years ago, I did recommend a followup colonoscopy for further screening purposes. We did review the rationale for this in regard to colon cancer prevention. Full consent was obtained from her for this, including risks of bleeding and perforation. She was given the below instructions regarding adjustment of her medications for the procedure. We did review that even if this colonoscopy is negative I would recommend a followup colonoscopy for 5 years thereafter given the significant family history. Sally was comfortable with this plan. Thank you again for allowing me to participate in Sally's care. I shall continue to keep you advised of her progress. 04/17/2024 Other hemorrhoids (ICD-10 - K64.8) 01/17/2024 Encounter for other preprocedural examination (ICD-10 - Z01.818) Overall, Sally appears well. Given her age, good clinical appearance, significant family history colorectal cancer, and her last colonoscopy being over 10 years ago, I did recommend a followup colonoscopy for further screening purposes. We did review the rationale for this in regard to colon cancer prevention. Full consent was obtained from her for this, including risks of bleeding and perforation. She was given the below instructions regarding adjustment of her medications for the procedure. We did review that even if this colonoscopy is negative I would recommend a followup colonoscopy for 5 years thereafter given the significant family history. Sally was comfortable with this plan. Thank you again for allowing me to participate in Sally's care. I shall continue to keep you advised of her progress. Plan Of Treatment Future Test Test Name Order Date COLONOSCOPY 06/25/2013 COLONOSCOPY 01/17/2024 Insurance Providers Payer Name Payer Address Payer Phone Subscriber Number Group Number Insured Name Patient Relationship to Insured Coverage Start Date Coverage End Date MEDICARE OF [place] [address] [facility] [id number] JOSE MANUEL VASQUEZ Self - patient is the insured [id number] Insurance ([place]) [address] [place] [address] [id number] JOSE MANUEL VASQUEZ Self - patient is the insured Medical (General) History Medical History History ICD Code Colonoscopy 06-04-2008--neg e xcept for sigmoid diverticulosis and internal hemorrhoids. 2 episodes of A. fib--last time was in 2 012 Hypertension Denies ND,DM,CVA,Lung disease,renal dise ase Negative colonoscopy in August 2013 Surgical History Surgery Date(Month/Year) Ankle surgery Varicose vein surgery Right shoulder
--- OUTSIDE RECORDS SUMMARY | 2024-09-24 10:24 | XMS_ITS ---
Author Organization [facility] Address [address] [place] [address] Care Team Providers Care Fire Official Name Role Phone Melody CHA, Karie Primary Care Provider Phillip Mckeon [phone] REASON FOR VISIT Patient presents today for a screening colonoscopy Encounters Encounter Location Date Provider Diagnosis [facility] [address] [place] [phone] 10/05/2023 Phillip Hernandez Plan Of Treatment No Information Progress Notes * CHRISTINA JOSE MANUEL GDOB:1955 (69 yo F)Acc No.[id number]:10/05/2023 Progress Notes Patient:?JOSE MANUEL VASQUEZ Provider:?Phillip Hernandez MD :1955???Age:68 Y???Sex:Female D ate:10/05/2023 Address:[address] [place], [place] [id number] Pcp:Karie Oliver MD Subjective: * Chief Complaints: * ???1. Patient presents today for a screening colonoscopy. * Medical History:? Objective: * Vitals:? Assessment: Plan: * Treatment: * * The named appointment provid er may or may not be the originator of this progress note, and it is not deemed complete until electronically signed by the appointment provider. Sign off status: Pending * Provider:?Phillip Hernandez MD Date:? 024 Generated for Pradeep garcia/Mendoza/eTransmitting on:?09/24/2024 10:24 AM EDT
--- OUTSIDE RECORDS SUMMARY | 2024-09-24 10:24 | XMS_ITS ---
Author Organization [facility] Address [address] [place] [address] Care Team Providers Care Plastics Production Machine Operator Name Role Phone Meoldy CHA, Karie Primary Care Provider Phillip Mckeon Unavailable [phone] Allergies Allergen (clinical drug ingredient) Drug/Non Drug Allergy documented on EMR Reaction Allergy Type Onset Date Status sulfamethoxazole / trimethoprim Bactrim Unknown Drug Allergy Active contast dye (uncoded) Unknown Allergy Active REASON FOR VISIT Patient presents today for a colon screening Medications Medication SIG (Take, Route, Frequency, Duration) [...] Once a day for 30 day(s) Active Social History Tobacco Use: Social History Observation Description Date Details (start date - stop date) Never Smoker NA - NA Tobacco Use/Smoking Question Answer Notes Patient is [...] to 3 times a week (3 points) Section Notes: Nonsmoker; no sig alcohol Problems Problem Type SNOMED Code ICD Code Onset Dates Problem Status W/U Status Risk Notes Problem Screening for malignant neoplasm of colon (678735782) Encounter for screening for malignant neoplasm of colon (Z12.11) Active confirmed Problem Family History of Cancer of Colon (Situation) (989272807) Family history of colon cancer (Z80.0) Active confirmed Problem Pre-procedure evaluation check (086308473) Encounter for other preprocedural examination (Z01.818) Active confirmed Problem Long-term current use of aspirin (6346794315836 03) Aspirin long-term use (Z79.82) Active confirmed Vital Signs Temperature 98.0 degrees Fahrenheit 01/17/20 24 Blood pressure systolic 000 mm Hg 01/17/20 24 Blood pressure diastolic 00 mm Hg 024 Height 65 in 01/17/2024 Weight 229 lb 8 oz lbs 01/17/2024 BMI 38.19 kg/m2 01/17/2024 Encounters Encounter Location Date Provider Diagnosis [facility] [address] [place] [address] 01/17/2024 Phillip Hernandez Encounter for screen ing for malignant neoplasm of colon Z12.11 ; Aspirin long-term use Z79.82 ; Family history of colon cancer Z80.0 and Encounter for other preprocedural examination Z01.818 Assessments Encounter Date Diagnosis (ICD Code) Assessment Notes Treatment Notes Treatment Clinical Notes Section Notes 01/17/2024 Encounter for screening for malignant [...] keep you advised of her progress. 01/17/2024 Family history of colon cancer (ICD-10 [...] keep you advised of her progress. 01/17/2024 Encounter for other preprocedural examination (ICD-10 [...] advised of her progress. Plan Of Treatment Treatment Notes Assessment Notes Encounter for screening for malignant neoplasm of colon Stop aspirin for 1 week before the colonoscopy. Do not use the Hydrochlorothiazide the day before or on the day of the colonosocpy Future Test Test Name Order Date COLONOSCOPY 01/17/2024 Next Appt Details Follow Up: prn, Reason: Progress Notes * JOSE MANUEL VASQUEZ GDOB:1955 (68 yo F)Acc No.[id number]:01/17/2024 Progress Notes Patient:?JOSE MANUEL VASQUEZ Provider:?Phillip Hernandez MD :1955???Age:68 Y???Sex:Female D ate:01/17/2024 Address:[address] [place] [address] Pcp:Karie Oliver MD Subjective: * Chief Complaints: * ???Patient presents today fo r a colon screening * HPI: ???incontinence:? I saw Sally in the office today for evaluation of her family history of colorectal cancer and the need for colon cancer screening. ?I last saw Sally in August of 2013, at which time she underwent a negative screening colonoscopy. She also had a negative screening colonoscopy in 2008. Her family history is notable for her mother having had colon cancer in her late 90s, a maternal aunt and uncle having had colon cancer, and a maternal grandmother having had some type of intra-abdominal malignancy. Sally presently feels very well. She enjoys a good appetite, without any significant heartburn or dysphagia. Her bowel movements have been regular and without any signs of bleeding. She denies any abdominal pain, jaundice, nor unintentional weight loss. * ROS:?General/Constitutional:?Change in appetite?denies.?Chills?denies.?Fatigue?denies.?Ophthalmologic:?Patient denies? Negative..?ENT:?Patient denies?Negative..?Respiratory:?Patient denies?No coughing/hemoptysis..?Cardiovascular:?Patient denies? No chest pain/orthopnea..?Gastrointestinal:?Comments?See HPI for details.?Genitourinary:?Patient denies? No dysuria/hematuria..?Musculoskeletal:?Patient denies? No specific arthralgias/myalgias..?Skin:?Patient denies?No rash/pruritus..?Neurologic:?Patient denies? No headaches/seizures..?Psychiatric:?Patient denies?Negative..? * Medical History:? * Surgical History:?Ankle surg ashlee Varicose vein surgery Right shoulder * Hospitalization/Major Diagno stic Procedure:?No Hospitalization History. * Family History:?Father: dece ased, diagnosed with Heart disease.?Mother: , diagnosed with Colon cancer.?Maternal Grand Father: , diagnosed with Colon cancer.? Her maternal aunt and maternal uncle had colon cancer in their 60s and 70s.Mom had colon cancer at age 98. Mother's mother had an abdominal mass but didn't do anything. No family history of liver cancer. * Social History:?Tobacco Use:?Tobacco Use/Smoking?Patient is a?nonsmoker.?Drugs/Alcohol:?Alcohol Screen?Did you have a drink containing alcohol in the past year??Yes,?How often did you have 6 or more drinks on one occasion in the past year??Never (0 point),?How many drinks did you have on a typical day when you were drinking in the past year??1 or 2 drinks (0 point),?How often did you have a drink containing alcohol in the past year??2 to 3 times a week (3 points),?Points?3,?Interpretation?Positive.?Miscellaneous:?Marital status: . 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 ???Nonsmoker; no sig alcohol. * Medications:?TakingAllegra A llergy 180 MG Tablet 1 tablet Swallow whole with water; do not take with fruit juices. Orally Once a dayFlonase Allergy Relief 50 MCG/ACT Suspension 1 spray in each nostril Nasally Once a dayAtenolol 50mg hydroCHLOROthiazide 12.5mg Aspirin 81 MG Tablet Chewable 1 tablet Orally Once a dayLORazepam 0.5mg prn, Notes: when she fliesValtrex Taking Asya Allergy 180 MG Tablet 1 tablet Swallow whole with water; do not take with fruit juices. Orally Once a dayTaking Flonase Allergy Relief 50 MCG/ACT Suspension 1 spray in each nostril Nasally Once a dayTaking Atenolol 50mg Taking hydroCHLOROthiazide 12.5mg Taking Aspirin 81 MG Tablet Chewable 1 tablet Orally Once a dayTaking LORazepam 0.5mg prn, Notes: when she fliesTaking Valtrex DiscontinuedZyrTEC Allergy 10mg MoviPrep 100 GM Solution Reconstituted as directed Orally Medication List reviewed and reconciled with the patientDiscontinued ZyrTEC Allergy 10mg Discontinued MoviPrep 100 GM Solution Reconstituted as directed Orally Medication List reviewed and reconciled with the patient * Allergies:?Bactrimcontast dy eyes[Allergies Verified] Objective: * Vitals:?Wt: 229 lb 8 oz, Ht: 65 in, BMI:38.19 Index, BP: 000/00 mm Hg, Temp: 98.0. * Examination: ???General Examination: ?GENERAL APPEARANCE:?pleasant, well nourished, well developed, in no acute distress.?EYES:?sclera non-icteric.?ORAL CAVITY:?mucosa moist.?NECK/THYROID:?no cervical lymphadenopathy, neck supple.?SKIN:?nonjaundiced, no spider angiomata..?HEART:?S1, S2 normal.?LUNGS:?clear to auscultation bilaterally.?ABDOMEN:?normal bowel sounds, no guarding or rigidity, no hepatosplenomegaly, no masses palpable, soft, nontender, nondistended..?EXTREMITIES:?no edema.?NEUROLOGIC:?alert and oriented.? Assessment: * Assessment: 1.?Aspirin long-term use - Z 79.82 (Primary)?2.?Encounter for screening for malignant neoplasm of colon - Z12.11?3.?Family history of colon cancer - Z80.0?4.?Encounter for other preprocedural examination - Z01.818? Overall, Sally appears well. Given her age, [...] to keep you advised of her progress. Plan: * Treatment: Notes: Stop aspirin for 1 week before the colonoscopy. Do not use the Hydrochlorothiazide the day before or on the day of the colonosocpy??2.?Family history of colon cancer?Procedure: COLONOSCOPY (Ordered for 01/17/2024)* with MACsched for 04/17/24 a t 9:30 ammiralax * Procedure Codes:?3017F COLOR ECTAL CA SCREEN DOC [id number] TOBACCO [id number] BP SCR NOT PRFRM REC REASON NOS * Preventive Medicine:? ??Counseling:?Care goal follow-up plan:?Above Normal BMI Follow-up?Giving encouragement to exercise,?BMI management provided?Yes.? ??Urinary Incontinence:?Urinary Incontinence?Assessment:?Absent,?Plan of care documented:?No, reason not specified.? ??Screenings:?Fall Risk Screening?Fall Risk Assessment:?No falls in the past year.? * Follow Up:?prn * * Sign off status: Completed true * Provider:?Phillip Hernandez MD Date:? 024 Generated for Pradeep garcia/Mendoza/Nazia on:?09/24/2024 10:24 AM EDT History and Physical Notes * HPI (History of Present Illness) Category Sub-Category Detail Notes Category Not es incontinence I saw Sally in the office today for evaluation of her family history of colorectal cancer and the need for colon cancer screening. I last saw Sally in August of 2013, at which time she underwent a negative screening colonoscopy. She also had a negative screening colonoscopy in 2008. Her family history is notable for her mother having had colon cancer in her late 90s, a maternal aunt and uncle having had colon cancer, and a maternal grandmother having had some type of intra-abdominal malignancy. Sally presently feels very well. She enjoys a good appetite, without any significant heartburn or dysphagia. Her bowel movements have been regular and without any signs of bleeding. She denies any abdominal pain, jaundice, nor unintentional weight loss. Examination Category Sub-Category Detail Notes Category Not es General Examination GENERAL APPEARANCE: pleasant , well [...]
--- OUTSIDE RECORDS SUMMARY | 2024-09-24 10:24 | XMS_ITS | Patient Health Record ---
Author Organization [facility] Address [address] [place] [address] Care Team Providers Care Conference Interpreter Name Role Phone Melody CHA, Karie Lora Primary Care Provider Un available Black, Manju Unavailable [phone] Allergies Allergen (clinical drug ingredient) Drug/Non Drug Allergy documented on EMR Reaction Allergy Type Onset Date Status sulfamethoxazole / trimethoprim Bactrim hives, swelling Drug Allergy Active injectable steriods syncope Drug Allergy Active Iodinated contrast media (substance) Iodinated Diagnostic Agents fainted Drug Allergy Active Reason For Referral No Information Medications Medication SIG (Take, Route, Frequency, Duration) Notes Start Date End Date Status hydroCHLOROthiazide 12.5 MG 1 capsule Or ally Once a day Active Multivitamin - 1 tablet Orally Once a day Active valACYclovir HCl 500 MG 1 tablet Orally Once a day Active Vitamin B6 100 MG 1 tablet Orally Once a day Active Vitamin D3 125 MCG (5000 UT) as directed Orally Active Ammonium Lactate 12 % 1 application to affected area Externally to feet Twice a day for 30 days Active ASA 325mg Unknown Valtrex 500 MG Orally Unkno wn Physical Therapy 3-4x per week for 3- 4 weeks 04/27/2017 Unknown Aspirin 81 MG Orally Active Asya Unknown Atenolol 50 MG 1 tablet Orally Once a day Active Social History Tobacco Use: Social History Observation Description Date Details (start date - stop date) Former Smoker NA - NA Tobacco Use/Smoking Question Answer Notes Are you a: former smoker Additional Findings: Tobacco Non-User Current no n-smoker Alcohol Screen Question Answer Notes Did you have a drink contain ing alcohol in the past year? Yes How often did you have a dri nk containing alcohol in the past year? 2 to 4 times a month (2 points) Points 2 Interpretation Negative Tobacco use other than smoking: Question Answer Notes Are you an other tobacco user? No Problems Problem Type SNOMED Code ICD Code Onset Dates Problem Status W/U Status Risk Notes Problem [id number] Plantar wart of left foot (B07.0) Active confirmed Plan Of Treatment Pending Test Test Name Order Date [id number] Destruction, 06-0411/07/2022 [id number]-Ntvc Destruction, 06-0412/19/2022 09186- Debride <25 sq cm 09/24/2013 Insurance Providers Payer Name Payer Address Payer Phone Subscriber Number Group Number Insured Name Patient Relationship to Insured Coverage Start Date Coverage End Date [employer] ([facility]) [address] [place] [id number] Terra Martel Self - patient is the insured Medical (General) History Medical History History ICD Code Broken bones Hypertension Chicken pox Measles Mumps Joint implants/screws Depression High blood pressure Reflux ( GERD) chronic sinusitis Atrial fibrillation covid-19 Kidney stones Plantar fasciitis Surgical History Surgery Date(Month/Year) R ankle surgery 2001 varicose vein stripping 2007/2009 colonoscopy 2014 R shoulder 2016
== END 2024-09-24 10:56 | disposition home or self-care (01) ==
PROVIDERS: PCP Internal Medicine; Visit Provider Physician Assistant
DX: M25.551 Pain in right hip (principal); G89.29 Other chronic pain

== ENCOUNTER → 2024-09-24 09:27 | Outpatient (BNVA) | payer MEDICARE, OTHER, SELFPAY | PROVIDERS: PCP Internal Medicine; Visit Provider Physician Assistant | DX: M25.551 Pain in right hip (principal); G89.29 Other chronic pain | CPT/HCPCS: 99212 ==

== ENCOUNTER 2024-09-26 13:33 | Outpatient (REF) | payer MEDICARE, OTHER, SELFPAY ==
--- NOTE | ~2024-09-26 | XR_ITS ---
EXAMINATION: XR HIP, RIGHT CLINICAL INFORMATION: M25.551 - Pain in right hip COMPARISON: March 13, 2024. TECHNIQUE: Two views of the right hip. FINDINGS: No acute cortical disruption or malalignment. No lytic or blastic lesions. No joint space narrowing. Sclerosis and the right sacroiliac joint. No subcutaneous emphysema. XR/XR hip RT min 2V IMPRESSION: No acute fracture or dislocation. Negative exam. Electronically signed by: Josué Ross MD 09/26/2024 02:25 PM EDT
--- OUTSIDE RECORDS SUMMARY | 2024-09-26 14:35 | XMS_ITS ---
Author Organization [facility] Address [address] [place] [address] Care Team Providers Care Screen Tender Helper Name Role Phone Melody CHA, Karie Primary Care Provider Phillip Mckeon Unavailable [phone] REASON FOR VISIT screening, fam hx colon ca Problems Problem Type SNOMED Code ICD Code Onset Dates Problem Status W/U Status Risk Notes Problem Diverticulosis o f large intestine without perforation or abscess without bleeding (K57.30) Active confirmed Encounters Encounter Location Date Provider Diagnosis [facility] Outpatient [address] [place], [place] [phone] 04/17/2024 Phillip Hernandez Colon cancer scree zachary [...] JOSE MANUEL VASQUEZ GDOB:1955 (69 yo F)Acc No.[id number]:04/17/2024 COLON WITH MAC Patient:?JOSE MANUEL VASQUEZ Provider:?Phillip Hernandez MD :1955???Age:68 Y???Sex:Female D ate:04/17/2024 Address:[address] [place] [address], [place], [id number] Pcp:Karie Oliver MD Subjective: * Chief Complaints: [...] Hernandez MD Date:? 024 Generated for Pradeep garcia/Mendoza/Jessicasmitting on:?09/26/2024 02:35 PM EDT
--- OUTSIDE RECORDS SUMMARY | 2024-09-26 14:36 | XMS_ITS ---
Author Organization [facility] Address [address] [place] [address] Care Team Providers Care Motion Picture Set Up Worker Name Role Phone Melody CHA, Karie Primary Care Provider Phillip Mckeon Unavailable [phone] Allergies Allergen (clinical drug ingredient) Drug/Non Drug [...] Problem Screening for malignant neoplasm of colon (711105521) Encounter for screening for malignant neoplasm of colon (Z12.11) Active confirmed Problem Family History of Cancer of Colon (Situation) (218930437) Family history of colon cancer (Z80.0) Active confirmed Problem Pre-procedure evaluation check (639792683) Encounter for other preprocedural examination (Z01.818) Active confirmed Problem Long-term current use of aspirin (2898205830797 03) Aspirin long-term use (Z79.82) Active confirmed Vital Signs Temperature 98.0 degrees Fahrenheit 01/17/20 24 Blood pressure systolic 000 mm Hg 01/17/20 24 Blood pressure diastolic 00 mm Hg 024 Height 65 in 01/17/2024 Weight 229 lb 8 oz lbs 01/17/2024 BMI 38.19 kg/m2 01/17/2024 Encounters Encounter Location Date Provider Diagnosis [facility] [address] [place] [address] 01/17/2024 Phillip Hernandez Encounter for screen ing [...] JOSE MANUEL VASQUEZ GDOB:1955 (68 yo F)Acc No.[id number]:01/17/2024 Progress Notes Patient:?JOSE MANUEL VASQUEZ Provider:?Phillip Hernandez MD :1955???Age:68 Y???Sex:Female D ate:01/17/2024 Address:[address] [place] [address] Pcp:Karie Oliver MD Subjective: * Chief Complaints: [...] (3 points),?Points?3,?Interpretation?Positive.?Miscellaneous:?Marital status: . 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 ???Nonsmoker; no sig alcohol. * Medications:?TakingAllegra [...] Procedure Codes:?3017F COLOR ECTAL CA SCREEN DOC [id number] TOBACCO [id number] BP SCR NOT PRFRM REC REASON NOS * Preventive Medicine:? ??Counseling:?Care goal follow-up plan:?Above Normal BMI Follow-up?Giving encouragement to exercise,?BMI management provided?Yes.? ??Urinary Incontinence:?Urinary Incontinence?Assessment:?Absent,?Plan of care documented:?No, reason not specified.? ??Screenings:?Fall Risk Screening?Fall Risk Assessment:?No falls in the past year.? * Follow Up:?prn * * Sign off status: Completed true * Provider:?Phillip Hernandez MD Date:? 024 Generated for Pradeep garcia/Mendoza/Nazia on:?09/26/2024 02:35 PM EDT History and Physical Notes * HPI [...]
--- OUTSIDE RECORDS SUMMARY | 2024-09-26 14:36 | XMS_ITS | Patient Health Record ---
Author Organization [facility] Address [address] [place] [address] Care Team Providers Care Product Safety Associate Name Role Phone Melody CHA, Karie Lora Primary Care Provider Un available Black, Manju Unavailable [phone] Allergies Allergen (clinical drug ingredient) Drug/Non Drug [...] Problem Status W/U Status Risk Notes Problem [id number] Plantar wart of left foot (B07.0) Active confirmed Plan Of Treatment Pending Test Test Name Order Date 94340-Jthx Destruction, 06-0411/07/2022 38015-Spnd Destruction, 06-0412/19/2022 15064- Debride <25 sq cm 09/24/2013 Insurance Providers Payer Name Payer Address Payer Phone Subscriber Number Group Number Insured Name Patient Relationship to Insured Coverage Start Date Coverage End Date [employer] ([facility]) [address] [place] [id number] Terra Martel Self - patient is [...]
--- OUTSIDE RECORDS SUMMARY | 2024-09-26 14:36 | XMS_ITS | Patient Health Record ---
Author Organization [facility] Address [address] [place] [address] Care Team Providers Care Vinyl Welder And Fabricator Name Role Phone Melody CHA, Karie Primary Care Provider Phillip Mckeon Unavailable [phone] Allergies Allergen (clinical drug ingredient) Drug/Non Drug [...] Problem Screening for malignant neoplasm of colon (672697102) Encounter for screening for malignant neoplasm of colon (Z12.11) Active confirmed Problem Pre-procedure evaluation check (116018585) Encounter for other preprocedural examination (Z01.818) Active confirmed Problem Diverticular disease of colon (726500614) Diverticulosis of large intestine without perforation or abscess without bleeding (K57.30) Active confirmed Problem Long-term current use of aspirin (298046100146200 ) Aspirin long-term use (Z79.82) Active confirmed Problem Family History of Cancer of Colon (Situation) (611742171) Family history of colon cancer (Z80.0) Active confirmed Vital Signs Temperature 98.0 degrees Fahrenheit 01/17/2024 Blood pressure diastolic 00 mm Hg 01/17/2024 Height 65 in 01/17/2024 Blood pressure systolic 000 mm Hg 01/17/2024 Weight 229 lb 8 oz lbs 01/17/2024 BMI 38.19 kg/m2 01/17/2024 Encounters Encounter Location Date Provider Diagnosis [facility] [address] [place], [place] [id number] 04/17/2024 Phillip Hernandez Colon cancer screeni ng Z12.11 ; Family history of colon cancer Z80.0 ; Diverticulosis of large intestine without perforation or abscess without bleeding K57.30 and Other hemorrhoids K64.8 [facility] [address] [place] [address] 01/17/2024 Phillip Hernandez Encounter for screen ing [...] Date MEDICARE OF [place] [address] [place] [address] [id number] JOSE MANUEL VASQUEZ Self - patient is the insured [employer] ([email or web address]) [address] [place] [address] [id number] JOSE MANUEL VASQUEZ Self - patient is the insured Medical (General) History Medical History History ICD Code Colonoscopy 06-04-2008--neg e xcept for sigmoid diverticulosis and internal hemorrhoids. 2 episodes of A. fib--last time was in 2 012 Hypertension Denies RI,DM,CVA,Lung disease,renal dise ase Negative colonoscopy in August 2013 Surgical History Surgery Date(Month/Year) Ankle surgery Varicose vein surgery Right shoulder
--- OUTSIDE RECORDS SUMMARY | 2024-09-26 14:36 | XMS_ITS ---
Author Organization [facility] Address [address] [place] [address] Care Team Providers Care Student Specialist Name Role Phone Melody CHA, Karie Primary Care Provider Phillip Mckeon [phone] REASON FOR VISIT Patient presents today for a screening colonoscopy Encounters Encounter Location Date Provider Diagnosis [facility] [address] [place] [address] 10/05/2023 Phillip Hernandez Plan Of Treatment No Information Progress Notes * IRMAGREGORIO JOSE MANUEL GDOB:1955 (69 yo F)Acc No.[id number]:10/05/2023 Progress Notes Patient:?JOSE MANUEL VASQUEZ Provider:?Phillip Hernandez MD :1955???Age:68 Y???Sex:Female D ate:10/05/2023 Address:[address] [place], [place] [id number] Pcp:Karie Oliver MD Subjective: * Chief Complaints: [...] MD Date:? 024 Generated for Pradeep garcia/Mendoza/eTransmitting on:?09/26/2024 02:35 PM EDT
== END 2024-09-26 13:34 | disposition home or self-care (01) ==
LOC: HO.HMGCX 13:33
PROVIDERS: PCP Internal Medicine; Visit Provider Internal Medicine
DX: M25.551 Pain in right hip (principal); G89.29 Other chronic pain; Z91.81 History of falling
CPT/HCPCS: 73502

== ENCOUNTER → 2024-09-26 13:44 | Outpatient (BNV) | payer MEDICARE, OTHER, SELFPAY | PROVIDERS: PCP Internal Medicine; Visit Provider Radiology Diagnostic Radiology | DX: M25.551 Pain in right hip (principal) | CPT/HCPCS: 73502 ==

== ENCOUNTER 2024-12-11 09:28 | Outpatient (REF) | payer MEDICARE, OTHER, SELFPAY ==
--- OUTSIDE RECORDS SUMMARY | 2024-04-17 05:30 | XMS_ITS ---
Author Organization [facility] Address [address] [place] [address] Care Team Providers Care Ethanol Operations Manager Name Role Phone Melody CHA, Karie Primary Care Provider Phillip Mckeon Unavailable [phone] REASON FOR VISIT screening, fam hx colon ca Problems Problem Type SNOMED Code ICD Code Onset Dates Problem Status W/U Status Risk Notes Problem Diverticular disease of colon (331247453) Diverticulosis of large intestine without perforation or abscess without bleeding (K57.30) Active confirmed Encounters Encounter Location Date Provider Diagnosis [facility] [place] [address] [place] [phone] [place]/17/2024 Phillip Hernandez Colon cancer scree zachary [...] JOSE MANUEL VASQUEZ GDOB:1955 (69 yo F)Acc No.[id number]:04/17/2024 COLON WITH MAC Patient: JOSE MANUEL INIGUEZ Provider: Jonna Hernandez MD :1955 A ge:68 Y S ex:Female Date:04/17/2024 Address:[address] [place] [address] Pcp:Karie Oliver MD Subjective: * Chief Complaints: [...] Pending * Provider: Jonna Hernandez MD Date: 06/17/2023 Generated for Pradeep garcia/Mendoza/Anoopitting on: 0 12/11/2024 09:59 AM EDT
--- NOTE | ~2024-12-11 | US_ITS ---
EXAMINATION: US RETROPERITONEAL LIMITED (RENAL ONLY) CLINICAL INFORMATION: Calculus of kidney.. COMPARISON: None available. TECHNIQUE: Routine retroperitoneal imaging of kidneys is performed. FINDINGS: RIGHT KIDNEY: 12.3 x 4.7 x 5.5 cm (SAG x AP x TRV). The kidney is normal in size, contour, and echogenicity. Renal cortical thickness is normal. There is a hypertrophic column of Devin in midpole. No calculi or focal parenchymal lesions. No hydronephrosis. LEFT KIDNEY: 12.7 x 5.0 x 5.7 cm (SAG x AP x TRV). The kidney is normal in size, contour, and echogenicity. Renal cortical thickness is normal. No calculi or focal parenchymal lesions. No hydronephrosis. US/US renal BI IMPRESSION: Prominent column of Devin in midpole right kidney. No radiopaque urolith or hydroureteronephrosis.. Electronically signed by: Romie Jeter MD 12/11/2024 10:14 AM EDT
--- OUTSIDE RECORDS SUMMARY | 2024-12-11 09:59 | XMS_ITS | Patient Health Record ---
Author Organization [facility] Address [address] [place] [address] Care Team Providers Care Director Ehs Name Role Phone Melody CHA, Karie Lora Primary Care Provider Un available Black, Manju Unavailable [phone] Allergies Allergen (clinical drug ingredient) Drug/Non Drug [...] affected area Externally to feet Twice a day; Duration: 30 days Active ASA 325mg Unknown Valtrex [...] Problem Status W/U Status Risk Notes Problem Plantar wart of left foot (560872775643 27174) Plantar wart of left foot (B07.0) Active confirmed Plan Of Treatment Pending Test Test Name Order Date [id number] Destruction, 06-0411/07/2022 [id number] Destruction, 06-0412/19/2022 49407- Debride <25 sq cm 09/24/2013 Insurance Providers Payer Name Payer Address Payer Phone Subscriber Number Group Number Insured Name Patient Relationship to Insured Coverage Start Date Coverage End Date [facility] [address] [place] [address] [id number] Terra Martel Self - patient is the insured Medical (General) History Medical History History ICD Code Broken bones Hypertension Chicken pox Measles Mumps Joint implants/screws Depression High blood pressure Reflux ( GERD) chronic sinusitis Atrial fibrillation covid-19 Kidney stones Plantar fasciitis Surgical History Surgery Date(Month/Year) R ankle surgery 2001 varicose vein stripping colonoscopy 2013 R shoulder 2016
--- OUTSIDE RECORDS SUMMARY | 2024-12-11 09:59 | XMS_ITS | Clinical Summary ---
Author Organization [facility] Address [address] [place] [address] Phone Care Team Providers Care Location Manager Name Role Phone Karie Oliver MD Primary Care Provider Allergies Active Allergy Reactions Criticality Noted Date Comments Iodinated Contrast Media Syncope,Itching ,Swe lling High 09/24/2024 Sulfamethoxazole Hives,Itching,Rash, Swelling Low 09/24/2024 Sulfamethoxazole-Trimethop rim 09/24/2024 Other Reaction(s): hives, swelling Medications atenolol (TENORMIN) 50 mg tablet Take 50 mg by mouth daily. Active hydroCHLOROthia zide 12.5 mg capsule Take 12.5 mg by mouth daily. Active LORazepam (ATIVAN) 0.5 MG tablet TAKE 1 TABLET ORALLY DAILY NEEDED FOR ANXIETY DURING PLANE TRAVEL 08/01/2024 Active predniSONE (DELTASONE) 20 mg tablet (To-Go) 09/24/2024 Active valACYclovir (VALTREX) 500 MG tablet Take 500 mg by mouth daily. Active cetirizine (ZYRTEC) 10 MG tablet Take 10 mg by mouth daily. Active ELIQUIS 5 mg tablet Take 1 tablet (5 mg total) by mouth 2 (two) times a day. 180 tablet 3 09/24/2024 Active Active Problems No known active problems Encounters Date Type Department Care Team Description 10/03/2024 2:56 PM EDT - 10/03/2024 11:59 PM EDT Hospital Encounter [facility] [place] [address] David Coates MD Discharge Disposition: Home or Self Care 09/24/2024 4:20 PM EDT Office Visit [facility] [address] [place] [address] [address] Floor, [address] [place] [address] David Coates MD Atrial fibrillation (Primary Dx); Paroxysmal atrial fibrillation 09/24/2024 Procedure Pass Echo Lab [address] [place] [address] from Last 3 Months Social History Tobacco Use Types Packs/Day Years Used Date Smoking Tobacco: Never Assessed Education Answer Date Recorded Are you interested in more education? Not on john e 08/19/2024 Are you concerned about learning? Not on file 08/19/2024 No 08/19/2024 No 08/19/2024 Digital Access Answer Date Recorded No 08/19/2024 No 08/19/2024 Reliable internet access at home? Not on file 08/19/2024 Device with a working camera? Not on file Comments Unknown Sex and Gender Information Value Date Recorded Sex Assigned at Not on file Legal Sex Female 9:58 AM EDT Gender Identity Not on file Sexual Orientation Not on file Last Filed Vital Signs Vital Sign Reading Time Taken Comments Blood Pressure 132/70 09/24/2024 4:27 PM EDT Pulse 62 09/24/2024 4:27 PM EDT Temperature - - Respiratory Rate - - Oxygen Saturation 97% 09/24/2024 4:27 PM EDT Inhaled Oxygen Concentration - - Weight 107 kg (235 lb 12.8 oz) 09/24/2024 4:27 P M EDT Height 167.6 cm (5' 6 ) 09/24/2024 4:27 PM EDT Body Mass Index 38.06 09/24/2024 4:27 PM EDT Plan of Treatment Upcoming Encounters Date Type Department Care Team (Late st Contact Info) Description 03/27/2025 9:00 AM EST Office Visit [facility] [address], [address] [place] [address] David Coates MD [facility], [address] [place] [address] [email or web address] Maintenance Due Date Last Done Comments Adult Td,Tdap Booster 1955 CREATININE LEVEL 1957 LIPID PANEL 1957 POTASSIUM LEVEL 1957 DEPRESSION SCREENING 1969 SMOKING Hx and SMOKELESS TOB ACCO SCREENING 1970 HEPATITIS C SCREENING 08/28/1975 SCREENING FOR DIABETES 1992 MAMMOGRAM 1997 COLOGUARD 2002 COLONOSCOPY 2002 COLORECTAL CANCER SCREENING 2002 FIT TEST 2002 FOBT 2002 SIGMOIDOSCOPY 2002 VIRTUAL COLONOSCOPY 2002 PNEUMOCOCCAL VACCINES (50+ y ears) (1 of 1 - PCV) 08/28/2007 ZOSTER VACCINES (1 of 2) 08/28/2007 RSV VACCINE (1 - Risk 60-74 years 1-dose series) 2017 OSTEOPOROSIS SCREENING INITI AL (ONE-TIME) 2022 COVID-19 VACCINE ( - 2023-2 5 season) 2024 HEPATITIS A VACCINES Aged Out No long er eligible based on patient's age to complete this topic HIB VACCINES Aged Out No longer eligi ble based on patient's age to complete this topic MENINGOCOCCAL VACCINES (ACWY) Aged Out No longer eligible based on patient's age to complete this topic MENINGOCOCCAL VACCINES (B) Aged Out N o longer eligible based on patient's age to complete this topic Medical Devices Not on file Procedures Procedure Name Priority Date/Time Associated Diagnosis Comments TTE COMPREHENSIVE Routine 10/03/2024 3:3 5 PM EDT Paroxysmal atrial fibrillation from Last 3 Months Results * TTE COMPREHENSIVE (10/03/2024 3:35 PM EDT) Height 168 cm Weight 107 kg Systolic BP 132 mmHg Diastolic BP 75 mmHg Interventricular Septum Thickness 10 6 - 11 mm Left Ventricle Internal Diameter End Diastole 41 37 - 52 mm Left Ventricle Internal Diameter End Systole 29 <35 mm Left Ventricular Outflow Tract Diameter 19.0 mm Left Ventricular Posterior Wall Thickness 11 6 - 11 mm Left Ventricle Ea Lateral Wave Speed 12.6 cm/s Left Ventricle Ea Septal Wave Speed 8.5 cm/s Ejection Fraction 65 50 - 75 Percent Left Atrium Dimension Anterior-Posterior 38 15 - 40 mm Aortic Valve Mean Gradient 7 mmHg Aortic Valve Time Velocity Integral 398.0 mm Aortic Valve Peak Velocity 1.9 m/s Aortic Valve Peak Gradient 14 mmHg Aortic Arch Diameter 33 mm Aortic Sinus Diameter 28 <40 mm Ascending Aorta Diameter 35 <36 mm Inferior Vena Cava Diameter 13 <21 mm Mitral Valve Deceleration Time 264 ms Left Ventricle A Wave Speed 100.0 cm/s Left Ventricle E Wave Speed 110.0 cm/s Pulmonary Valve Peak Velocity 1.3 m/s Pulmonary Valve Peak Gradient 7 mmHg Right Ventricle Basal Diameter 29 25 - 41 mm Tricuspid Valve Peak Velocity 2.6 m/s Raw LV EF% 50 % MV E/E' Tissue Velocity Lateral 8.73 Relative Wall Thickness 0.54 0.22 - 0.42 Left Ventricular Mass 141.5 g MV E/A ratio 1.1 MV E/e' septal 12.94 Left Ventricle E/e' Average 10.8 Aortic Valve Prosthetic Peak Gradient 14 mmHg Aortic Valve Prosthetic Mean Gradient 7 mmHg Aorta Sinus Index by Height 1.67 cm/m Aorta Sinus CSA index by Height 3.66 cm2/m Asc Aorta CSA Index by Height 5.72 cm2/m Right Ventricle to Right Atrium Pressure Gradient 27 mmHg Right Ventricle Peak Systolic Pressure (Assuming RAP 10) 37 mmHg MGB CV ECHO TV RVSP (ASSUMING RAP OF 5) 32 mmHg RVSP (Exclusive of RAP) 27 mmHg Pulmonic Valve Prosthetic Peak Gradient 7 mmHg Echo E/Ea 12.94 Body Surface Area 2.14 m2 Left Atrial Volume Index 23 16 - 34 mL/m2 Right Ventricle Peak Systolic Pressure 30 mmHg Left Ventricle indexed to BSA 66.1 g/m2 Left Atrial Volume 50 mL Left Atrial Volume Index by Height 30 mL/m LVOT VTI REST 34.0 cm Aortic Valve Sinus Index by BSA 13 mm/m2 Ascending Aorta Index 16 mm/m2 Right Atrium Pressure Estimated 3 mmHg Ascending Aorta Index 16 mm Aortic Sinus Index 13 mm Ascending Aorta Diameter 16 mm Aortic Valve Sinus Index 1 13 19 - 27 mm AO ASC DIAM BSA INDEX 16.36 Anatomical Region Laterality Modality Heart Ultrasound Narrative 10/03/2024 4:32 PM EDT Images from the original result were not included. Borderline LVH with normal LV size and function EF 60 to 65%. Normal PA pressure estimation. Normal RV size and function. Normal diastolic function. Trace mitral regurgitation. Left Ventricle The left ventricle is normal in size. There is borderline concentric hypertrophy. The interventricular septal thickness is 10 mm. The LV posterior wall thickness is 11 mm. The LV ejection fraction is 60-65% (visually estimated). LV diastolic function appears within normal limits for age. The E wave velocity is 110.0 cm/s. The A wave velocity is 100.0 cm/s. The E/A ratio is 1.1. The e' septal wave velocity is 8.5 cm/s. The e' lateral wave velocity is 12.6 cm/s. The average E/e' ratio is 10.8. Right Ventricle The right ventricle is normal in size. There is normal right ventricular systolic function. Left Atrium The left atrium is normal in size. The left atrial volume index by BSA is 23 mL/m2. Right Atrium The right atrium is normal in size. The IVC is normal in size. Mitral Valve There is mild thickening of both mitral leaflets. There is no mitral stenosis. There is trace mitral regurgitation. Tricuspid Valve The tricuspid valve appears normal. There is no tricuspid stenosis. There is trace to mild tricuspid regurgitation. The RV systolic pressure was calculated at 30 mmHg (using TR peak velocity of 2.6 m/s and assuming an RA pressure of 3 mmHg). Aortic Valve The aortic valve is tricuspid. Multiple leaflets are mildly thickened at the tips. There is no aortic stenosis. There is no aortic regurgitation. The visualized portions of the thoracic aorta appear normal in size. Pulmonic Valve The pulmonic valve appears normal. There is no pulmonic stenosis. There is trace pulmonic regurgitation. Pericardium There is a pericardial fat pad. There is no pericardial effusion. General Findings The image quality was fair (3). Technique(s) used in the evaluation: Multiplane, Color flow Doppler and Spectral Doppler. The predominant rhythm during the study was sinus. Comparison Findings There are no prior studies for comparison. IAS/IVS The interatrial septum appears normal. There is no evidence of patent foramen ovale (PFO) by Doppler. David Coates MD CV ECHO ORDERABLES Final Resu lt from Last 3 Months Insurance MEDICARE PART A & B [employer] MEDICARE SUPPLEMENT MEDICARE PART A & B [place] [employer] MEDICARE SUPPLEMENT MEDICARE PART A & B [employer] MEDICARE SUPPLEMENT MEDICARE PART A & B [employer] MEDICARE SUPPLEMENT MEDICARE PART A & B [facility] EXTENSION MEDICARE SUPPLEMENT MEDICARE PART A & B [facility] [employer] MEDICARE SUPPLEMENT Care Teams Location Manager Relationship Specialty Start Date End Date Karie Oliver MD [facility] [place] [address] PCP - General Internal Medicine 08/19/24 Additional Source Comments The information contained in this document represents components of the legal health record. It is not the complete legal health record.[facility]
== END 2024-12-11 09:29 | disposition home or self-care (01) ==
LOC: HO.US 09:28
PROVIDERS: PCP Internal Medicine; Visit Provider Nurse Practitioner Family
DX: N20.0 Calculus of kidney (principal)
CPT/HCPCS: 76775

== ENCOUNTER → 2024-12-11 09:31 | Outpatient (BNV) | payer MEDICARE, OTHER, SELFPAY | PROVIDERS: PCP Internal Medicine; Visit Provider Radiology Diagnostic Radiology | DX: Z87.442 Personal history of urinary calculi (principal) | CPT/HCPCS: 76775 ==

== ENCOUNTER 2024-12-19 08:16 | Outpatient (AMB) | payer MEDICARE, OTHER, SELFPAY ==
--- OUTSIDE RECORDS SUMMARY | 2024-04-17 05:30 | XMS_ITS ---
Author Organization [facility] Address [address] [place] [address] Care Team Providers Care Wellness Ambassador Name Role Phone Melody CHA, Karie Primary Care Provider Phillip Mckeon Unavailable [phone] REASON FOR VISIT screening, fam hx colon ca Problems Problem Type SNOMED Code ICD Code Onset Dates Problem Status W/U Status Risk Notes Problem Diverticulosis o f large intestine without perforation or abscess without bleeding (K57.30) Active confirmed Encounters Encounter Location Date Provider [place] [facility] [place] [address] [place] [id number] 04/17/2024 Phillip Hernandez Colon cancer scree zachary Z12.11 ; Family history of colon cancer Z80.0 ; Diverticulosis of large intestine without perforation or abscess without bleeding K57.30 and Other hemorrhoids K64.8 Assessments Encounter Date Diagnosis (ICD Code) Assessment Notes Treatment Notes Treatment Clinical Notes Section Notes 04/17/2024 Colon cancer screening (ICD-10 - Z12.11) 04/17/2024 Family history of colon cancer (ICD-10 - Z80.0) 04/17/2024 Diverticulosis of large intestine without perforation or abscess without bleeding (ICD-10 - K57.30) 04/17/2024 Other hemorrhoids (ICD-10 - K64.8) Plan Of Treatment No Information Progress Notes * JOSE MANUEL VASQUEZ GDOB:1955 (69 yo F)Acc No.[id number]:04/17/2024 COLON WITH MAC Patient: JOSE MANUEL INIGUEZ Provider: Jonna Hernandez MD :1955 A ge:68 Y S ex:Female Date:04/17/2024 Address:[address] [place] [address] Pcp:Karie Oliver MD Subjective: * Chief Complaints: * 1 . Screening, fam hx colon ca. * Medical History: Objective: * Vitals: Assessment: * Assessment: 1. C olon cancer screening - Z12.11 (Primary) 2 . F amily history of colon cancer - Z80.0 3 . D iverticulosis of large intestine without perforation or abscess without bleeding - K57.30 4 . O ther hemorrhoids - K64.8 Plan: * Treatment: * Procedure Codes: G 0105 COLOREC CANCR SCR; COLNSCPY HI RISK, 0529F INTRVL 3+YRS PTS CLNSCP DOCD, 0528F RCMND FLW-UP 10 YRS DOCD, Modifiers: 1P * * The named appointment provid er may or may not be the originator of this progress note, and it is not deemed complete until electronically signed by the appointment provider. Sign off status: Pending * Provider: Jonna Hernandez MD Date: 1 06/17/2023 Generated for Pradeep garcia/Mendoza/Anoopitting on: 0 12/19/2024 08:23 AM EDT
--- NOTE | 2024-12-19 08:20 | MHC.OFFVIS ---
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 Required: No Accompanied by: Self / Same As Patient Allergies bactrim Allergy (Intermediate, Verified 12/19/24 10:25) swelling, hives contrast dye Allergy (Intermediate, Verified 12/19/24 10:25) swelling of ear oxycodone Allergy (Intermediate, Verified 12/19/24 10:25) shaky/nausea sulfamethoxazole (From BACTRIM) Allergy (Intermediate, Verified 12/19/24 10:25) HIVES trimethoprim (From BACTRIM) Allergy (Intermediate, Verified 12/19/24 10:25) HIVES Medication List - Last Reconciled 12/19/24 by YESSY Lopez- apixaban (Eliquis) 5 mg PO BID 30 days atenolol 50 mg PO DAILY hydrochlorothiazide 12.5 mg PO DAILY lorazepam 0.5 mg PO DAILY PRN valacyclovir (Valtrex) 500 mg PO DAILY HPI Comments Details: Terra Davidson is a pleasant 69 year old female patient of Dr Oliver. She has a past medical history of obesity, benign positional vertigo, nephrolithiasis, AFib, hypertension, and mixed dyslipidemia. She has a past medical history of renal stones, AFib, hypertension, and mixed dyslipidemia. She presents to the office today for a follow up regarding her nephrolithaisis. When asked she reports to be doing well. She states she continues to attempt to drink plenty of water daily in his adding lemon juice to water daily. Recent renal imaging results reviewed with the patient today. 12/13 bilateral kidneys are normal in size contour, and echogenicity. There are no calculi, lesions, or hydronephrosis noted bilaterally. Prominent column of Devin in mid pole of the right kidney. She reports drinking approximately 80 oz of water a day. Patient denies any urinary issues or concerns at this time. She denies urinary urgency, urinary frequency, incontinence, nocturia, hematuria, dysuria, foul smelling urine, changes to urinary stream, flank pain, fever, and or chills. She is happy with her current voiding parameters. In office urinalysis results reviewed with the patient today. She otherwise offers no other issues or concerns at this time. PFSH Medical History History of Papanicolaou smear of cervix History of atrial fibrillation Degenerative joint disease of right hip Obesity (BMI 30-39.9) Benign positional vertigo Bilateral renal stones Sinus bradycardia by electrocardiogram Ureterolithiasis Pain, foot, right, chronic Tibia and fibula open fracture, right Essential hypertension Mixed dyslipidemia Surgical History Hx of colonoscopy History of shoulder surgery History of ankle surgery Family History Father CVD (cardiovascular disease) Maternal Aunt Colon cancer Maternal Uncle Colon cancer Brother No problems noted. Brother No problems noted. Sister No problems noted. Sister No problems noted. Son No problems noted. Daughter No problems noted. Social History Housing: House Are you a primary summer child caregiver to a significant other at home: No Do you presently have visiting nurse or other home services: No Alcohol intake: current Alcohol intake frequency: holidays/special occasions only Alcohol type: wine Patient Tobacco Use Status: Former Tobacco user e-Cigarette/Vaping Use: Never Used Advance Directives Date on File: 06/06/24 service: No Current occupational status: retired Cognitive needs: No Hearing needs: No Vision needs: Yes Review of Systems Const All systems reviewed & are unremarkable except as noted in HPI and below Physical Exam Const General: cooperative, healthy appearing, comfortable, no acute distress, well developed, alert and awake Nutritional Appearance: overweight Orientation/consciousness: patient oriented x3 Limitations: no limitations HEENT Head: Yes normal to inspection, Yes normocephalic and Yes atraumatic Eyes General: appearance normal, both eyes and all related structures Neck Neck: Yes normal visual inspection and Yes trachea midline Chest Chest palpation & inspection: normal inspection of the chest Resp Effort & Inspection: normal respiratory effort and able to speak in complete sentences Cardio Rate: regular rate GI Inspection: Yes normal to inspection General: Yes no CVA tenderness Back/Spine/Pelvis Back: no CVA tenderness Neuro General: patient oriented x3 Extrem General: Yes normal to inspection Psych Appearance: grossly normal and well kempt Mental Status: mental status grossly normal Speech and movement: Normal speech and movement present and Clear speech present Affect: normal affect Attitude: cooperative Thought process: Normal thought process present Thought content: Normal thought content present Insight: Fair insight present (Psych) Judgement: Fair judgement present (Psych) Results AMB Urinalysis, Automated UA Leukoctes 0 Alexia/uL Last Edit by EBONI Boone on 12/19/24 08:37 UA Nitrite Negative Last Edit by Mindi Zavala [facility] on 12/19/24 08:37 UA Urobilinogen 0.2 mg/dL Last Edit by Mindi Zavala [facility] on 12/19/24 08:37 UA Protein 0 mg/dL Last Edit by Mindi Zavala [facility] on 12/19/24 08:37 UA pH 6.5 Last Edit by Mindi Zavala [facility] on 12/19/24 08:37 UA Blood 0 Aaron/uL Last Edit by Mindi Zavala [facility] on 12/19/24 08:37 UA Specific [place] 1.015 Last Edit by Mindi Zavala [facility] on 12/19/24 08:37 UA Ketone Negative Last Edit by Mindi Zavala [facility] on 12/19/24 08:37 UA Bilirubin 0 mg/dL Last Edit by Mindi Zavala [facility] on 12/19/24 08:37 UA Glucose 0 mg/dL Last Edit by Mindi Zavala [facility] on 12/19/24 08:37 Results Reviewed Results Reviewed: Laboratory Last Values Urine pH (Auto) 6.5 12/19/24 08:37 Specific [place] (Auto) 1.015 12/19/24 08:37 Urine Protein (Auto) 0 mg/dL 12/19/24 08:37 Glucose (UA)(Auto) 0 mg/dL 12/19/24 08:37 Urine Ketones (Auto) Negative 12/19/24 08:37 Urine Blood (Auto) 0 Aaron/uL 12/19/24 08:37 Urine Nitrite (Auto) Negative 12/19/24 08:37 Urine Bilirubin (Auto) 0 mg/dL 12/19/24 08:37 Urine Urobilinogen (Auto) 0.2 mg/dL 12/19/24 08:37 Leukocyte Esterase (Auto) 0 Alexia/uL 12/19/24 08:37 Date of Service: 12/11/24 Procedure(s): US renal BI FINDINGS: RIGHT KIDNEY: 12.3 x 4.7 x 5.5 cm (SAG x AP x TRV). The kidney is normal in size, contour, and echogenicity. Renal cortical thickness is normal. There is a hypertrophic column of Devin in midpole. No calculi or focal parenchymal lesions. No hydronephrosis. LEFT KIDNEY: 12.7 x 5.0 x 5.7 cm (SAG x AP x TRV). The kidney is normal in size, contour, and echogenicity. Renal cortical thickness is normal. No calculi or focal parenchymal lesions. No hydronephrosis. IMPRESSION: Prominent column of Devin in midpole right kidney. No radiopaque urolith or hydroureteronephrosis.. Assessment & Plan Assessment & Plan (1) Bilateral renal stones: Code(s): N20.0 - Calculus of kidney Category: Medical Plan In office urinalysis results reviewed with the patient today; as noted above Recent renal imaging results reviewed with the patient today; as noted above Educated, encouraged, instructed on the importance of drinking plenty of water daily. Continue adding 1 oz of lemon juice to water daily. Patient denies any urological issues or concerns at this time Renal ultrasound in six months Follow-up in 6 months with imaging to be completed prior; or sooner with any issues, concerns, and or questions. Orders: Orders AMB Urinalysis Automated Today Z13.9 - Encounter for screening, unspecified Patient Instructions: The patient had an opportunity to ask questions regarding the treatment plan. All questions were answered. Physical exam, labs, and imaging were discussed and reviewed in detail. As well as risks, benefits, and discussion of treatment choices. No major barriers to understanding were identified. The patient expressed understanding and agreement with the above treatment plan. The patient was made aware they should contact our office by phone for worsening of their current condition, the appearance of new symptoms, or with any questions or concerns. Compliance is encouraged with any medications and follow up testing that is ordered. It is a privilege to be allowed the opportunity to participate in? your urological care.? Again, if you have any questions or concerns If you have any questions or concerns please do not hesitate to contact me. The office is [phone]. This note is constructed using voice recognition software. While every effort has been made to ensure accuracy vice president of recruiting errors may have been included. Yours sincerely, IZAIAH Lopez Coding Level of Care Code Est Pt Level 3 (73690) Complex EM visit Add On G2211 Diagnoses Bilateral renal stones N20.0
--- OUTSIDE RECORDS SUMMARY | 2024-12-19 08:24 | XMS_ITS | Clinical Summary ---
Author Organization [facility] Address [address] [place] [id number] Phone Care Team Providers Care Slate Worker Name Role Phone Karie Oliver MD Primary [...] 11:59 PM EDT Hospital Encounter Echo [facility] [place] [address] David Coates MD Discharge Disposition: Home or Self Care 09/24/2024 4:20 PM EDT Office Visit [facility] [address] [place] [address] [address] Floor, [address] [place] [address] David Coates MD Atrial fibrillation (Primary Dx); Paroxysmal atrial fibrillation 09/24/2024 Procedure Pass Echo Lab [address] [place] [address] from Last 3 Months Social History Tobacco [...] Description 03/27/2025 9:00 AM EST Office Visit [facility] [address] Floor, [address] [place] [address] David Coates MD [facility], [address] [place] [address] [email or web address] Due Date Last Done Comments [...] Months Insurance MEDICARE PART A & B [employer] MEDICARE SUPPLEMENT MEDICARE PART A & B [employer] EXTENSION MEDICARE SUPPLEMENT MEDICARE PART A & B [employer] MEDICARE SUPPLEMENT MEDICARE PART A & B [employer] MEDICARE SUPPLEMENT MEDICARE PART A & B [facility] EXTENSION MEDICARE SUPPLEMENT MEDICARE PART A & B [facility] EXTENSION MEDICARE SUPPLEMENT Care Teams Slate Worker Relationship Specialty Start Date End Date Karie Oliver MD [facility] [place] [address] PCP - General Internal Medicine 08/19/24 Additional Source Comments The information contained in this document represents components of the legal health record. It is not the complete legal health record.[facility]
--- OUTSIDE RECORDS SUMMARY | 2024-12-19 08:24 | XMS_ITS | Patient Health Record ---
Author Organization [facility] Address [address] [place] [address] Care Team Providers Care Mat Gauger Name Role Phone Melody CHA, Karie Lora Primary Care Provider Un available Black, Manju Unavailable [phone] Allergies Allergen (clinical drug ingredient) Drug/Non Drug [...] Notes Problem Plantar wart of left foot ([id number]) Plantar wart of left foot (B07.0) Active confirmed Plan Of Treatment Pending Test Test Name Order Date [id number] Destruction, 06-0411/07/2022 [id number] Destruction, 06-0412/19/2022 [id number]- Debride <25 sq cm 09/24/2013 Insurance Providers Payer Name Payer Address Payer Phone Subscriber Number Group Number Insured Name Patient Relationship to Insured Coverage Start Date Coverage End Date [facility] [address] [place] [id number] Terra Martel Self - patient is [...]
== END 2024-12-19 09:12 | disposition home or self-care (01) ==
LOC: HO.HUSH 08:17
PROVIDERS: PCP Internal Medicine; Visit Provider Nurse Practitioner Family
DX: N20.0 Calculus of kidney (principal); Z13.9 Encounter for screening, unspecified
CPT/HCPCS: 99213; G2211

== ENCOUNTER → 2024-12-19 08:16 | Outpatient (BNVA) | payer MEDICARE, OTHER, SELFPAY | PROVIDERS: PCP Internal Medicine; Visit Provider Nurse Practitioner Family | DX: N20.0 Calculus of kidney (principal); Z13.9 Encounter for screening, unspecified | CPT/HCPCS: 81003; 99212 ==

== ENCOUNTER → 2025-01-16 07:45 | Outpatient (BNV) | payer MEDICARE, OTHER, SELFPAY | PROVIDERS: PCP Internal Medicine; Visit Provider Radiology Diagnostic Radiology | DX: I48.0 Paroxysmal atrial fibrillation (principal) | CPT/HCPCS: 71046 ==

== ENCOUNTER 2025-01-16 08:13 | Emergency (ER) | payer MEDICARE, OTHER, SELFPAY ==
--- OUTSIDE RECORDS SUMMARY | 2023-10-05 05:20 | XMS_ITS ---
Author Organization [facility] Address [address] [place] [address] Care Team Providers Care Warehouse Record Clerk Name Role Phone Melody CHA, Karie Primary Care Provider Phillip Mckeon [phone] REASON FOR VISIT Patient presents today for a screening colonoscopy Encounters Encounter Location Date Provider Diagnosis [facility] [address] [place] [address] 10/05/2023 Phillip Hernandez Plan Of Treatment No Information Progress Notes * JOSE MANUEL VASQUEZ GDOB:1955 (69 yo F)Acc No.[id number]:10/05/2023 Progress Notes Patient: JOSE MANUEL INIGUEZ Provider: Jonna Hernandez MD :1955 A ge:68 Y S ex:Female Date:10/05/2023 Address:[address] [place], [place] [id number] Pcp:Karie Oliver MD Subjective: * Chief Complaints: [...] 10/05/2023 Generated for Printi ng/Fanancyg/eTransmitting on: 0 01/16/2025 09:34 AM EDT
--- OUTSIDE RECORDS SUMMARY | 2024-04-17 05:30 | XMS_ITS ---
Author Organization [facility] Address [address] [place] [address] Care Team Providers Care A P Mechanic Name Role Phone Melody CHA, Karie Primary Care Provider Phillip Mckeon Unavailable [phone] REASON FOR VISIT screening, fam hx colon ca Problems Problem Type SNOMED Code ICD Code Onset Dates Problem Status W/U Status Risk Notes Problem Diverticulosis o f large intestine without perforation or abscess without bleeding (K57.30) Active confirmed Encounters Encounter Location Date Provider Diagnosis [facility] [place] [address] [place], [place] [phone] 04/17/2024 Phillip Hernandez Colon cancer scree zachary [...] JOSE MANUEL VASQUEZ GDOB:1955 (69 yo F)Acc No.[id number]:04/17/2024 COLON WITH MAC Patient: JOSE MANUEL INIGUEZ Provider: Jonna Hernandez MD :1955 A ge:68 Y S ex:Female Date:04/17/2024 Address:[address] [place] [address] Pcp:Karie Oliver MD Subjective: * Chief Complaints: [...] MD Date: 1 06/17/2023 Generated for Pradeep garcia/Mendoza/Jessicasmitting on: 0 01/16/2025 09:34 AM EDT
--- NOTE | 2025-01-16 | ECG_ITS ---
Test Reason : IRREGULAR HR Blood Pressure : */* mmHG Vent. Rate : 70 BPM Atrial Rate : * BPM P-R Int : * ms QRS Dur : 86 ms QT Int : 350 ms P-R-T Axes : * -5 24 degrees QTcB Int : 378 ms Atrial fibrillation Abnormal ECG When compared with ECG of 18-Aug-2024 10:07, Atrial fibrillation has replaced Sinus rhythm Referred By: Generic ED Physician Electronically Signed By: BRITANY VILLA
--- NOTE | ~2025-01-16 | XR_ITS ---
EXAMINATION: XR CHEST 2 VIEWS HISTORY: irregular hear beat COMPARISON: Comparison is made with the prior examination dated 08/18/2024. FINDINGS: PA and lateral views of the chest are submitted. Again seen is eventration of the right hemidiaphragm. The lungs are expanded and clear. There is no pleural effusion, pneumothorax, or pulmonary vascular congestion. The heart is normal in size. There is degenerative disc disease of the spine. XR/XR chest 2V IMPRESSION: No acute cardiopulmonary abnormality. Electronically signed by: Phillip Hall MD 01/16/2025 08:45 AM EDT
[2025-01-16 08:16] VITALS: BP 147/89; PULSE 86; RESP 18; TEMP 36.6; O2SAT 98; BMI 38.0
--- NOTE | 2025-01-16 08:23 | ECG_ITS ---
Test Reason : rhythm change Blood Pressure : */* mmHG Vent. Rate : 46 BPM Atrial Rate : 46 BPM P-R Int : 196 ms QRS Dur : 86 ms QT Int : 400 ms P-R-T Axes : 32 -5 19 degrees QTcB Int : 350 ms Sinus bradycardia Otherwise normal ECG When compared with ECG of 16-Jan-2025 08:34, Sinus rhythm has replaced Atrial fibrillation Vent. rate has decreased by 24 bpm Referred By: Generic ED Physician Electronically Signed By: BRITANY VILLA
[2025-01-16 08:32] VITALS: BP 153/92; PULSE 67; PULSE 72; RESP 14; O2SAT 97
--- NOTE | 2025-01-16 08:36 | PC.NURSE ---
Addendum entered by Vanessa Grewal RN 01/16/25 10:15: Patient is a 69 yo female with a past medical history of obesity, benign positional vertigo, nephrolithiasis, AFib, hypertension, and mixed dyslipidemia presents with an irregular heart rate. History of afib in the past. Patient alert and oriented. shelter monitor shows afib with a controlled rate. Denies any CP or SOB. Lungs clear bilat. Respirations even and non-labored. Abdomen soft, non-tender with positive bowel sounds. Positive pedal pulses with no edema. Original Note: Medical History History of Papanicolaou smear of cervix History of atrial fibrillation Degenerative joint disease of right hip Obesity (BMI 30-39.9) Benign positional vertigo Bilateral renal stones Sinus bradycardia by electrocardiogram Ureterolithiasis Pain, foot, right, chronic Tibia and fibula open fracture, right Essential hypertension Mixed dyslipidemia
--- NOTE | 2025-01-16 09:01 | ED_ITS ---
HPI - General Adult General Chief complaint: Arrhythmia/Palpitations Stated complaint: Irregular heart rate Time Seen by Provider: 01/16/25 08:52 Source: patient and family (patient's ) Mode of arrival: ambulatory Limitations: no limitations History of Present Illness ED Provider: Jessica Jacome PA-C HPI narrative: Patient is a 69 year old assigned female at with a history of paroxysmal atrial fib on Eliquis and Metoprolol, HTN, and HLD presenting to the emergency department today in atrial fibrillation. Patient states that she woke up this morning and felt that she is in atrial fib. Patient states that the last time this happened she was given an oral medication and converted. Patient states that she follows up with a manager eligibility outside of the [facility] system. Patient states that she took her medications today as directed. Patient denies any other complaints at this time. Relieving factors: none Exacerbating factors: none Associated symptoms: denies other symptoms Related Data Home Medications ?Medication ?Instructions ?Recorded ?Confirmed valacyclovir 500 mg tablet 500 mg PO DAILY 01/18/23 (Valtrex) Previous Rx's ?Medication ?Instructions ?Recorded atenolol 50 mg tablet 50 mg PO DAILY #90 tabs 05/22 09/13 hydrochlorothiazide 12.5 mg capsule 12.5 mg PO DAILY # 90 caps 06/04/24 lorazepam 0.5 mg tablet 0.5 mg PO DAILY PRN anxiety during 08/01/24 plane travel #10 tabs apixaban 5 mg tablet (Eliquis) 5 mg PO BID 30 days #60 tabs 08/18/24 Allergies Allergy/AdvReac Type Severity Reaction Status Date / Time bactrim Allergy Intermediate swelling, Verified 01/16/25 08:20 hives contrast dye Allergy Intermediate swelling Verified 01/16/25 08:20 of ear oxycodone Allergy Intermediate shaky/nause Verified 01/16/25 08:20 a sulfamethoxazole (From Allergy Intermediate HIVES Verified 01/16/25 08:20 BACTRIM) trimethoprim (From BACTRIM) Allergy Intermediate HIVES Verified 01/16/25 08:20 Review of Systems 2 Constitutional: Constitutional: Reports as per HPI Eyes: Eyes: Reports as per HPI ENT: Reports as per HPI Cardiovascular: Cardiovascular: Reports as per HPI Respiratory: Respiratory: Reports as per HPI Gastrointestinal: Gastrointestinal: Reports as per HPI Genitourinary: Genitourinary: Reports as per HPI Musculoskeletal: Musculoskeletal: Reports as per HPI Integumentary/Breasts: Skin/Breast: Reports as per HPI Neurologic: Reports as per HPI Psychiatric: Psychiatric: Reports as per HPI Endocrine: Endocrine: Reports as per HPI Hematologic/Lymphatic: Hematologic/Lymphatic: Reports as per HPI Allergic/Immunologic: Allergic/Immunologic: Reports as per HPI [facility] Past Medical History Attestation statement: The following information was validated with the patient. (all information validated with the patient's ) Source: old records reviewed, obtained from family (patient's provided additional history and confirmed the history provided by the patient. ) and nursing notes reviewed Medical History History of Papanicolaou smear of cervix History of atrial fibrillation Degenerative joint disease of right hip Obesity (BMI 30-39.9) Benign positional vertigo Bilateral renal stones Sinus bradycardia by electrocardiogram Ureterolithiasis Pain, foot, right, chronic Tibia and fibula open fracture, right Essential hypertension Mixed dyslipidemia Surgical History Hx of colonoscopy History of shoulder surgery History of ankle surgery Family History Family History Father CVD (cardiovascular disease) Maternal Aunt Colon cancer Maternal Uncle Colon cancer Brother No problems noted. Brother No problems noted. Sister No problems noted. Sister No problems noted. Son No problems noted. Daughter No problems noted. Social History Social History Housing: House Are you a primary customer care consultant to a significant other at home: No Do you presently have visiting nurse or other home services: No Alcohol intake: current Alcohol intake frequency: holidays/special occasions only Alcohol type: wine Patient Tobacco Use Status: Former Tobacco user Smoked in Last 30 Days: No e-Cigarette/Vaping Use: Never Used Use of substances other than those prescribed or required for medical reasons: No Advance Directives: Yes Advance Directives on File: Yes Advance Directives Date on File: 06/06/24 service: No Current occupational status: retired Cognitive needs: No Hearing needs: No Vision needs: Yes Physical Exam ED Vital Signs: Vital Signs - 24 hr 01/16/25 08:16 01/16/25 08:32 01/16/25 08:32 Temperature 97.8 F Pulse Rate 86 72 Pulse Rate [Monitor] 67 Respiratory Rate 18 14 Blood Pressure 147/89 H 153/92 H Pulse Oximetry 98 97 Oxygen Delivery Method Room Air Room Air 01/16/25 11:22 01/16/25 11:59 Temperature 97.9 F 97.9 F Pulse Rate 50 50 Pulse Rate [Monitor] Respiratory Rate 15 15 Blood Pressure 132/76 132/76 Pulse Oximetry 99 99 Oxygen Delivery Method Room Air Room Air BMI result Body Mass Index 38.0 Const General: cooperative, no acute distress, alert and awake Nutritional Appearance: well nourished Orientation/consciousness: patient oriented x3 HENMT Head: Yes normal to inspection and Yes atraumatic Ears: hearing grossly normal bilaterally and external ears normal General nose exam: Normal external nose present, no nasal discharge noted and no epistaxis Face and sinus: Yes normal facial exam, No abrasion and No laceration Mouth: Normal oral and palatal mucosa present, no drooling and no muffled voice Eyes General: appearance normal, both eyes and all related structures Periorbital: periorbital findings normal Eyelids: Yes eyelids normal Conjunctivae: conjunctivae normal Pupils: Equal, round and reactive pupils present EOM: EOMs intact bilaterally Neck Neck: Yes normal visual inspection and Yes full ROM Resp Effort & Inspection: normal respiratory effort and able to speak in complete sentences Cardio Rate: regular rate Rhythm: abnormal rhythm irregularly irregular Neuro General: patient oriented x3, moves all extremities and CN's II-XI intact bilaterally Cranial nerves: Yes Equal, round and reactive pupils present Cognition (Neuro): normal cognition Extrem General: Yes normal to inspection, Yes full ROM and Yes capillary refill normal Psych Appearance: grossly normal Mental Status: mental status grossly normal Affect: normal affect Attitude: cooperative Thought process: Normal thought process present Thought content: Normal thought content present Insight: Good insight present (Psych) Medical Decision Making Medical Decision Making MDM Narrative: Patient is a 69 year old assigned female at with a history of paroxysmal atrial fib on Eliquis and Metoprolol, HTN, and HLD presenting to the emergency department today in atrial fibrillation. Patient's physical exam was as noted in the physical exam portion of this note and consistent with atrial fibrillation under rate control and anti-coagulated. Patient's blood work was unremarkable. Patient's EKG showed atrial fib. Patient's chest x-ray showed no acute process. I explained my physical exam findings as well as all test results to the patient and the patient's . I answered all questions asked by the patient and the patient's . I explained to the patient that we could cardiovert her since she is anticoagulated or we could attempt to give the patient PO Flecainide to convert her back into sinus rhythm. Patient requested time to consider her options and her was able to contact her personal manager eligibility who recommended either having a dose of PO Flecainide or being cardioverted before being discharged from the emergency department today. Patient opted for a PO dose of Flecainide which I ordered however, before the patient could be given the dose, she converted herself to sinus rhythm - as confirmed on her repeat EKG. I stressed the importance of the patient taking her medication as directed (either prescribed or as the over the counter packaging recommends). I stressed the importance of the patient following up with her primary care provider and her manager eligibility. I stressed the importance of the patient returning to the emergency department immediately if her were to return or if she were to develop any dizziness, shortness of breath, difficulty breathing, chest pain, blurry vision, loss of vision, nausea, vomiting, abdominal pain, fever, chills, back pain, or any other complaints. Patient and the patient's verbalized agreement and understanding with this treatment plan and discharge. Differential Diagnosis Differential Diagnoses: The differential diagnosis associated with the presentation includes Atrial fib Uncontrolled atrial fib Admission/Observation Consideration of admission/observation: Escalation of care including admission/observation considered Patient would have been admitted to the hospital had her work up had any findings where hospital admission was appropriate and her clinical presentation warranted hospital admission. Lab Data [facility] Lab Attestation statement: I reviewed the patient's lab results. My interpretation of these results are in the [facility] Rationale portion of this note. 01/16/25 08:59 01/16/25 08:59 Labs: Lab Results 01/16/25 Range/Units 08:59 WBC 6.1 (4.8-10.8) X10*3/uL RBC 4.81 (4.20-5.50) X10*6/uL Hgb 15.6 (12.0-16.0) g/dl Hct 44.8 (37.0-47.0) % MCV 93.1 (80.0-98.0) fL MCH 32.4 (27.0-33.0) pg MCHC 34.8 (31.0-35.0) g/dl RDW 13.2 (11.0-16.0) % Plt Count 258 (160-400) X10*3/uL MPV 10.2 (9.4-12.3) fL Absolute Nucleated RBC 0.000 (0.0-0.012) X10*3/uL Nucleated RBC % (auto) 0.0 (0.0-0.2) /100WBC PT 12.4 D (10.9-12.4) SEC INR 1.1 (0.9-1.1) Sodium 139 (135-145) mmol/L Potassium 3.8 (3.3-5.1) mmol/L Chloride 103 (96-108) mmol/L Carbon Dioxide 30 H (22-29) mmol/L Anion Gap 10 L (12-20) BUN 14 (9-16) mg/dL Creatinine 0.64 (0.5-1.4) mg/dL Estim Creat Clear Calc 105.3 Estimated GFR > 60 Random Glucose 99 (60-115) mg/dL Calcium 9.6 (8.4-10.2) mg/dL Magnesium 2.3 (1.6-2.6) mg/dL Total Bilirubin 1.3 H (0.0-1.0) mg/dL AST 23 (5-31) U/L ALT 29 (0-31) U/L Alkaline Phosphatase 75 (39-117) U/L Troponin I High Sens < 2.7 (<3.5-17.0) ng/L Total Protein 7.3 (6.5-8.0) g/dL Albumin 4.6 (3.5-5.0) g/dL Independent Interpretation I performed an independent interpretation of an: EKG and Plain X-Ray Interpretation: My interpretation is in agreement with the radiologist's impression of this imaging study. L EXAMINATION: XR CHEST 2 VIEWS HISTORY: irregular hear beat COMPARISON: Comparison is made with the prior examination dated 08/18/2024. FINDINGS: PA and lateral views of the chest are submitted. Again seen is eventration of the right hemidiaphragm. The lungs are expanded and clear. There is no pleural effusion, pneumothorax, or pulmonary vascular congestion. The heart is normal in size. There is degenerative disc disease of the spine. XR/XR chest 2V IMPRESSION: No acute cardiopulmonary abnormality. Electronically signed by: Phillip Hall MD 01/16/2025 08:45 AM EDT RP Dictated By: Phillip Hall MD Signed By: Electronically signed by Phillip Hall MD 01/16/25 0845 I independently interpreted this EKG and am in agreement with the below findings: Vent. Rate: 70 BPM Atrial Rate: * BPM P-R Int: * ms QRS Dur: 86 ms QT Int: 350 ms P-R-T Axes: * -5 24 degrees QTcB Int: 378 ms Atrial fibrillation When compared with ECG of 18-Aug-2024 10:07, Atrial fibrillation has replaced Sinus rhythm DD/ 0834 I independently interpreted this EKG and am in agreement with the below findings: Vent. Rate: 46 BPM Atrial Rate: 46 BPM P-R Int: 196 ms QRS Dur: 86 ms QT Int: 400 ms P-R-T Axes: 32 -5 19 degrees QTcB Int: 350 ms Sinus bradycardia Otherwise normal ECG When compared with ECG of 16-Jan-2025 08:34, Sinus rhythm has replaced Atrial fibrillation Vent. rate has decreased by 24 bpm DD/ 1056 Radiology Impression Discussion of test interpretation with radiology: I have reviewed the radiologist's reading. Independent Historian Clinical information obtained from an independent historian. History obtained from or confirmed by: Spouse (patient's provided additional history and confirmed the history provided by the patient.) Discharge Plan Discharge Clinical Impression: Atrial fibrillation Patient Disposition: Home, Self-Care Instructions: A-fib (Atrial Fibrillation) (ED) Additional Instructions: You were seen today for atrial fibrillation which you self-converted out of back into normal sinus rhythm. Your work up today was reassuring there is no EMERGENT reason why you went into atrial fib in the first place. Follow up with your manager eligibility. IF you are prescribed home medications and/or you are taking over the counter medications at home - it is very important you continue to do so as prescribed / directed unless told otherwise. Follow up with your primary care provider. Return to the emergency department immediately if your symptoms worsen or if you develop any numbness, tingling, dizziness, shortness of breath, difficulty breathing, chest pain, blurry vision, loss of vision, nausea, vomiting, abdominal pain, fever, chills, back pain, or any other complaints. Please see the information below about our Patient Portal. If you are not yet enrolled in the [facility] Patient Portal, you will receive an enrollment email invitation following your visit to any [facility] care setting. You may also self-enroll in the Patient Portal by visiting our website: [email or web address] The following information is required to access the Patient Portal: - Your [facility] Medical Record Number - Your personal home email address (must match what is in your electronic medical record, Registration staff can assist with this) - Name - Date of Capabilities of the Patient Portal: - Message some providers - View upcoming appointments - Access your health summary, medical history, and visit history - View current conditions and allergies - View procedure and lab results - View your medications, including guidelines, side effects, and precautions - Complete pre-appointment questionnaires requested by your provider - Ready summary reports of your office visits and procedures To access the Patient Portal Mobile Janene, follow these directions: - Search [employer] in the Janene Store or Google Play Store - Download the Janene - Search for [facility] - Enter your login/password Prescriptions: No Action lorazepam 0.5 mg tablet 0.5 mg PO DAILY PRN (Reason: anxiety during plane travel) Qty: 10 0RF Eliquis 5 mg tablet 5 mg PO BID 30 Days Qty: 60 3RF valacyclovir [Valtrex] 500 mg tablet 500 mg PO DAILY atenolol 50 mg tablet 50 mg PO DAILY Qty: 90 3RF hydrochlorothiazide 12.5 mg capsule 12.5 mg PO DAILY Qty: 90 3RF Referrals: Karie Oliver MD [Primary Care Provider, Internal Medicine] Interventions: ED Discharge Assessment Last Done: 01/16/25 11:59 Discharge Date/Time: 01/16/25 12:01 Print Language: Japanese
[2025-01-16 09:11] LABS: INTERNATIONAL NORM RATIO 1.1 (0.9-1.1); Prothrombin Time 12.4 SEC (10.9-12.4)
[2025-01-16 09:15] LABS: Hematocrit 44.8 % (37.0-47.0); Hemoglobin 15.6 g/dl (12.0-16.0); Mean Corpuscular HGB Conc 34.8 g/dl (31.0-35.0); Mean Corpuscular Hemoglobin 32.4 pg (27.0-33.0); Mean Corpuscular Volume 93.1 fL (80.0-98.0); NRBC Abs Auto 0.000 X10*3/uL (0.0-0.012); NRBC Pct Auto 0.0 /100WBC (0.0-0.2); Platelet Count 258 X10*3/uL (160-400); Red Blood Count 4.81 X10*6/uL (4.20-5.50); White Blood Count 6.1 X10*3/uL (4.8-10.8)
[2025-01-16 09:23] LABS: Alanine Aminotransferase 29 U/L (0-31); Albumin Level 4.6 g/dL (3.5-5.0); Alkaline Phosphatase 75 U/L (39-117); Anion Gap 10 (12-20); Aspartate Amino Transferase 23 U/L (5-31); Blood Urea Nitrogen 14 mg/dL (9-16); Calcium 9.6 mg/dL (8.4-10.2); Carbon Dioxide 30 mmol/L (22-29); Chloride 103 mmol/L (96-108); Creatinine Clr Calc Pharmacy 105.3; Estimated Glomerular Filt Rate > 60; Magnesium 2.3 mg/dL (1.6-2.6); Potassium 3.8 mmol/L (3.3-5.1); Sodium 139 mmol/L (135-145); Total Protein 7.3 g/dL (6.5-8.0)
[2025-01-16 09:30] LABS: Troponin-I High Sensitivity < 2.7 ng/L (<3.5-17.0)
--- OUTSIDE RECORDS SUMMARY | 2025-01-16 09:34 | XMS_ITS | Patient Health Record ---
Author Organization [facility] Address [address] [place] [address] Care Team Providers Care Teletypewriter Installer Name Role Phone Melody CHA, Karie Primary Care Provider Phillip Mckeon Unavailable [phone] Allergies Allergen (clinical drug ingredient) Drug/Non Drug [...] Problem Screening for malignant neoplasm of colon (369734779) Encounter for screening for malignant neoplasm of colon (Z12.11) Active confirmed Problem Pre-procedure evaluation check (861619257) Encounter for other preprocedural examination (Z01.818) Active confirmed Problem Diverticulosis o f large intestine without perforation or abscess without bleeding (K57.30) Active confirmed Problem Long-term current use of aspirin ([id number] 03) Aspirin long-term use (Z79.82) Active confirmed Problem Family History of Cancer of Colon (Situation) (753958537) Family history of colon cancer (Z80.0) Active confirmed Vital Signs Temperature 98.0 degrees Fahrenheit 01/17/2024 Blood pressure diastolic 00 mm Hg 01/17/2024 Height 65 in 01/17/2024 Blood pressure systolic 000 mm Hg 01/17/2024 Weight 229 lb 8 oz lbs 01/17/2024 BMI 38.19 kg/m2 01/17/2024 Encounters Encounter Location Date Provider Diagnosis [facility] [address] [place], [place] [id number] 04/17/2024 Phillip Hernandez Colon cancer screeni ng Z12.11 ; Family history of colon cancer Z80.0 ; Diverticulosis of large intestine without perforation or abscess without bleeding K57.30 and Other hemorrhoids K64.8 [facility] [address] [place] [address] 01/17/2024 Phillip Hernandez Encounter for screen ing [...] Date MEDICARE OF [place] [address] [place] [address] [id number] JOSE MANUEL VASQUEZ Self - patient is the insured [employer] ([place]) [address] [place] [address] [id number] JOSE MANUEL VASQUEZ Self - patient [...]
--- OUTSIDE RECORDS SUMMARY | 2025-01-16 09:34 | XMS_ITS | Patient Health Record ---
Author Organization [facility] Address [address] [place] [address] Care Team Providers Care Load Checker Name Role Phone Melody CHA, Karie Lora Primary Care Provider Un available Black, Manju Unavailable [phone] Allergies Allergen (clinical drug ingredient) Drug/Non Drug [...] Notes Problem Plantar wart of left foot ([id number] 97399) Plantar wart of left foot (B07.0) Active confirmed Plan Of Treatment Pending Test Test Name Order Date [id number] Destruction, 06-0411/07/2022 [id number] Destruction, 06-0412/19/2022 30732- Debride <25 sq cm 09/24/2013 Insurance Providers Payer Name Payer Address Payer Phone Subscriber Number Group Number Insured Name Patient Relationship to Insured Coverage Start Date Coverage End Date [facility] [address] [place] [id number] Terra Martel Self - patient is [...]
--- OUTSIDE RECORDS SUMMARY | 2025-01-16 09:35 | XMS_ITS | Encounter Summary ---
Author Organization [facility] Address [address] [place] [address] Phone Care Team Providers Care Paper Colorer Name Role Phone Karie Oliver MD Primary Care Provider Encounter Details Date Type Department Care Team (Late st Contact Info) Description 09/24/2024 Procedure Pass Echo [facility] [place] [place] [address] Social History Tobacco Use Types Packs/Day Years [...] on file Sexual Orientation Not on file documented as of this encounter Plan of Treatment Upcoming Encounters Date Type Department Care Team (Late st Contact Info) Description 03/27/2025 9:00 AM EST Office Visit [facility] [address] [place] [address] [address] Floor, [address] [place] [address] David Coates MD [address] [facility], [address] [place] [id number] documented as of this encounter Visit Diagnoses Not on filedocumented in this encounter Care Teams Paper Colorer Relationship Specialty Start Date End Date Karie Oliver MD [facility] [place] [address] PCP - General Internal Medicine 08/19/24 documented as of this encounter Additional Source Comments The information contained in this document represents components of the legal health record. It is not the complete legal health record.[facility]
--- OUTSIDE RECORDS SUMMARY | 2025-01-16 09:35 | XMS_ITS | Clinical Summary ---
Author Organization [facility] Address [address] [place] [address] Phone Care Team Providers Care Lead Technician Name Role Phone Karie Oliver MD Primary [...] Active Active Problems No known active problems Social History Tobacco Use Types Packs/Day Years [...] Description 03/27/2025 9:00 AM EST Office Visit [facility] [address] [place] [address] [address] Floor, [address] [place] [address] David Coates MD [address] [facility], [address] [place] [address] [email or web address] Health Maintenance Due Date Last Done Comments [...] SCREENING INITI AL (ONE-TIME) 2022 COVID-19 VACCINE (1 - 2023-2 5 season) 2024 HEPATITIS A [...] this topic Medical Devices Not on file Insurance MEDICARE PART A & B [facility] [employer] MEDICARE SUPPLEMENT MEDICARE PART A & B [address] [place], [place] [id number] EXTENSION MEDICARE SUPPLEMENT MEDICARE PART A & B [employer] MEDICARE SUPPLEMENT MEDICARE PART A & B [place] MED[employer]ARE SUPPLEMENT MEDICARE PART A & B [place] MED[place]ARE SU[place] PART A & [place] [id number] [facility] [employer] MEDICARE SUPPLEMENT Care Teams Lead Technician Relationship Specialty Start Date End Date Karie Oliver MD [address] [place] [address] PCP - General Internal Medicine 08/19/24 Additional Source Comments The information contained in this document represents components of the legal health record. It is not the complete legal health record.[facility]
--- NOTE | 2025-01-16 11:00 | PC.NURSE ---
Patient noted to spontaneously convert into sbrady.
[2025-01-16 11:22] VITALS: BP 132/76; PULSE 50; RESP 15; TEMP 36.6; O2SAT 99
[2025-01-16 11:59] VITALS: BP 132/76; PULSE 50; RESP 15; TEMP 36.6; O2SAT 99
== END 2025-01-16 12:01 | disposition home or self-care (01) ==
PROVIDERS: Emergency Provider Emergency Medicine; PCP Internal Medicine
DX: I49.9 Cardiac arrhythmia, unspecified (principal); R00.2 Palpitations; I48.91 Unspecified atrial fibrillation; I10 Essential (primary) hypertension; Z79.01 Long term (current) use of anticoagulants; Z79.899 Other long term (current) drug therapy
CPT/HCPCS: 36415; 71046; 80053; 83735; 84484; 85027; 85610; 93005; 99283; 99285

== ENCOUNTER → 2025-01-16 08:23 | Outpatient (BNV) | payer MEDICARE, OTHER, SELFPAY | PROVIDERS: Emergency Provider Emergency Medicine; PCP Internal Medicine; Visit Provider Internal Medicine | DX: I48.91 Unspecified atrial fibrillation (principal); R00.1 Bradycardia, unspecified | CPT/HCPCS: 93010 ==

== ENCOUNTER 2025-02-06 08:31 | Outpatient (REF) | payer MEDICARE, OTHER, SELFPAY ==
--- OUTSIDE RECORDS SUMMARY | 2023-10-05 05:20 | XMS_ITS ---
Author Organization [facility] Address [address] [place] [address] Care Team Providers Care [place] Or [place] Auditor Name Role Phone Melody CHA, Karie Primary Care Provider Phillip Mckeon [phone] REASON FOR VISIT Patient presents today for a screening colonoscopy Encounters Encounter Location Date Provider Diagnosis [facility] [address] [place] [address] 10/05/2023 Phillip Hernandez Plan Of Treatment No Information Progress Notes * JOSE MANUEL VASQUEZ GDOB:1955 (69 yo F)Acc No.[id number]:10/05/2023 Progress Notes Patient: JOSE MANUEL INIGUEZ Provider: Jonna Hernandez MD :1955 A ge:68 Y S ex:Female Date:10/05/2023 Address:[address] [place], [place] [id number] Pcp:Karie Oliver MD Subjective: * Chief Complaints: * 1 . Patient presents today for a screening colonoscopy. * Medical History: Objective: * Vitals: Assessment: Plan: * Treatment: * * The named appointment provid er may or may not be the originator of this progress note, and it is not deemed complete until electronically signed by the appointment provider. Sign off status: Pending * Provider: Jonna Hernandez MD Date: 0 10/05/2023 Generated for Printi ng/Fanancyg/eTransmitting on: 0 02/06/2025 09:39 AM EDT
--- OUTSIDE RECORDS SUMMARY | 2024-04-17 05:30 | XMS_ITS ---
Author Organization [facility] Address [address] [place] [address] Care Team Providers Care Record Keeper Name Role Phone Melody CHA, Karie Primary Care Provider Phillip Mckeon Unavailable [phone] REASON FOR VISIT screening, fam hx colon ca Problems Problem Type SNOMED Code ICD Code Onset Dates Problem Status W/U Status Risk Notes Problem Diverticular disease of colon (206045531) Diverticulosis of large intestine without perforation or abscess without bleeding (K57.30) Active confirmed Encounters Encounter Location Date Provider [place] [facility] [place] [address] [place], [place] [phone] [place]17/2024 Phillip Hernandez Colon cancer scree zachary [...] JOSE MANUEL VASQUEZ GDOB:1955 (69 yo F)Acc No.[id number]:04/17/2024 COLON WITH MAC Patient: JOSE MANUEL INIGUEZ Provider: Jonna Hernandez MD :1955 A ge:68 Y S ex:Female Date:04/17/2024 Address:[address] [place], [place] [id number] Pcp:Karie Oliver MD Subjective: * Chief Complaints: [...] 06/17/2023 Generated for Pradeep garcia/Mendoza/Anoopitting on: 0 02/06/2025 09:39 AM EDT
--- OUTSIDE RECORDS SUMMARY | 2025-02-06 09:39 | XMS_ITS | Patient Health Record ---
Author Organization [facility] Address [address] [place] [address] Care Team Providers Care Blue Prints Trimmer Name Role Phone Melody CHA, Karie Primary Care Provider Phillip Mckeon Unavailable [phone] Allergies Allergen (clinical drug ingredient) Drug/Non Drug [...] Problem Screening for malignant neoplasm of colon (930466219) Encounter for screening for malignant neoplasm of colon (Z12.11) Active confirmed Problem Pre-procedure evaluation check (275240360) Encounter for other preprocedural examination (Z01.818) Active confirmed Problem Diverticular disease of colon (522186743) Diverticulosis of large intestine without perforation or abscess without bleeding (K57.30) Active confirmed Problem Long-term current use of aspirin (742124304243671 ) Aspirin long-term use (Z79.82) Active confirmed Problem Family History of Cancer of Colon (Situation) (887300740) Family history of colon cancer (Z80.0) Active confirmed Encounters Encounter Location Date Provider Diagnosis [facility] [address] [place] [id number] 04/17/2024 Phillip Hernandez Colon cancer lme zachary Z12.11 ; Family history of colon [...] hemorrhoids (ICD-10 - K64.8) Plan Of Treatment Future Test Test Name Order Date COLONOSCOPY 06/25/2013 COLONOSCOPY 01/17/2024 Insurance Providers Payer Name Payer Address Payer Phone Subscriber Number Group Number Insured Name Patient Relationship to Insured Coverage Start Date Coverage End Date MEDICARE OF [place] [address] [place] [address] [phone] [id number] JOSE MANUEL VASQUEZ Self - patient is the insured [employer]) [address] [place] [address] [id number] JOSE MANUEL VASQUEZ Self - patient is the insured Medical (General) History Medical History History ICD Code Colonoscopy 06-04-2008--neg e xcept for sigmoid diverticulosis and internal hemorrhoids. 2 episodes of A. fib--last time was in 2 012 Hypertension Denies AR,DM,CVA,Lung disease,renal dise ase Negative colonoscopy in August 2013 Surgical History Surgery Date(Month/Year) Ankle surgery Varicose vein surgery Right shoulder
--- OUTSIDE RECORDS SUMMARY | 2025-02-06 09:39 | XMS_ITS | Clinical Summary ---
Author Organization [facility] Address [address] [place] [address] Phone Care Team Providers Care Coil Winding Supervisor Name Role Phone Karie Oliver MD Primary Care Provider Allergies Active Allergy Reactions Criticality Noted Date Comments Iodinated Contrast Media Syncope,Itching ,Swe lling High 09/24/2024 Sulfamethoxazole Hives,Itching,Rash, Swelling Low 09/24/2024 Sulfamethoxazole-Trimethop rim 09/24/2024 Other Reaction(s): hives, swelling Medications atenolol (TENORMIN) 50 mg tablet Take 50 mg by mouth daily. Active hydroCHLOROthiaz maggy 12.5 mg capsule Take 12.5 mg by mouth daily. Active LORazepam (ATIVAN) 0.5 MG tablet TAKE 1 TABLET ORALLY DAILY NEEDED FOR ANXIETY DURING PLANE TRAVEL 08/02/19 25 Active valACYclovir (VALTREX) 500 MG tablet Take 500 mg by mouth daily. Active cetirizine (ZYRTEC) 10 MG tablet Take 10 mg by mouth daily. Active ELIQUIS 5 mg tablet Take 1 tablet (5 mg total) by mouth 2 (two) times a day. 180 tablet 3 09/25/19 25 Active flecainide (TAMBOCOR) 100 MG tabletIndication s:Paroxysmal atrial fibrillation Take 1 tablet (100 mg total) by mouth 2 (two) times a day as needed (For atrial fibrillation, may take an additional dose after 12 hours). 30 tablet 1 01/31/20 25 Active predniSONE (DELTASONE) 20 mg tablet (To-Go) 05 025 Discontinued Active Problems Problem Noted Date Diagnosed Date Paroxysmal atrial fibrillation 01/30/2025 Assessment & Plan (01/30/2025 11:06 AM EDT): She is on Eliquis for CVA prophylaxis. Patient had a another episode of A-fib within the last 2 to 3 weeks. This is about 6 months after her last episode. We briefly discussed ablation which she is not interested in at this time given the infrequency of her episodes. Will get a monitor to evaluate however. She has a follow-up scheduled in March to review the results. Will send pill in pocket flecainide for breakthrough A-fib episodes. Plan: Continue Eliquis Start flecainide 100 mg as needed for A-fib MCT x 7 days Follow-up on 03/27/2025 as scheduled Encounters Date Type Department Care Team Description 01/30/2025 8:00 AM EDT Office Visit [facility] [address], [address] [place] [address] Sindy Cline DNP Paroxysmal atrial fibrillation (Primary Dx) 01/16/2025 Telephone [facility] [address], [address] [place] [address] David Coates MD from Last 3 Months Social History Tobacco Use Types Packs/Day Years Used Date Smoking Tobacco: Never Smokeless Tobacco: Never Education Answer Date Recorded Are you interested [...] Sign Reading Time Taken Comments Blood Pressure 132/84 01/30/2025 7:42 AM EDT Pulse 51 01/30/2025 7:42 AM EDT Temperature - - Respiratory Rate - - Oxygen Saturation 97% 01/30/2025 7:42 AM EDT Inhaled Oxygen Concentration - - Weight 106.1 kg (234 lb) 01/30/2025 7:42 AM EDT Height 167.6 cm (5' 5.98 ) 01/30/2025 7:42 AM ED T Body Mass Index 37.79 01/30/2025 7:42 AM EDT Plan of Treatment Upcoming Encounters Date Type Department Care Team (Late st Contact Info) Description 01/30/2025 Procedure Pass [facility] [address] [place] [address] 02/27/2025 8:45 AM EDT [place] [address] Sindy Cline DNP [address] [place] [address] [email or web address] 04/01/2025 10:00 AM EST Office Visit [facility] [address] [place] [address], [address] [place] [address] Sindy Cline DNP [address] [place] [address], [address] [address] 07/15/2025 10:40 AM EST Office Visit [facility] [address] [place] [address], [address] [address] David Coates MD [address] [place] [id number] Health Maintenance Due Date Last Done Comments Adult Td,Tdap Booster 1957 CREATININE LEVEL 1957 LIPID PANEL 1957 POTASSIUM LEVEL 1957 DEPRESSION SCREENING 1969 HEPATITIS C SCREENING 08/28/1975 SCREENING FOR DIABETES 1992 MAMMOGRAM 1997 COLOGUARD 2002 COLONOSCOPY 2002 COLORECTAL CANCER SCREENING 2002 FIT TEST 2002 FOBT 2002 SIGMOIDOSCOPY 2002 VIRTUAL COLONOSCOPY 2002 PNEUMOCOCCAL VACCINES (50+ y ears) (1 of 1 - PCV) 08/28/2007 ZOSTER VACCINES (1 of 2) 08/28/2007 RSV VACCINE (1 - Risk 60-74 years 1-dose series) 2017 OSTEOPOROSIS SCREENING INITI AL (ONE-TIME) 2022 INFLUENZA VACCINE (#1) 2024 COVID-19 VACCINE (1 - 2023-2 5 season) 2025 SMOKING STATUS SCREENING (On ce After 26 Yrs) Completed 01/30/2025 HEPATITIS A VACCINES Aged Out No long [...] file Insurance MEDICARE PART A & B [employer] MEDICARE SUPPLEMENT MEDICARE PART A & B [employer] MED[employer] SUPPLEMENT MEDICARE PART A & B [employer] MED[employer]ARE SUPPLEMENT MEDICARE PART A & B [facility] [employer] MEDICARE SUPPLEMENT MEDICARE PART A & B [employer] MED[employer]ARE SUPPLEMENT MEDICARE PART A & [place] [address] [place] [address] [employer] MEDICARE SUPPLEMENT Care Teams Coil Winding Supervisor Relationship Specialty Start Date End Date Karie Oliver MD [address] [place] [id number] PCP - General Internal Medicine 08/19/24 Additional Source Comments The information contained in this document represents components of the legal health record. It is not the complete legal health record.[facility]
--- OUTSIDE RECORDS SUMMARY | 2025-02-06 09:39 | XMS_ITS | Encounter Summary ---
Author Organization [facility] Address [address] [facility] [address] [place] [address] Phone Care Team Providers Care Implementation Advisor Name Role Phone Karie Oliver MD Primary Care Provider Encounter Details Date Type Department Care Team (Late st Contact Info) Description 09/24/2024 Procedure Pass [facility] [place] [place] [address] Social History Tobacco Use Types Packs/Day Years [...] Description 01/30/2025 Procedure Pass Event Monitor [address] [place] [address] 02/27/2025 8:45 AM EDT Appointment Event Monitor [address] [place] [address] Sindy Cline DNP [address] [facility], [address] [place] [address] 04/01/2025 10:00 AM EST Office Visit [facility] [address] [place] [address] Dr [address] Floor, [address] [place] [address] Sindy Cline DNP [address] [facility], [address] [place] [address] 07/15/2025 10:40 AM EST Office Visit [facility] [address], [address] [place] [address] David Coates MD [address] [place] [address], [address] [address] documented as of this encounter Visit Diagnoses Not on filedocumented in this encounter Care Teams Implementation Advisor Relationship Specialty Start Date End Date Karie Oliver MD [address] [place] [address] PCP - General Internal Medicine 08/19/24 documented as of this encounter Additional Source Comments The information contained in this document represents components of the legal health record. It is not the complete legal health record.[facility]
--- OUTSIDE RECORDS SUMMARY | 2025-02-06 09:39 | XMS_ITS | Patient Health Record ---
Author Organization [facility] Address [address] [place] [address] Care Team Providers Care Director Of Business Operations Name Role Phone Melody CHA, Karie Lora Primary Care Provider Un available Black, Manju Unavailable [phone] Allergies Allergen (clinical drug ingredient) Drug/Non Drug [...] Notes Problem Plantar wart of left foot ([id number] 71333) Plantar wart of left foot (B07.0) Active confirmed Plan Of Treatment Pending Test Test Name Order Date [id number] Destruction, 06-0411/07/2022 [id number] Destruction, 06-0412/19/2022 [id number]- Debride <25 sq cm 09/24/2013 Insurance Providers Payer Name Payer Address Payer Phone Subscriber Number Group Number Insured Name Patient Relationship to Insured Coverage Start Date Coverage End Date [facility] ([facility] [address] [place] [address] [id number] Terra Martel Self - patient is [...]
[2025-02-06 10:38] LABS: Cholesterol 217 mg/dL (<200); HDL Cholesterol 55 mg/dL (>40); Triglycerides 107 mg/dL (<150)
== END 2025-02-06 08:32 | disposition home or self-care (01) ==
LOC: HO.HMGCLDS 08:31
PROVIDERS: PCP Internal Medicine; Visit Provider Internal Medicine
DX: I10 Essential (primary) hypertension (principal); E78.2 Mixed hyperlipidemia; E66.9 Obesity, unspecified; R79.89 Other specified abnormal findings of blood chemistry; Z78.0 Asymptomatic menopausal state
CPT/HCPCS: 36415; 80061; 82306; 84443

== ENCOUNTER 2025-02-10 09:04 | Outpatient (AMB) | payer MEDICARE, OTHER, SELFPAY ==
--- OUTSIDE RECORDS SUMMARY | 2023-10-05 05:20 | XMS_ITS ---
Author Organization [facility] Address [address] [place] [address] Care Team Providers Care Manager Front Name Role Phone Melody CHA, Karie Primary Care Provider Phillip Mckeon [phone] REASON FOR VISIT Patient presents today for a screening colonoscopy Encounters Encounter Location Date Provider Diagnosis [facility] [address] [place] [address] 10/05/2023 Phillip Hernandez Plan Of Treatment No Information Progress Notes * JOSE MANUEL VASQUEZ GDOB:1955 (69 yo F)Acc No.[id number]:10/05/2023 Progress Notes Patient: JOSE MANUEL INIGUEZ Provider: Jonna Hernandez MD :1955 A ge:68 Y S ex:Female Date:10/05/2023 Address:[address] [place], [place] [id number] Pcp:Karie Oliver MD Subjective: * Chief Complaints: [...] 10/05/2023 Generated for Printi ng/Fanancyg/eTransmitting on: 0 02/10/2025 10:37 AM EDT
--- NOTE | 2025-02-10 09:07 | A.OFFPC_ITS ---
Vital Signs 02/10/25 09:21 Height 5 ft 6 in Weight 237 lb BMI 38.2 BP 110/70 Blood Pressure Location Lt brachial Position Sitting Respiration 16 Pulse 51 Pulse Source Pulse Oximeter Temp 97.7 F Temp Source Oral Pulse Oximetry (%) 98 Oxygen Delivery Method Room Air Intake Visit Reasons: 8 months f/up Intake Note: Pt is here today for her 8mo. f/u Allergies bactrim Allergy (Intermediate, Verified 02/10/25 09:40) swelling, hives contrast dye Allergy (Intermediate, Verified 02/10/25 09:40) swelling of ear oxycodone Allergy (Intermediate, Verified 02/10/25 09:40) shaky/nausea sulfamethoxazole (From BACTRIM) Allergy (Intermediate, Verified 02/10/25 09:40) HIVES trimethoprim (From BACTRIM) Allergy (Intermediate, Verified 02/10/25 09:40) HIVES Medication List - Last Reconciled 02/10/25 by Karie Oliver MD apixaban (Eliquis) 5 mg PO BID 30 days atenolol 50 mg PO DAILY flecainide mg PO hydrochlorothiazide 12.5 mg PO DAILY lorazepam 0.5 mg PO DAILY PRN valacyclovir (Valtrex) 500 mg PO DAILY Tobacco use date assessed: 02/10/25 Fall risk assessment: 1 Fall in past year Last assessed Fall Risk: 02/10/25 Dental Screening Dental Screen Date: 02/10/25 Did you have a dental visit in the last 12 months?: Yes Did you have a dental problem in the last 6 months where you did not have access to dental care?: No Was dental information given to patient?: Patient has dentist HPI 8 months f/up HPI Details 69-year-old lady with history of hyperte nsion, atrial fibrillation currently on Eliquis, mixed dyslipidemia, here today for her follow-up. Has been compliant with taking her medications, feels well, with no complaints at present time. Recent fasting labs done showed normal CBC, but lipids showed elevated LDL cholesterol, vitamin-D and thyroid levels are within normal limits [facility] Medical History History of Papanicolaou smear of cervix History of atrial fibrillation Degenerative joint disease of right hip Obesity (BMI 30-39.9) Benign positional vertigo Bilateral renal stones Sinus bradycardia by electrocardiogram Ureterolithiasis Pain, foot, right, chronic Tibia and fibula open fracture, right Essential hypertension Mixed dyslipidemia Surgical History Hx of colonoscopy History of shoulder surgery History of ankle surgery Family History Father CVD (cardiovascular disease) Maternal Aunt Colon cancer Maternal Uncle Colon cancer Brother No problems noted. Brother No problems noted. Sister No problems noted. Sister No problems noted. Son No problems noted. Daughter No problems noted. Social History Housing: House Are you a primary transition of care specialist to a significant other at home: No Do you presently have visiting nurse or other home services: No Alcohol intake: current Alcohol intake frequency: holidays/special occasions only Alcohol type: wine Patient Tobacco Use Status: Former Tobacco user e-Cigarette/Vaping Use: Never Used Advance Directives Date on File: 06/06/24 service: No Current occupational status: retired Cognitive needs: No Hearing needs: No Vision needs: Yes Questionnaire PHQ-9 Over the last 2 weeks, how often have you been bothered by any of the following problems? 1. Little interest or pleasure in doing things: not at all 2. Feeling down, depressed, or hopeless: not at all 3. Trouble falling or staying asleep, or sleeping too much: not at all 4. Feeling tired or having little energy: not at all 5. Poor appetite or overeating: not at all 6. Feeling bad about yourself - or that you are a failure or have let yourself or your family down: not at all 7. Trouble concentrating on things, such as reading the newspaper or watching television: not at all 8. Moving or speaking so slowly that other people could have noticed. Or the opposite - being so fidgety or restless that you have been moving around a lot more than usual: not at all 9. Thoughts that you would be better off or of hurting yourself in some way: not at all Total score: 0 Depression Screening Interpretation: Negative Depression Screening Done: Yes Source: Developed by Drs. Phillip Lynn, Mirna Avilez, Georgi Gilliam and colleagues, with an educational sunshine from [employer]. Thrive Questionnaire Date Thrive assessed: 05/28/24 I am a: Patient What is your living situation today?: I have a steady place to live Within the past 12 months, did the food you bought not last and you didn't have the money to get more?: Never true Within the past 12 months, did you worry whether your food would run out before you got money to buy more?: Never true Do you have trouble paying for medicines?: No Do you have trouble getting transportation to medical appointments?: No Do you have trouble paying your heating and electricity bill?: No Do you have trouble taking care of your child, family member or friend?: No Do you have trouble with day-to-day activities such as bathing, preparing meals, shopping, managing finances, etc.?: No Are you currently unemployed and looking for a job?: No Are you interested in more education?: No Please select the resources that you would like help with: None Currently or been in a relationship where the following occur: No concerns reported THRIVE Score: 0 AUDIT C Alcohol Use Questionnaire (AUDIT-C) 1. How often do you have a drink containing alcohol?: 2-4 times a month 2. How many drinks containing alcohol do you have on a typical day when you are drinking?: 1 or 2 3. How often do you have six or more drinks on one occasion?: Never Total Score: 2 MITCHELL-7 AMB Questionnaire MITCHELL-7 Date MITCHELL - 7 assessed: 06/04/24 Feeling nervous, anxious, or on edge: 0 = Not at all Not being able to stop or control worryin = Not at all Worrying too much about different things: 0 = Not at all Trouble relaxin = Not at all Being so restless that it is hard to sit still: 0 = Not at all Becoming easily annoyed or irritable: 0 = Not at all Feeling afraid as if something awful might happen: 0 = Not at all Total MITCHELL-7 score (0-4 normal; 5-9 mild; 10-14 moderate; 15-21 severe): 0 Source: Developed by Mirna Bedoya Kurt Kroenke and colleagues, with an educational sunshine from [employer]. Review of Systems Const Denies body aches, Denies fatigue and Denies weakness Eyes Details: [facility] Reports no additional complaints ENT Reports no additional complaints Card Denies chest pain, Denies lightheadedness, Denies palpitations and Denies dyspnea Resp Denies chest congestion and Denies dyspnea GI Denies abdominal pain, Denies change in bowel habits and Denies heartburn Reports no additional complaints Musc Reports as per HPI Skin/Breast Denies breast pain, Denies breast mass, Denies lesions and Denies rash Neuro Denies weakness Psych Reports no additional complaints Endo Denies fatigue, Denies polydipsia, Denies polyuria and Denies palpitations Ken/Lymph Reports no additional complaints Aller/Immun Reports seasonal rhinorrhea Physical exam (Primary Care) Vital Signs: Last Vital Signs Temp 97.7 F 02/10/25 09:21 Pulse 51 02/10/25 09:21 Resp 16 02/10/25 09:21 BP 110/70 02/10/25 09:21 Pulse Ox 98 02/10/25 09:21 Oxygen Delivery Method Room Air 02/10/25 09:21 BMI result Body Mass Index 38.2 Tobacco/Smoking Status: Tobacco use Status Tobacco use date assessed 02/10/25 02/10/25 09:09 Patient Tobacco Use Status Former Tobacco user 02/10/25 09:09 e-Cigarette/Vaping Use Never Used 02/10/25 09:09 PHQ-9: PHQ-9 Score PHQ-9: Total score 0 02/10/25 09:39 Depression Screening Interpretation: Negative Thrive Assessment: Date of Thrive Assessment Date Thrive assessed 05/28/24 02/10/25 09:09 Currently or been in a relationship where the following occur: No concerns reported Const Other: Obese, Alert oriented x3, no acute distress noted, ambulatory with normal gait HENMT Mouth: Normal oral and palatal mucosa present and moist mucous membranes Eyes General: appearance normal, both eyes and all related structures Neck Other: Supple, no lymphadenopathy, thyroid gland nonpalpable and nontender Resp Auscultation: clear to auscultation bilaterally Cardio Other: S1-S2 present, regular rate and rhythm GI Other: Normal bowel sounds, soft, nontender, no mass palpated Back/Spine/Pelvis Back: No back tenderness Neuro General: gait normal, moves all extremities, Normal light touch and pain sensation, no focal motor deficits and CN's II-XI intact bilaterally Extrem General: Yes full ROM, Yes no joint enlargement, Yes no pedal edema and Yes normal gait Psych Appearance: grossly normal and well kempt Mental Status: mental status grossly normal Speech and movement: Normal speech and movement present Affect: normal affect Results Reviewed Results Reviewed: Name: Terra Martel Age/Sex: 69/F : 1955 Unit#: [id number] Attend Dr: Melissa Ivy MD Re01/16/25 Status: DEP [facility] Dis[facility]: SPEC : [id number] DONNA: 01/16/25 STATUS: COMP REQ : [id number] RECD: 01/16/[address]: Melissa Ivy MD COMP: 01/16/25 ENTERED: 01/16/[address]: Karie Oliver MD [facility] ED Physician ORDERED: CBC No Diff Test Result Flag Reference WBC 6.1 4.8-10.8 X10*3/uL RBC 4.81 4.20-5.50 X10*6/uL HGB 15.6 12.0-16.0 g/dl HCT 44.8 37.0-47.0 % MCV 93.1 80.0-98.0 fL MCH 32.4 27.0-33.0 pg MCHC 34.8 31.0-35.0 g/dl RDW 13.2 11.0-16.0 % PLT 258 160-400 X10*3/uL MPV 10.2 9.4-12.3 fL NRBC Pct Auto 0.0 0.0-0.2 /100WBC NRBC Abs Auto 0.000 0.0-0.012 X10*3/uL Name: Terra Martel Age/Sex: 69/F : 1955 Unit#: [id number] Attend Dr: Karie Oliver MD Re02/06/25 Status: DEP [facility] Disch: SPEC : [id number] DONNA: 02/06/25 STATUS: COMP REQ : [id number] RECD: 02/06/[address] [facility] [address]: Karie Oliver MD COMP: 02/06/25 ENTERED: 02/06/[address] [facility] [address]: ORDERED: Lipid Panel, Vitamin D 25-OH, TSH Rflx Test Result Flag Reference Triglyceride 107 <150 mg/dL Desirable Triglyceride: less than 150 mg/dL Borderline High Triglyceride 150-199 mg/dL High Triglyceride: 200-499 mg/dL Very High Triglyceride: greater than or equal to 5OO mg/dL Cholesterol 217 H <200 mg/dL Desirable Cholesterol: less than 200 mg/dL Borderline High Cholesterol: 200-239 mg/dL High Cholesterol: greater than 239 mg/dL LDL Calculated 141 H <100 mg/dL Desirable LDL: less than 100 mg/dL Near Optimal/Above Optimal LDL: 110-129 mg/dL Borderline High LDL: 130-159 mg/dL High LDL: 160-189 mg/dL Very High LDL: greater than or equal to 190 mg/dL HDL 55 >40 mg/dL Desirable HDL: greater than 40 mg/dL Note: This HDL assay may give artificially low results in patients with liver disease. Vitamin D 25-OH 72.5 >30 ng/mL Health Based Reference Values* < 20 ng/mL Deficient 20-30 ng/mL Insufficient > 30 ng/mL Sufficient *Alice NAVARRO. N Engl J Med. 2007;357:266-280 There is no well-established upper level of normal vitamin D levels. Some laboratories use 50 ng/mL as an upper limit of normal. However, toxicity is patient-dependent and may occur at any level. Careful correlation with the patient's presentation is necessary and, if there is concern for vitamin D toxicity, treatment should be considered irrespective of the serum level. Care must be taken in interpreting Vitamin D results from different laboratories and methodologies. Published data demonstrated that results from patients undergoing hemodialysis may show a negative bias when tested with various automated 25-OH vitamin D assays when compared to LC-MS/MS. When testing samples from patients whose predominant form of Vitamin D is Vitamin D2, such as patients receiving Vitamin D2 supplementation, results that are subtherapeutic should be confirmed with another method such as LC-MS/MS. TSH 2.56 0.32-4.0 uIU/mL Coding Level of Care Code Est Pt Level 4 (75722) Complex EM visit Add On G2211 Diagnoses Mixed dyslipidemia E78.2 Essential hypertension I10 History of atrial fibrillation Z86.79 Obesity (BMI 30-39.9) E66.9 Assessment & Plan Assessment & Plan (1) Mixed dyslipidemia: Code(s): E78.2 - Mixed hyperlipidemia Category: Medical Plan: Reviewed recent fasting lipid profile with patient with elevated LDL cholesterol. Reinforced importance of adherence to low-cholesterol diet and regular exercise, at least 30 minutes 3 to 4 times a week. Advised patient to make healthy food choices, eat more fruits, vegetables, whole grains, wild caught fish and low-fat dairy. Limit amount of meat and fried or fatty food products, as well as processed foods and fast foods. Follow-up scheduled with repeat fasting lipid panel in months. (2) Essential hypertension: Code(s): I10 - Essential (primary) hypertension Category: Medical Plan: Blood pressure at goal of less than 130/80. Continue with current medication. Reinforced importance of following a low sodium diet, getting regular exercise, and lowering stress levels. (3) History of atrial fibrillation: Comment: PAF-seen by Dr. Neville several years ago, per patient and placed on aspirin-last occurrence 2011 Code(s): Z86.79 - Personal history of other diseases of the circulatory system Category: Medical Plan: Continue apixaban 5 mg twice a day and atenolol 50 mg daily (4) Obesity (BMI 30-39.9): Code(s): E66.9 - Obesity, unspecified Category: Medical Plan: . Discussed need to increase activity and weight reduction. Recommended focusing on improving health instead of dieting. Mediterranean diet is a healthy diet that helps, limit food high in fat, sugar, and calories. Eat slowly, pay attention to portion sizes, plan your meals ahead of time, start regular physical activity, at least 150 minutes of moderate intensity exercise, Orders: Orders Aspartate Amino Transferase 07/20/25 E66.9 - Obesity, unspecified, E78.2 - Mixed hyperlipidemia, I10 - Essential (primary) hypertension, N20.0 - Calculus of kidney, Z86.79 - Personal history of other diseases of the circulatory system Basic Metabolic Panel Fasting 07/20/25 E66.9 - Obesity, unspecified, E78.2 - Mixed hyperlipidemia, I10 - Essential (primary) hypertension, N20.0 - Calculus of kidney, Z86.79 - Personal history of other diseases of the circulatory system Lipid Panel 07/20/25 E66.9 - Obesity, unspecified, E78.2 - Mixed hyperlipidemia, I10 - Essential (primary) hypertension, N20.0 - Calculus of kidney, Z86.79 - Personal history of other diseases of the circulatory system Alanine Aminotransferase 07/20/25 E66.9 - Obesity, unspecified, E78.2 - Mixed hyperlipidemia, I10 - Essential (primary) hypertension, N20.0 - Calculus of kidney, Z86.79 - Personal history of other diseases of the circulatory system
[2025-02-10 09:21] VITALS: BP 110/70; PULSE 51; RESP 16; TEMP 36.5; O2SAT 98; BMI 38.2
--- OUTSIDE RECORDS SUMMARY | 2025-02-10 10:37 | XMS_ITS | Encounter Summary ---
Author Organization [facility] Address [address] [place] [address] Phone Care Team Providers Care Assistant Account Manager Name Role Phone Karie Oliver MD Primary Care Provider Encounter Details Date Type Department Care Team (Late st Contact Info) Description 09/24/2024 Procedure Pass Echo Lab [place] [place] [address] Social History Tobacco Use Types Packs/Day Years [...] Description 01/30/2025 Procedure Pass Event Monitor [address] [place] [address] 02/27/2025 8:45 AM EDT Appointment Event Monitor [address] [place] [address] Sindy Cline DNP [address], [address] [place] [address] 04/01/2025 10:00 AM EST Office Visit [facility] [address] [place] [address] Dr [address] Floor, [address] [place] [address] Sindy Cline DNP [address], [address] [place] [address] 07/15/2025 10:40 AM EST Office Visit [facility] [address] Floor, [address] [place] [address] David Coates MD [address] [place] [address], [address] [address] documented as of this encounter Visit Diagnoses Not on filedocumented in this encounter Care Teams Assistant Account Manager Relationship Specialty Start Date End Date Karie Oliver MD [address] [place] [address] PCP - General Internal Medicine 08/19/24 documented as of this encounter Additional Source Comments The information contained in this document represents components of the legal health record. It is not the complete legal health record.[facility]
--- OUTSIDE RECORDS SUMMARY | 2025-02-10 10:37 | XMS_ITS | Patient Health Record ---
Author Organization [facility] Address [address] [place] [address] Care Team Providers Care Bottom Buffer Name Role Phone Melody CHA, Karie Primary Care Provider Phillip Mckeon Unavailable [phone] Allergies Allergen (clinical drug ingredient) Drug/Non Drug [...] Problem Screening for malignant neoplasm of colon (257756665) Encounter for screening for malignant neoplasm of colon (Z12.11) Active confirmed Problem Pre-procedure evaluation check (584776984) Encounter for other preprocedural examination (Z01.818) Active confirmed Problem Diverticular disease of colon (038688479) Diverticulosis of large intestine without perforation or abscess without bleeding (K57.30) Active confirmed Problem Long-term current use of aspirin (138539859621727 ) Aspirin long-term use (Z79.82) Active confirmed Problem Family History of Cancer of Colon (Situation) (533309162) Family history of colon cancer (Z80.0) Active confirmed Encounters Encounter Location Date Provider Diagnosis [facility] [address] [place] [phone] 04/17/2024 Phillip Hernandez Colon cancer lme zachary [...] OF [place] [address] [place] [address] [id number] JOSE MANUEL VASQUEZ Self - patient is the insured [employer] ([employer]) [address] [place] [address] [id number] JOSE MANUEL VASQUEZ Self - patient is the insured Medical (General) History Medical History History ICD Code Colonoscopy 06-04-2008--neg e xcept for sigmoid diverticulosis and internal hemorrhoids. 2 episodes of A. fib--last time was in 2 012 Hypertension Denies NM,DM,CVA,Lung disease,renal dise ase Negative colonoscopy in August 2013 Surgical History Surgery Date(Month/Year) Ankle surgery Varicose vein surgery Right shoulder
--- OUTSIDE RECORDS SUMMARY | 2025-02-10 10:37 | XMS_ITS | Clinical Summary ---
Author Organization [facility] Address [address] [place] [address] Phone Care Team Providers Care Grain Operator Name Role Phone Karie Oliver MD Primary [...] Description 01/30/2025 8:00 AM EDT Office Visit [facility] [address], [address] [place] [address] Sindy Cline DNP Paroxysmal atrial fibrillation (Primary Dx) 01/16/2025 Telephone [facility] [address], [address] [place] [address] David Coates MD from Last 3 Months [...] Procedure Pass Event Monitor [address] [place] [address] 02/27/2025 8:45 AM EDT [place] [address] Sindy Cline DNP [address] [place] [address] [email or web address] 04/01/2025 10:00 AM EST Office Visit [facility] [address] [place] [address], [address] [place] [address] Sindy Cline DNP [address] [place] [address], [address] [address] 07/15/2025 10:40 AM EST Office Visit [facility] [address] [place] [address], [address] [address] David Coates MD [address] [place] [address] Health Maintenance Due Date Last Done Comments [...] file Insurance MEDICARE PART A & B [facility] SUPPLEMENT MEDICARE PART A & B [employer] MEDICARE SUPPLEMENT MEDICARE PART A & B [employer] MEDICARE SUPPLEMENT MEDICARE PART A & B [facility] MEDICARE SUPPLEMENT MEDICARE PART A & B [employer] MEDICARE SUPPLEMENT MEDICARE PART A & [place] [address] [place] [address] EXTENSION MEDICARE SUPPLEMENT Care Teams Grain Operator Relationship Specialty Start Date End Date Karie Oliver MD [address] [place] [id number] PCP - General Internal Medicine 08/19/24 Additional Source Comments The information contained in this document represents components of the legal health record. It is not the complete legal health record.[facility]
== END 2025-02-10 10:58 | disposition home or self-care (01) ==
LOC: HO.HMCC 09:04
PROVIDERS: PCP Internal Medicine; Visit Provider Internal Medicine
DX: E78.2 Mixed hyperlipidemia (principal); I10 Essential (primary) hypertension; Z68.38 Body mass index [BMI] 38.0-38.9, adult; E66.9 Obesity, unspecified; Z86.79 Personal history of other diseases of the circulatory system

== ENCOUNTER → 2025-02-10 09:04 | Outpatient (BNVA) | payer MEDICARE, OTHER, SELFPAY | PROVIDERS: PCP Internal Medicine; Visit Provider Internal Medicine | DX: I10 Essential (primary) hypertension (principal); E78.2 Mixed hyperlipidemia; E66.9 Obesity, unspecified; I48.91 Unspecified atrial fibrillation; Z79.01 Long term (current) use of anticoagulants; Z68.38 Body mass index [BMI] 38.0-38.9, adult | CPT/HCPCS: 96127; 99212 ==